=== PATIENT | male | born 1955 | race Caucasian/White ===

== ENCOUNTER 2024-08-31 11:04 | Outpatient (AMB) | payer BC, SELFPAY ==
--- NOTE | 2024-08-31 11:06 | MHC.PC.OV ---
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 Intake Note: patient here for new patient visit Hospice Manager Required: No Allergies No Known Allergies Allergy (Verified 08/31/24 11:42) Medication List - Last Reconciled 08/31/24 by Ford Alexandra CNP amlodipine-benazepril 5-10 mg 1 cap PO DAILY atorvastatin 40 mg PO DAILY dulaglutide (Trulicity) 0.75 mg subcut QWEEK empagliflozin (Jardiance) 25 mg PO QAM escitalopram oxalate 10 mg PO DAILY gabapentin 600 mg PO BID meloxicam 15 mg PO DAILY metformin 500 mg PO DAILY nitroglycerin 0.4 mg sublingual Q5M PRN Tobacco use date assessed: 08/31/24 Fall risk assessment: No Falls in past year Last assessed Fall Risk: 08/31/24 Dental Screening Dental Screen Date: 08/31/24 Did you have a dental visit in the last 12 months?: Yes Did you have a dental problem in the last 6 months where you did not have access to dental care?: No Was dental information given to patient?: Patient has dentist HPI HPI Comments History of Present Illness Details New patient Prior PCP:?[facility], [place], [place]. Lyla Brar APRN Last office visit/CPE: 06/2023 Acute issue(s): Hypertension - He is on amlodipine-benazepril 5-10 mg daily Type 2 diabetes - He is on metformin 500mg daily, trulicity 0.75 mg weekly and Jardiance 25mg daily Neuropathy right lower extremity - He is on gabapentin 600 mg twice daily Arthritis hands and knees - He is on meloxicam 15 mg daily HLD - He is on atorvastatin 40 mg daily Anxiety and depression - He is on escitalopram 10 mg daily h/o cardiac ischemia - He is on Jardiance 25mg daily and nitroglycerin 0.4 mg SL Q5M as needed PMHx: Type 2 diabetes, hyperlipidemia, hypertension, Levy's esophagus, erectile dysfunction, cardiac ischemia, arthritis of hands and knees right bicep tendon rupture, varicose vein of right thigh and left leg, shingles, generalized anxiety disorder, depression SurgHx: Arthroscopy of right knee, vasectomy, trigger finger release, lateral meniscus repair of right knee, carpal tunnel surgery of right and left wrist, rotator cuff surgery, tonsillectomy and adenoidectomy FHx: Mom: Cardiovascular disease, hypertension, hypercholesterolemia. Dad: Esophageal cancer, prostate cancer, hypertension, hyperlipidemia Social History - SocHx: Nonsmoker. drinks 2-3 beers twice weekly. No recreational drugs. - He does not always make dietary choices. He exercises routinely - He generally sleep well - His anxiety and depressive symptoms are controlled Health Maintenance - Last A1c was about a year ago, approximately 7.5% - Last eye exam was in 05/2024. He is also followed by a retinal specialist. He will sign a release for his PCP to obtain his ophthalmology record - Last colonoscopy was about 8 years ago at [facility] with normal findings. He will sign a release for his PCP to obtain record - Last foot exam was 4 years ago. He will be referred to podiatry - He is vaccinated for shingles - He is vaccinated for pneumonia - His last tetanus vaccine was in 2022 - He has not been vaccinated for the flu and will be vaccinated during this visit He was followed by Cardiology in [facility] for cardiac ischemia diagnosed in 2018. He requests new cardiology referral and will be referred to [facility] cardiology. [facility] Medical History (Updated 08/31/24 @ 13:11 by Lucinda Grant) Biceps tendon rupture Varicose veins of right thigh Erectile dysfunction Barretts esophagus Depression Hyperlipidemia Varicose vein of leg Shingles Neuropathy Arthritis Diabetes Cardiac ischemia High cholesterol High blood pressure Surgical History (Updated 08/31/24 @ 13:11 by Lucinda Grant) H/O arthroscopy of right knee History of vasectomy S/P trigger finger release H/O lateral meniscus repair of right knee History of carpal tunnel surgery of left wrist History of carpal tunnel surgery of right wrist History of rotator cuff surgery History of tonsillectomy and adenoidectomy Family History (Updated 08/31/24 @ 13:02 by Lucinda Grant) Mother High blood pressure High cholesterol Cardiovascular disease Father High blood pressure High cholesterol Prostate cancer Esophagus cancer Social History Housing: Apartment Patient Tobacco Use Status: Never used Tobacco e-Cigarette/Vaping Use: Never Used Second Hand Smoke Exposure: No service: No Current occupational status: employed Current occupation: [employer] Current occupational exposures/hazards: Yes Cognitive needs: No Hearing needs: No Vision needs: Yes Questionnaire PHQ-9 Over the last 2 weeks, how often have you been bothered by any of the following problems? 1. Little interest or pleasure in doing things: not at all 2. Feeling down, depressed, or hopeless: not at all 3. Trouble falling or staying asleep, or sleeping too much: not at all 4. Feeling tired or having little energy: not at all 5. Poor appetite or overeating: not at all 6. Feeling bad about yourself - or that you are a failure or have let yourself or your family down: not at all 7. Trouble concentrating on things, such as reading the newspaper or watching television: not at all 8. Moving or speaking so slowly that other people could have noticed. Or the opposite - being so fidgety or restless that you have been moving around a lot more than usual: not at all 9. Thoughts that you would be better off or of hurting yourself in some way: not at all Total score: 0 Depression Screening Interpretation: Positive Depression Screening Done: Yes 03551 - PHQ-9 Billing: Yes Source: Developed by Drs. Marko Castillo, Teri Donaldson, Jay Colindres and colleagues, with an educational jeanette from [employer]. Thrive Questionnaire Date Thrive assessed: 08/31/24 I am a: Patient What is your living situation today?: I have a steady place to live Within the past 12 months, did the food you bought not last and you didn't have the money to get more?: Never true Within the past 12 months, did you worry whether your food would run out before you got money to buy more?: Never true Do you have trouble paying for medicines?: No Do you have trouble getting transportation to medical appointments?: No Do you have trouble paying your heating and electricity bill?: No Do you have trouble taking care of your child, family member or friend?: No Do you have trouble with day-to-day activities such as bathing, preparing meals, shopping, managing finances, etc.?: No Are you currently unemployed and looking for a job?: No Are you interested in more education?: Yes Please select the resources that you would like help with: None Currently or been in a relationship where the following occur: No concerns reported THRIVE Score: 0 AUDIT C Alcohol Use Questionnaire (AUDIT-C) 1. How often do you have a drink containing alcohol?: 2-3 times a week 2. How many drinks containing alcohol do you have on a typical day when you are drinking?: 1 or 2 3. How often do you have six or more drinks on one occasion?: Never Total Score: 3 Score Reviewed/Action Taken: Yes KAREEN-7 AMB Questionnaire KAREEN-7 Date KAREEN - 7 assessed: 08/31/24 Feeling nervous, anxious, or on edge: 0 = Not at all Not being able to stop or control worryin = Not at all Worrying too much about different things: 0 = Not at all Trouble relaxin = Not at all Being so restless that it is hard to sit still: 0 = Not at all Becoming easily annoyed or irritable: 0 = Not at all Feeling afraid as if something awful might happen: 0 = Not at all Total KAREEN-7 score (0-4 normal; 5-9 mild; 10-14 moderate; 15-21 severe): 0 Source: Developed by Drs. Marko Castillo, Teri Donaldson, Jay Colindres and colleagues, with an educational jeanette from [employer]. KAREEN-7 Assessment Billing KAREEN-7 Assessment Tool: KAREEN-7 Assessment 33269 Review of Systems Const Details: Denies chills, Denies fatigue, Denies fever(s), Denies headache(s) and Denies weakness HEENT Denies change in vision, Denies dizziness, Denies headache(s), Denies hearing loss, Denies nasal congestion, Denies sinus pain, Denies sinus pressure and Denies sore throat Card Denies chest pain, Denies lightheadedness, Denies dyspnea and Denies other (palpitations) Resp Denies cough, Denies dyspnea and Denies wheezing GI Denies abdominal pain, Denies melena, Denies hematochezia, Denies change in bowel habits, Denies dyspepsia and Denies nausea Denies hematuria and Denies dysuria Musc Denies abnormal gait, Denies myalgias, Denies arthralgias, Denies numbness and Denies tingling Skin/Breast Denies rash, Denies unusual bruising and Denies wounds Neuro Denies abnormal gait, Denies dizziness, Denies headache(s), Denies memory loss, Denies numbness, Denies Sensory deficit (Neuro), Denies tingling and Denies weakness Psych Denies anxiety, Denies depression and Denies memory loss Endo Denies cold intolerance, Denies fatigue, Denies heat intolerance, Denies polydipsia and Denies polyuria Rico/Lymph Denies easy bleeding and Denies easy bruising Aller/Immun Denies wheezing Physical exam (Primary Care) Vital Signs: Last Vital Signs Temp 98.2 F 08/31/24 11:20 Pulse 79 08/31/24 11:20 Resp 16 08/31/24 11:20 BP 150/90 H 08/31/24 11:40 Pulse Ox 99 08/31/24 11:20 Oxygen Delivery Method Room Air 08/31/24 11:20 BMI result Body Mass Index 34.6 Tobacco/Smoking Status: Tobacco use Status Tobacco use date assessed 08/31/24 08/31/24 11:20 Patient Tobacco Use Status Never used Tobacco 08/31/24 11:20 e-Cigarette/Vaping Use Never Used 08/31/24 11:20 PHQ-9: PHQ-9 Score PHQ-9: Total score 0 08/31/24 14:37 Depression Screening Interpretation: Positive Thrive Assessment: Date of Thrive Assessment Date Thrive assessed 08/31/24 08/31/24 11:09 Currently or been in a relationship where the following occur: No concerns reported Const Other: General: no acute distress, well developed, alert and awake Nutritional Appearance: well nourished Orientation/consciousness: patient oriented x3 HENMT Head: Yes normocephalic and Yes atraumatic Ears: hearing grossly normal bilaterally and TM's normal bilaterally General nose exam: Normal external nose present and Normal nares present Mouth: Normal oral and palatal mucosa present and moist mucous membranes Teeth and gingiva: dentition normal Throat: Yes oropharynx normal Eyes Pupils: Equal, round and reactive pupils present and Pupil accommodation reflex normal EOM: EOMs intact bilaterally Neck Neck: Yes normal visual inspection, Yes no lymphadenopathy and Yes trachea midline Thyroid: Thyroid normal Carotids: no bruits Lymphatic: no lymphadenopathy noted Chest Chest palpation & inspection: normal inspection of the chest Resp Effort & Inspection: normal respiratory effort Auscultation: clear to auscultation bilaterally Cardio Rate: regular rate Rhythm: regular rhythm Heart sounds: S1 normal heart sound present, S2 normal heart sound present, no gallops, no murmurs and no rubs Bruits: no abdominal aortic bruits and no carotid bruits GI Palpation (GI): No Abdominal aortic bruit present, Soft to palpation, nontender, No hepatosplenomegaly present and No Rebound tenderness present Auscultation: normal bowel sounds General: Yes no CVA tenderness Back/Spine/Pelvis Back: no CVA tenderness Cervical Spine: cervical ROM normal and No Cervical spine tenderness Thoracic/Lumbar Spine: thoraco-lumbar ROM normal, No pain with thoraco-lumbar ROM, No thoracic spinal tenderness and No lumbar spinal tenderness Skin General: warm and dry. Normal skin color. Normal skin turgor Lesions: no lesions Rashes: no rashes Trauma: no lacerations or abrasions Wounds: no wounds Nails: normal Neuro General: patient oriented x3, gait normal and CN's II-XI intact bilaterally Cranial nerves: Yes Equal, round and reactive pupils present Cognition (Neuro): normal cognition Gait exam (Neuro): Normal gait present Motor exam (neuro): 5/5 motor strength present throughout Sensory Exam: No Sensory deficit (Neuro) Deep tendon reflexes (DTR's): Right patellar reflex intensity grade: 2+ and Left patellar reflex intensity grade: 2+ Extrem General: Yes normal to inspection, No edema and No calf tenderness Psych Appearance: grossly normal Affect: normal affect Attitude: cooperative Thought process: Normal thought process present Office Procedures Flu Questionnaire Does the patient have a severe egg allergy?: No Does the patient have severe life threatening allergies?: No Does the patient have a fever or illness today?: No Has the patient ever had Guillain-Brandon Syndrome?: No Has the patient ever had any past reaction to a flu shot?: No Results AMB Hemoglobin A1c AMB Hemoglobin A1c 7.2 % Last Edit by Lucinda Grant on 08/31/24 12:57 Immunizations Fluarix Triv [id number] (PF) 45 mcg (15 mcg x 3)/0.5 mL IM syringe Performing Provider: Ford Alexandra CNP Performing Location: [facility] Family Medicine Administered by: Mellissa Agustin RN on 08/31/24 14:08 Dose Route Admin Location Dispensed Lot Number Expiration Date NDC Laboratory Helper 0.5 mL IM Left Deltoid 0.5 mL [id number] 04/03/25 01611-473-47 [employer] VIS Given Date VIS Provided VIS Publication Date 08/31/24 Single Vaccine 21 Eligibility Eligibility Date Funding Source Not [facility] Eligible 08/31/24 Private Results Reviewed Results Reviewed: Laboratory Last Values Hgb A1c (Clinic) 7.2 % (4.0-6.0) H 08/31/24 11:55 Coding Level of Care Code New Pt Level 4 (22296) New Pt Prev Care >65yr (96643) Diagnoses Normal physical examination, routine Z00.00 Diabetes E11.9 High blood pressure I10 Cardiac ischemia I25.9 High cholesterol E78.00 Laboratory tests ordered as part of a complete physical exam (CPE) Z00.00 Additional Codes KAREEN-7 Assessment Billing - KAREEN-7 Assessment Tool: KAREEN-7 Assessment 53149 ([id number]) PHQ-9 - 63764 - PHQ-9 Billing: Yes ([id number]) Assessment & Plan Assessment & Plan (1) Normal physical examination, routine: Code(s): Z00.00 - Encounter for general adult medical examination without abnormal findings Category: Medical Plan: No physical functional limitation noted. (2) Diabetes: Code(s): E11.9 - Type 2 diabetes mellitus without complications Category: Medical Plan: A1c today is 7.2%, slightly above goal of less than 7.0%. Will increase Trulicity to 1.5 mg weekly; advised to take as prescribed. Continue to take metformin Jardiance as prescribed. ADA diet and routine exercise encouraged. Recheck A1c 3 months. Referred to director of occupational health for routine foot exam. Verbalized understanding and agreed with the plan. (3) High blood pressure: Code(s): I10 - Essential (primary) hypertension Category: Medical Plan: Resting blood pressure is 150/90, above goal of less than 130/80. Increased amlodipine-benazepril to 5-20 mg daily. Advised to take as low-sodium diet encouraged. Follow-up in 1 week. Verbalized understanding and with the plan. (4) Cardiac ischemia: Code(s): I25.9 - Chronic ischemic heart disease, unspecified Category: Medical Plan: History of cardiac ischemia diagnosed in 2018. He was followed by Cardiology but has not followed up in a few years. Continue current treatment regimen. Referred to [facility] cardiology. (5) High cholesterol: Code(s): E78.00 - Pure hypercholesterolemia, unspecified Category: Medical Plan: Continue current treatment regimen. Will check lipid panel levels and make changes as needed. Verbalized understanding and agreed with treatment plan. (6) Laboratory tests ordered as part of a complete physical exam (CPE): Code(s): Z00.00 - Encounter for general adult medical examination without abnormal findings Category: Medical Plan: Fasting labs ordered as part of a complete physical exam. Advised to fast for at least 10 hours before getting labs drawn. May drink water Verbalized understanding and agreed with treatment plan. Orders: Orders Comprehensive [place]. Panel Fast Today Z00.00 - Encounter for general adult medical examination without abnormal findings Microalbumin, Random (w Creat) Today Z00.00 - Encounter for general adult medical examination without abnormal findings UA CC w/rflx Micro + Cult Today Z00.00 - Encounter for general adult medical examination without abnormal findings PSA, Ultra Sensitive Today Z00.00 - Encounter for general adult medical examination without abnormal findings AMB Hemoglobin A1c Today Z13.9 - Encounter for screening, unspecified Influenza [id number] Immunization Today Z23 - Encounter for immunization Complete Blood Count Auto Diff Today Z00.00 - Encounter for general adult medical examination without abnormal findings Lipid Panel Today Z00.00 - Encounter for general adult medical examination without abnormal findings TSH reflex Free T4 Today Z00.00 - Encounter for general adult medical examination without abnormal findings Referrals Cardiology Referral I25.9 - Chronic ischemic heart disease, unspecified Podiatry Referral E11.9 - Type 2 diabetes mellitus without complications Medications: New dulaglutide (Trulicity) 1.5 mg (0.5 mL) subcut QWEEK 2 mL 3RF amlodipine-benazepril 5-20 mg 1 cap PO DAILY 30 caps 3RF 30 days
[2024-08-31 11:20] VITALS: BP 148/80; PULSE 79; RESP 16; TEMP 36.8; O2SAT 99; BMI 34.6
[2024-08-31 11:40] VITALS: BP 150/90
== END 2024-08-31 12:35 | disposition home or self-care (01) ==
PROVIDERS: Visit Provider Nurse Practitioner Family
DX: Z00.00 Encounter for general adult medical examination without abnormal findings (principal); E11.9 Type 2 diabetes mellitus without complications; I10 Essential (primary) hypertension; I25.9 Chronic ischemic heart disease, unspecified; E78.00 Pure hypercholesterolemia, unspecified; Z23 Encounter for immunization

== ENCOUNTER → 2024-08-31 11:04 | Outpatient (BNVA) | payer BC, SELFPAY | PROVIDERS: Visit Provider Nurse Practitioner Family | DX: Z00.00 Encounter for general adult medical examination without abnormal findings (principal); Z23 Encounter for immunization; E11.9 Type 2 diabetes mellitus without complications; I10 Essential (primary) hypertension; I25.9 Chronic ischemic heart disease, unspecified; E78.00 Pure hypercholesterolemia, unspecified; Z79.84 Long term (current) use of oral hypoglycemic drugs; Z79.899 Other long term (current) drug therapy | CPT/HCPCS: 83036; 90471; 90656; 96127 ==

== ENCOUNTER 2024-08-31 12:40 | Outpatient (REF) | payer BC, SELFPAY ==
[2024-08-31 14:30] LABS: Appearance Urine Clear; Color Urine Yellow; Glucose Urine UA >=1000 mg/dL (Negative); Leukocyte Esterase Urine Negative (Negative); Nitrite Urine Negative (Negative); Specific Gravity - Urine >= 1.030 (1.005-1.025); UMIC TRIGGER UACC YES; Urine Blood Negative (Negative); Urine Ketones Trace mg/dL (Negative); Urine Protein Negative (Neg-Trace)
[2024-08-31 14:36] LABS: Basophils Absolute Auto 0.1 X10*3/uL (0.0-0.2); Basophils Percent Auto 0.7 % (0-2); Eosinophils Absolute Auto 0.1 X10*3/uL (0.0-0.4); Eosinophils Percent Auto 0.8 % (0-4); Hematocrit 49.7 % (42.0-52.0); Imm Gran Abs Auto 0.05 X10*3/uL (0.00-0.03); Imm Gran Pct Auto 0.7 % (0.0-0.4); Lymphocytes Absolute Auto 1.6 X10*3/uL (1.2-4.9); MANUAL DIFF FLAG SCAN; Mean Corpuscular HGB Conc 34.2 g/dl (31.0-36.0); Mean Corpuscular Hemoglobin 31.8 pg (27.0-33.0); Mean Corpuscular Volume 92.9 fL (80.0-98.0); Mean Platelet Volume 12.6 fL (9.4-12.4); Monocytes Absolute Auto 0.6 X10*3/uL (0.1-1.2); Monocytes Percent Auto 7.5 % (2-11); Neutrophils Percent Auto 68.3 % (45-73); PLT CLUMP 1; Red Blood Count 5.35 X10*6/uL (4.60-5.80); SCAN SMEAR FLAG 1
[2024-08-31 14:37] LABS: White Blood Count 7.3 X10*3/uL (4.8-10.8)
[2024-08-31 14:51] LABS: Alanine Aminotransferase 49 U/L (0-40); Albumin Level 4.6 g/dL (3.5-5.0); Alkaline Phosphatase 91 U/L (39-117); Anion Gap 20 (12-20); Aspartate Amino Transferase 60 U/L (5-37); Bilirubin Total 1.1 mg/dL (0.0-1.0); Blood Urea Nitrogen 15 mg/dL (9-16); Carbon Dioxide 27 mmol/L (22-29); Chloride 98 mmol/L (96-108); Cholesterol 238 mg/dL (<200); Estimated Glomerular Filt Rate > 60; Glucose Fasting 149 mg/dL (60-99); HDL Cholesterol 93 mg/dL (>40); LDL Cholesterol Calculated 123 mg/dL (<100); Potassium 5.1 mmol/L (3.3-5.1); Sodium 140 mmol/L (135-145); Triglycerides 114 mg/dL (<150)
[2024-08-31 14:57] LABS: Platelet Count 153 X10*3/uL (160-400); SLIDE REVIEW VERIFIED
[2024-08-31 15:00] LABS: Creatinine Urine 67.79 mg/dL; Microalbum/Creatinine Ratio Ur 11.8 ug/mg cr (<30)
[2024-08-31 15:06] LABS: TSH reflex Free T4 1.79 uIU/mL (0.32-4.0)
[2024-08-31 15:09] LABS: Bacteria Urine None Seen (None Seen); Hyaline Casts Urine 0-2 /LPF (0-2); RBC Urine 0-2 /HPF (0-2); Squamous Epithelial Cell Urine 0-2 /HPF (0-2); WBC Urine 0-5 /HPF (0-5)
[2024-09-06 07:33] LABS: PSA, Ultra Sensitive 2.12 ng/mL
== END 2024-08-31 12:41 | disposition home or self-care (01) ==
LOC: HO.WFDLDS 12:40
PROVIDERS: Visit Provider Nurse Practitioner Family
DX: Z00.00 Encounter for general adult medical examination without abnormal findings (principal); Z12.5 Encounter for screening for malignant neoplasm of prostate
CPT/HCPCS: 36415; 80053; 80061; 81001; 82043; 82570; 84153; 84443; 85025

== ENCOUNTER 2024-09-16 10:46 | Outpatient (AMB) | payer BC, SELFPAY ==
--- NOTE | 2024-09-16 10:53 | A.OFFPC_ITS ---
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 Allergies No Known Allergies Allergy (Verified 09/16/24 11:05) Medication List - Last Reconciled 09/16/24 by Ford Alexandra CNP amlodipine-benazepril 5-20 mg 1 cap PO DAILY 30 days atorvastatin 40 mg PO DAILY dulaglutide (Trulicity) 1.5 mg (0.5 mL) subcut QWEEK empagliflozin (Jardiance) 25 mg PO QAM escitalopram oxalate 10 mg PO DAILY gabapentin 600 mg PO BID meloxicam 15 mg PO DAILY metformin 500 mg PO DAILY nitroglycerin 0.4 mg sublingual Q5M PRN Tobacco use date assessed: 09/16/24 Fall risk assessment: No Falls in past year Last assessed Fall Risk: 09/16/24 Dental Screening Dental Screen Date: 09/16/24 Did you have a dental visit in the last 12 months?: Yes Did you have a dental problem in the last 6 months where you did not have access to dental care?: No Was dental information given to patient?: Patient has dentist HPI HPI Comments History of Present Illness Details 69-year-old male presents for hypertensi on and review of recent labs follow-up. He admits to taking his medications as prescribed without adverse reactions. He offers no complaints and denies acute symptoms at this time. COUNTS INCLUDE 234 BEDS AT THE [facility] Medical History (Updated 09/16/24 @ 11:21 by Ford Alexandra CNP) Biceps tendon rupture Varicose veins of right thigh Erectile dysfunction Barretts esophagus Depression Hyperlipidemia Varicose vein of leg Shingles Neuropathy Arthritis Diabetes Cardiac ischemia High cholesterol High blood pressure Surgical History (Updated 08/31/24 @ 13:11 by Lucinda Grant) H/O arthroscopy of right knee History of vasectomy S/P trigger finger release H/O lateral meniscus repair of right knee History of carpal tunnel surgery of left wrist History of carpal tunnel surgery of right wrist History of rotator cuff surgery History of tonsillectomy and adenoidectomy Family History (Updated 08/31/24 @ 13:02 by Lucinda Grant) Mother High blood pressure High cholesterol Cardiovascular disease Father High blood pressure High cholesterol Prostate cancer Esophagus cancer Social History Housing: Apartment Patient Tobacco Use Status: Never used Tobacco e-Cigarette/Vaping Use: Never Used Second Hand Smoke Exposure: No service: No Current occupational status: employed 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 [employer] Current occupational exposures/hazards: Yes Cognitive needs: No Hearing needs: No Vision needs: Yes Questionnaire Thrive Questionnaire Date Thrive assessed: 08/28/24 I am a: Patient What is your living situation today?: I have a steady place to live Within the past 12 months, did the food you bought not last and you didn't have the money to get more?: Never true Within the past 12 months, did you worry whether your food would run out before you got money to buy more?: Never true Do you have trouble paying for medicines?: No Do you have trouble getting transportation to medical appointments?: No Do you have trouble paying your heating and electricity bill?: No Do you have trouble taking care of your child, family member or friend?: No Do you have trouble with day-to-day activities such as bathing, preparing meals, shopping, managing finances, etc.?: No Are you currently unemployed and looking for a job?: No Are you interested in more education?: Yes Please select the resources that you would like help with: None Currently or been in a relationship where the following occur: No concerns reported THRIVE Score: 0 KAREEN-7 AMB Questionnaire KAREEN-7 Date KAREEN - 7 assessed: 08/31/24 Source: Developed by Drs. Marko Castillo, Teri Donaldson, Jay Colindres and colleagues, with an educational jeanette from [employer]. Review of Systems Const Details: Const Denies chills, Denies fatigue, Denies fever(s), Denies headache(s) and Denies weakness ENT Denies dizziness and Denies headache(s) Card Denies chest pain, Denies lightheadedness, Denies dyspnea and Denies other (Palpitations) Resp Denies cough, Denies dyspnea, Denies wheezing and Denies other ( shortness of breath) GI Denies abdominal pain, Denies melena, Denies hematochezia, Denies change in bowel habits, Denies dyspepsia and Denies nausea Denies hematuria and Denies dysuria Musc Denies abnormal gait, Denies myalgias, Denies arthralgias, Denies numbness and Denies tingling Skin/Breast Denies rash, Denies unusual bruising and Denies wounds Neuro Denies abnormal gait, Denies dizziness, Denies headache(s), Denies memory loss, Denies numbness, Denies Sensory deficit (Neuro), Denies tingling and Denies weakness Psych Denies anxiety, Denies depression, Denies memory loss Endo Denies cold intolerance, Denies fatigue, Denies heat intolerance, Denies polydipsia and Denies polyuria Aller/Immun Denies wheezing Physical exam (Primary Care) Tobacco/Smoking Status: Tobacco use Status Tobacco use date assessed 08/31/24 09/16/24 10:54 Patient Tobacco Use Status Never used Tobacco 09/16/24 10:54 e-Cigarette/Vaping Use Never Used 09/16/24 10:54 Thrive Assessment: Date of Thrive Assessment Date Thrive assessed 08/28/24 09/16/24 10:54 Currently or been in a relationship where the following occur: No concerns reported Const Other: General: no acute distress and well developed Nutritional Appearance: well nourished Orientation/consciousness: patient oriented x3 HENMT Head: Yes normocephalic and Yes atraumatic Eyes General: appearance normal, both eyes and all related structures Pupils: Equal, round and reactive pupils present EOM: EOMs intact bilaterally Resp Effort & Inspection: normal respiratory effort Auscultation: clear to auscultation bilaterally Cardio Rate: regular rate Rhythm: regular rhythm Heart sounds: S1 normal heart sound present, S2 normal heart sound present, no gallops, no murmurs and no rubs GI Palpation (GI): No Abdominal aortic bruit present, Soft to palpation, nontender, No hepatosplenomegaly present and No Rebound tenderness present Auscultation: normal bowel sounds General: Yes no CVA tenderness Back/Spine/Pelvis Back: no CVA tenderness Cervical Spine: cervical ROM normal and No Cervical spine tenderness Thoracic/Lumbar Spine: thoraco-lumbar ROM normal, No pain with thoraco-lumbar ROM, No thoracic spinal tenderness and No lumbar spinal tenderness Extrem General: Yes normal to inspection, No edema and No calf tenderness Skin General: warm and dry. Normal skin color. Normal skin turgor Neuro General: patient oriented x3, gait normal and no focal neuro deficit Cranial nerves: Yes Equal, round and reactive pupils present Cognition (Neuro): normal cognition Gait exam (Neuro): Normal gait present Sensory Exam: No Sensory deficit (Neuro) Psych Appearance: grossly normal Affect: normal affect Attitude: cooperative Thought process: Normal thought process present Coding Level of Care Code Est Pt Level 4 (79904) Diagnoses High blood pressure I10 Transaminitis R74.01 High cholesterol E78.00 Thrombocytopenia D69.6 Hyperbilirubinemia E80.6 Assessment & Plan Assessment & Plan (1) High blood pressure: Code(s): I10 - Essential (primary) hypertension Category: Medical Plan: Blood pressure today is 128/70, within goal of less than 130/80. Continue current treatment regimen. Follow-up 10 weeks for hypertension, diabetes, anxiety, depression or sooner with worsening or new symptoms. Verbalized understanding and agreed with treatment plan. (2) Transaminitis: Code(s): R74.01 - Elevation of levels of liver transaminase levels Category: Medical Plan: Recent AST and ALT levels elevated, 60 and 49 respectively. He notes history of fatty liver disease. Healthy diet and routine exercise encouraged. Will monitor liver enzyme periodically or based on symptoms. Verbalized understanding and agreed with the plan. (3) High cholesterol: Code(s): E78.00 - Pure hypercholesterolemia, unspecified Category: Medical Plan: Recent total cholesterol and LDL levels are elevated, 238 and 123 respectively. LDL goal is less than 70. He also has history of cardiac ischemia. Will increase atorvastatin to 80 mg daily. Advised to take as prescribed. Advised to limit foods high in saturated fat and avoid foods high in trans fat. Routine exercise encouraged. Fast for 10-12 hours, may drink water, and get lipid panel blood work done 2-3 days before next visit. Verbalized understanding and agreed with the treatment plan. (4) Thrombocytopenia: Code(s): D69.6 - Thrombocytopenia, unspecified Category: Medical Plan: Recent platelet count is slightly low, 153. Will recheck platelet level and make changes as needed. (5) Hyperbilirubinemia: Code(s): E80.6 - Other disorders of bilirubin metabolism Category: Medical Plan: Recent bilirubin level is slightly elevated, 1.1. Gilbert syndrome is possible. Will recheck bilirubin levels and make changes as needed. Orders: Orders Lipid Panel 10 Weeks E78.00 - Pure hypercholesterolemia, unspecified, I25.9 - Chronic ischemic heart disease, unspecified Platelet Count Today D69.6 - Thrombocytopenia, unspecified, E80.6 - Other disorders of bilirubin metabolism Bilirubin Total Today E80.6 - Other disorders of bilirubin metabolism Medications: New atorvastatin 80 mg PO BEDTIME 90 days 90 tabs 1RF
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
--- OUTSIDE RECORDS SUMMARY | 2024-09-16 10:53 | XMS_ITS ---
Author Name [facility] Organization Unknown History of Medication Use Medication Directions Dispensed Refills Start Date End Date Stat METFORMIN HCL PO Take by mouth. 08/28/202410/04 active Problems Problem Status Onset Date Problem Type Date of Resoluti on Source Injury active EncounterDiagnosisAct CCT
[2024-09-16 10:57] VITALS: BP 128/78; PULSE 75; RESP 16; TEMP 36.4; O2SAT 100; BMI 34.9
== END 2024-09-16 11:18 | disposition home or self-care (01) ==
PROVIDERS: Visit Provider Nurse Practitioner Family
DX: I10 Essential (primary) hypertension (principal); R74.01 Elevation of levels of liver transaminase levels; E78.00 Pure hypercholesterolemia, unspecified; D69.6 Thrombocytopenia, unspecified; E80.6 Other disorders of bilirubin metabolism

== ENCOUNTER 2024-11-25 09:56 | Outpatient (REF) | payer BC, SELFPAY ==
--- OUTSIDE RECORDS SUMMARY | 2024-11-25 10:38 | XMS_ITS ---
Author Organization [facility] [place] Address [address] [place] [address] Care Team Providers Care Spinner Box Name Role Phone Ibrahima ORACLE MANUFACTURING CONSULTANT, [facility] Primary Care Provider Unavail able Melanie Sargent Unavailable [phone] REASON FOR VISIT rs from 12/02/24 Encounters Encounter Location Date Provider Diagnosis [address] [address] 09/21/2024 Melanie Sargent Plan Of Treatment Next Appt Details Provider Name:Melanie harden, 12/09/2024 10:30:00 AM, [address] [place] [address], [phone], Progress Notes * Prince REESDOB:[birth year] (69 yo M)Acc No.[id number]:09/21/2024 Patient:?Prince REES :1955???Age:69 Y???Sex:Male Address:[address], [place], [address] * true * Date:? Generated for Printi ng/Faxing/eTransmitting on:?11/25/2024 10:37 AM EST
--- OUTSIDE RECORDS SUMMARY | 2024-11-25 10:38 | XMS_ITS | Patient Health Record ---
Author Organization [facility] Address [address] [place] [address] Care Team Providers Care Hydraulics Engineer Name Role Phone Ibrahima ACEVES, [facility] Primary Care Provider Unavail Melanie Gomez Unavailable [phone] Reason For Referral No Information Social History Tobacco Use: Social History Observation Description Date Details (start date - stop date) Never Smoker NA - NA Tobacco use other than smoking: Question Answer Notes Are you an other tobacco user? No Tobacco Control (Standard) Question Answer Notes Tobacco use: Nonsmoker Additional Findings: Tobacco non-user Current no nsmoker AUDIT-C (Standard) Question Answer Notes Did you have a drink contain ing alcohol in the past year? Yes How often did you have a dri nk containing alcohol in the past year? Declined to specify (0 point) How many drinks did you have on a typical day when you were drinking in the past year? Declined to specify (0 point) How often did you have six o r more drinks on one occasion in the past year? Declined to specify (0 point) Points 0 Interpretation Negative Encounters Encounter Location Date Provider Diagnosis [facility] [address] [place] [address] 09/21/2024 Melanie Sargent Plan Of Treatment Next Appt Details Provider Name:Melanie harden, 12/09/2024 10:30:00 AM, [address] [place], [address], Insurance Providers Payer Name Payer Address Payer Phone Subscriber Number Group Number Insured Name Patient Relationship to Insured Coverage Start Date Coverage End Date [facility] [address] [place] [address] [id number] Prince Rees Self - patient is the insured Medical (General) History Medical History History ICD Code Anxiety Arthritis CAD (Cholesterol) covid-19 type II diabetes Heart disease High Blood Pressure Numbness Scarlet fever Vascular phlebitis (clots) Measles Mumps Chicken pox Surgical History Surgery Date(Month/Year) tonsillectomy and adenoidectomy 1961 carpal tunnel surgery l/r 1988/1997/2012 rotator cuff tear repair 1994 vericose vein removed 2012 [facility] right 2022 [facility] left 2020 latenal mewiscus repair right 2014 trigger finger release 2021
--- OUTSIDE RECORDS SUMMARY | 2024-11-25 10:38 | XMS_ITS | Clinical Summary ---
Author Organization [facility] Address [address] [place] [address] Care Team Providers Care Barbering Instructor Name Role Phone Lyla Brar [employer] Primary Care Provider [phone] Surgical History Surgery Date Site/Laterality Comments UPPER GASTROINTESTINAL ENDOSCOPY PROCEDURE:UPPER GASTROINTESTINAL ENDOSCOPY COLONOSCOPY PROCEDURE:COLONOSCOPY TONSILLECTOMY PROCEDURE:TONSILLECTOMY HAND SURGERY PROCEDURE:HAND SURGERY;COMMENT:galo carpal tunnel SHOULDER SURGERY PROCEDURE:SHOULDER SURGERY;COMMENT:rt rotator cuff VEIN SURGERY PROCEDURE:VEIN SURGERY;COMMENT:rt leg vein stripping COLONOSCOPY 12/14/2014 N/A PROCEDURE:COLONOSCOPY;COMMENT :Procedure: COLONOSCOPY SCREEN; Surgeon: Molly Aponte MD; Location: [facility] END[facility]; Service: Gastroenterology; Laterality: N/A; UPPER GASTROINTESTINAL ENDOSCOPY 10/03/2014 N/A PROCEDURE:UPPER GASTROINTESTINAL ENDOSCOPY;COMMENT:Procedure: UPPER ENDOSCOPY-EGD, ABDOMINAL PAIN, GI BLEED; Surgeon: Molly Aponte MD; Location: [facility] END[facility]; Service: Gastroenterology; Laterality: N/A; Medical History Medical History Date Comments GERD (gastroesophageal reflux disease) DX:GERD (gastroesophageal reflux disease) Levy esophagus DX:Levy eso phagus Hypertension DX:Hypertension Hyperlipidemia DX:Hyperlipidemi a Peripheral neuropathy DX:Periphe ral neuropathy Diabetes mellitus, type II (CMS/HCC) DX:Diabetes mellitus, type II (HCC) Rash DX:Rash;COMMENT: occ fungus infection on feet Social History Tobacco Use Types Packs/Day Years Used Date Smoking Tobacco: Never Smokeless Tobacco: Never Alcohol Use Standard Drinks/Week Comments Yes 0 (1 standard drink = 0.6 oz pur e alcohol) Sex and Gender Information Value Date Recorded Sex Assigned at Not on file Legal Sex Male 12:11 PM EST Gender Identity Not on file Sexual Orientation Not on file Obstetrics History Last Filed Vital Signs Vital Sign Reading Time Taken Comments Blood Pressure 138/70 06/03/2023 1:16 PM EDT Sitting Left arm Pulse 86 06/03/2023 1:16 PM EDT Temperature - - Respiratory Rate - - Oxygen Saturation - - Inhaled Oxygen Concentration - - Weight 111 kg (244 lb) 06/03/2023 1:16 PM EDT Height 177.8 cm (5' 10 ) 06/03/2023 1:1 6 PM EDT Body Mass Index 35.01 06/03/2023 1:16 PM EDT Plan of Treatment Health Maintenance Due Date Last Done Comments DTaP,Tdap,and Td Vaccines (1 - Tdap) 1975 Pneumococcal Vaccine: 50+ Ye ars (1 of 1 - PCV) 2006 Zoster Vaccines (1 of 2) 2006 Abdominal Aortic Aneurysm (A AA) Screen 09/12/2022 Colorectal Cancer Screening: Colonoscopy 09/12/2022 Depression Screening 09/12/2022 Falls Risk Assessment 09/12/2022 Hepatitis C Screening 09/12/2022 Social Influencers of Health Screening 09/12/2022 Hypertension/CHF/CAD Annual BMP Blood Test 09/13/2022 12/19/2019 COVID-19 Vaccine ( - 2023-2 5 season) 2024 Influenza Vaccine (#1) 2024 Cholesterol Screening (Lipid Panel) 12/18/2024 12/19/2019 RSV Immunization Patients 60 + Years Old (1 - 1-dose 75+ series) 2031 HIB Vaccines Aged Out No longer eligi ble based on patient's age to complete this topic HPV Vaccines Aged Out No longer eligi ble based on patient's age to complete this topic Hepatitis A Vaccines Aged Out No long er eligible based on patient's age to complete this topic Hepatitis B Vaccines Aged Out No long er eligible based on patient's age to complete this topic IPV Vaccines Aged Out No longer eligi ble based on patient's age to complete this topic MMR Vaccines Aged Out No longer eligi ble based on patient's age to complete this topic Meningococcal ACWY Vaccine Aged Out N o longer eligible based on patient's age to complete this topic Meningococcal B Vacine Aged Out No lo nger eligible based on patient's age to complete this topic RSV Immunization Patients Un nita 20 months Aged Out No longer eligible b ased on patient's age to complete this topic Varicella Vaccines Aged Out No longer eligible based on patient's age to complete this topic Care Teams Barbering Instructor Relationship Specialty Start Date End Date Lyla Brar NP [address] [place] [phone] PCP - General Family Medicine 09/22/14
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
--- OUTSIDE RECORDS SUMMARY | 2024-11-25 10:39 | XMS_ITS | Clinical Summary ---
Author Organization [facility] Address [address] [place] [address] Care Team Providers Care Mohel Name Role Phone Lyla Brar APRN Primary Care Provider [phone] Allergies No known active allergies Medications Medication Sig Dispensed Refills Start Date End Date Status metFORMIN (GLUCOPHAGE) tablet 500 mg Take 1 tablet (500 mg total) by mouth 2 (two) times a day. 0 Active amLODIPine-benazepri l (LOTREL 5-10) 5-10 MG per capsule Take 1 capsule by mouth daily. 0 Active fexofenadine (MARY) 180 MG tablet Take 1 tablet (180 mg total) by mouth daily. 0 Active polyethylene glycol (MIRALAX) packet Take 17 g by mouth daily. 0 Active aspirin EC 81 MG tablet Take 1 tablet (81 mg total) by mouth daily. Stopped per instructions 0 Active Multiple Vitamin (MULTI-VITAMIN DAILY PO) Take by mouth daily. 0 Active Probiotic Product (PROBIOTIC DAILY PO) Take by mouth. 0 Active meloxicam (MOBIC) 15 MG tablet Take 1 tablet (15 mg total) by mouth daily. 0 Active dulaglutide (TRULICITY) 0.75 MG/0.5ML subcutaneous pen-injector Inject under the skin. 0 Active Empagliflozin (Jardiance) 25 MG TABS Take 25 mg by mouth daily. 0 Active gabapentin (NEURONTIN) 600 MG tablet Take 1 tablet (600 mg total) by mouth 3 (three) times a day. 0 Active nitroglycerin (NITROSTAT) 0.4 MG SL tabletIndications:Es sential hypertension,Mixed hyperlipidemia,Atypi jaswant chest pain Place 1 tablet (0.4 mg total) under the tongue every 5 (five) minutes as needed for chest pain. 25 tablet 3 05/21/2022 Active escitalopram (LEXAPRO) tablet 10 mg Take 1 tablet (10 mg total) by mouth daily. 0 05/12/2023 Active OneTouch Verio test strip TEST TWICE A DAY 0 04/27/2023 Active atorvastatin (LIPITOR) tablet 40 mgIndications:Mixed hyperlipidemia TAKE 1 TABLET BY MOUTH EVERY DAY 90 tablet 3 02/26/2024 Active Active Problems Problem Noted Date Diagnosed Date Atypical chest pain 11/15/2018 Essential hypertension 11/15/2018 Mixed hyperlipidemia 11/15/2018 History of nuclear stress test 11/15/2018 Social History Tobacco Use Types Packs/Day Years Used Date Smoking Tobacco: Never Passive Smoke Exposure: Past Smokeless Tobacco: Never Tobacco Cessation:Counseling Given: Not Answered Alcohol Use Standard Drinks/Week Comments Yes 0 (1 standard drink = 0.6 oz pur e alcohol) Sex and Gender Information Value Date Recorded Sex Assigned at Not on file Gender Identity Not on file Sexual Orientation Not on file Job Start Date Occupation Industry Not on file Not on file Not on file Last Filed Vital Signs Vital Sign Reading Time Taken Comments Blood Pressure 138/70 06/03/2023 1:16 PM EDT Pulse 86 06/03/2023 1:16 PM EDT Temperature 36.5 ??C (97.7 ??F) 05/21/2022 9:10 AM ED T Respiratory Rate 14 12/14/2014 12:35 PM EDT Oxygen Saturation 97% 06/03/2023 1:16 PM EDT Inhaled Oxygen Concentration - - Weight 110.7 kg (244 lb) 06/03/2023 1:16 PM EDT Height 177.8 cm (5' 10 ) 06/03/2023 1:16 PM EDT Body Mass Index 35.01 06/03/2023 1:16 PM EDT Plan of Treatment Health Maintenance Due Date Last Done Comments Hepatitis C Screening 1955 COVID-19 Vaccine (#1) 1956 Depression Screening 1968 BMI Counseling 1974 Preventative Health Evaluation 1974 Shingrix-Zoster Vaccine (1 of 2) 2006 Fall Risk Assessment 2021 DTap / Tdap / Td (1 - Tdap) 10/28/2022 10/27/2022 Pneumococcal Vaccine (2 of 2 - PCV) 10/27/2023 10/27/2022 Influenza Vaccine (#1) 2024 07/15/2022 Colon Cancer Screening (Colonoscopy) 12/14/2024 12/14/2014 RSV Adult > 60+ Yrs or Pregn ant (1 - 1-dose 75+ series) 2031 Hepatitis B Vaccines Aged Out No long er eligible based on patient's age to complete this topic RSV Ped < 20 months Aged Out No longe r eligible based on patient's age to complete this topic Advance Directives For more information, please contact: [phone] Latest Code Status on File Code Status Date Activated Date Inactivated Comments Full Code 12/14/2014 12:13 PM 12/14/2014 7:19 PM This code status was ascertained in the following way: discussion with patient. Code Status History Code Status Date Activated Date Inactivated Comments Full Code 10/03/2014 2:36 PM 10/03/2014 9:32 PM Thi s code status was ascertained in the following way: discussion with patient. Care Teams Mohel Relationship Specialty Start Date End Date Lyla Brar APRN [address] [place] [address] PCP - General Family Medicine 09/22/14
--- OUTSIDE RECORDS SUMMARY | 2024-11-25 10:39 | XMS_ITS | Clinical Summary ---
Author Organization [facility] Address [address] [place] [address] Care Team Providers Care Membership Secretary Name Role Phone Ford Alexandra KETAN Primary Care Provider [phone] Allergies No known active allergies Medications Medication Sig Dispensed Refills Start Date End Date Status Atorvastatin Calcium (LIPITOR PO) Take by mouth. Active Dulaglutide (TRULICITY SC) Inject under the skin. Active MELOXICAM PO Take by mouth. Active GABAPENTIN PO Take by mouth. Active METFORMIN HCL PO Take by mouth. Acti ve ASPIRIN 81 PO Take by mouth. Active Encounters Date Type Department Care Team Description 08/25/2024 2:08 PM EST - 08/25/2024 11:59 PM EST Hospital Encounter [facility] Radiology [address] [place] [address] System, Provider Not In Injury Discharge Disposition: Home or Self Care 08/25/2024 Travel from Last 3 Months Social History Tobacco Use Types Packs/Day Years Used Date Smoking Tobacco: Never Smokeless Tobacco: Never Alcohol Use Standard Drinks/Week Comments Yes 0 (1 standard drink = 0.6 oz pur e alcohol) socially Sex and Gender Information Value Date Recorded Sex Assigned at Not on file Gender Identity Not on file Sexual Orientation Not on file Last Filed Vital Signs Vital Sign Reading Time Taken Comments Blood Pressure 149/83 06/17/2019 12:25 AM EDT Pulse 75 06/17/2019 12:25 AM EDT Temperature 36.9 ??C (98.4 ??F) 06/17/2019 12:25 AM E DT Respiratory Rate 16 06/17/2019 12:25 AM EDT Oxygen Saturation 94% 06/17/2019 12:25 AM EDT Inhaled Oxygen Concentration - - Weight 117 kg (258 lb) 06/16/2019 10:55 PM EDT Height 177.8 cm (5' 10 ) 06/16/2019 10:55 PM EDT Body Mass Index 37.02 06/16/2019 10:55 PM EDT Plan of Treatment Health Maintenance Due Date Last Done Comments Hepatitis C Virus Screening 1955 DTaP/Tdap/Td Vaccines (1 - Tdap) 1975 Colonoscopy 2001 Pneumococcal Vaccines 50+ (1 of 1 - PCV) 2006 Zoster (Shingles) Vaccine (1 of 2) 2006 Influenza Vaccine 05/05/2024 07/15/2022, , 06/25/2016, Additional history exists COVID-19 Vaccine ( season) 2024 09/03/2022, 02/04/2021, 01/14/2021 RSV Vaccine 60 years and older and Patients (1 - 1-dose 75+ series) 2031 Hepatitis B Vaccines Aged Out No long er eligible based on patient's age to complete this topic Procedures Procedure Name Priority Date/Time Associated Diagnosis Comments XR HAND 3+ VIEWS-LEFT Routine 08/25/2024 2:19 PM EST Injury from Last 3 Months Results * XR Hand 3+ views-Left (08/25/2024 2:19 PM EST) Anatomical Region Laterality Modality Hand Left Computed Radiogr aphy 08/27/2024 9:05 PM EST Impressions 08/27/2024 9:06 PM EST Postoperative change. No fracture. Narrative 08/27/2024 9:06 PM EST 3 views are performed of the left hand. Postoperative changes are seen. The trapezium has been removed. Bony alignment is normal. No fracture is seen. There is a lucent area in the distal phalanx of the thumb, possibly an enchondroma. There is no other abnormality. Procedure Note Christian Valera MD - 08/27/2024 3 views are performed of the left hand. Postoperative changes are seen.The trapezium has been removed. Bony alignment is normal. No fracture isseen. There is a lucent area in the distal phalanx of the thumb, possiblyan enchondroma. There is no other abnormality. IMPRESSION: Postoperative change. No fracture. Imelda Esqueda DO IMG DIAGNOSTIC IMAGING ORDERABLES from Last 3 Months Care Teams Membership Secretary Relationship Specialty Start Date End Date Ford Alexandra NP [address] [place] [address] PCP - General 08/25/24
[2024-11-25 11:16] LABS: Platelet Count 181 X10*3/uL (160-400)
[2024-11-25 11:37] LABS: Bilirubin Total 0.9 mg/dL (0.0-1.0); Cholesterol 155 mg/dL (<200); HDL Cholesterol 70 mg/dL (>40); LDL Cholesterol Calculated 77 mg/dL (<100); Triglycerides 42 mg/dL (<150)
== END 2024-11-25 09:57 | disposition home or self-care (01) ==
LOC: HO.WFDLDS 09:56
PROVIDERS: Visit Provider Nurse Practitioner Family
DX: E78.00 Pure hypercholesterolemia, unspecified (principal); D69.6 Thrombocytopenia, unspecified; E80.6 Other disorders of bilirubin metabolism; I25.9 Chronic ischemic heart disease, unspecified
CPT/HCPCS: 36415; 80061; 82247; 85049

== ENCOUNTER 2024-12-02 09:52 | Outpatient (AMB) | payer BC, SELFPAY ==
--- NOTE | 2024-12-02 09:55 | A.OFFPC_ITS ---
Vital Signs 12/02/24 10:02 12/02/24 10:29 Height 5 ft 10 in Weight 238 lb BMI 34.1 BP 136/75 104/64 Blood Pressure Location Lt brachial Rt brachial Position Sitting Sitting Respiration 16 Pulse 68 64 Pulse Source Pulse Oximeter Auscultation Temp 97.6 F Temp Source Oral Pulse Oximetry (%) 95 Oxygen Delivery Method Room Air Intake Visit Reasons: 10 wks HTN, DM, anx, dep (on/after 12/01) Intake Note: patient here for follow up on HTN,DM anxiety and depression Design Specialist Required: No Allergies No Known Allergies Allergy (Verified 12/02/24 10:25) Medication List - Last Reconciled 12/02/24 by Ford Alexandra CNP amlodipine-benazepril 5-20 mg 1 cap PO DAILY 30 days atorvastatin 80 mg PO BEDTIME 90 days dulaglutide (Trulicity) 1.5 mg (0.5 mL) subcut QWEEK empagliflozin (Jardiance) 25 mg PO QAM escitalopram oxalate 10 mg PO DAILY 90 days gabapentin 600 mg PO BID meloxicam 15 mg PO DAILY metformin 500 mg PO DAILY nitroglycerin 0.4 mg sublingual Q5M PRN Tobacco use date assessed: 12/02/24 Fall risk assessment: No Falls in past year Last assessed Fall Risk: 12/02/24 Dental Screening Dental Screen Date: 12/02/24 Did you have a dental visit in the last 12 months?: Yes Did you have a dental problem in the last 6 months where you did not have access to dental care?: No Was dental information given to patient?: Patient has dentist HPI HPI Comments History of Present Illness Details 69-year-old male presents for hypertensi on, diabetes, anxiety, and depression follow-up. He admits to taking his medications as prescribed without adverse reactions. He notes that he has been making healthy dietary choices, including low carbs and salt, and exercising routinely. Reports controlled anxiety and depressive symptoms. He offers no complaints and denies acute symptoms at this time. [facility] Medical History (Updated 12/02/24 @ 10:17 by Ford Alexandra CNP) Biceps tendon rupture Varicose veins of right thigh Erectile dysfunction Barretts esophagus Depression Hyperlipidemia Varicose vein of leg Shingles Neuropathy Arthritis Diabetes Cardiac ischemia High cholesterol High blood pressure Surgical History (Updated 08/31/24 @ 13:11 by Lucinda Grant) H/O arthroscopy of right knee History of vasectomy S/P trigger finger release H/O lateral meniscus repair of right knee History of carpal tunnel surgery of left wrist History of carpal tunnel surgery of right wrist History of rotator cuff surgery History of tonsillectomy and adenoidectomy Family History (Updated 08/31/24 @ 13:02 by Lucinda Grant) Mother High blood pressure High cholesterol Cardiovascular disease Father High blood pressure High cholesterol Prostate cancer Esophagus cancer Social History Housing: Apartment Patient Tobacco Use Status: Never used Tobacco e-Cigarette/Vaping Use: Never Used Second Hand Smoke Exposure: No service: No Current occupational status: employed Current occupation: [employer] Current occupational exposures/hazards: Yes Cognitive needs: No Hearing needs: No Vision needs: Yes Questionnaire PHQ-9 Over the last 2 weeks, how often have you been bothered by any of the following problems? 1. Little interest or pleasure in doing things: not at all 2. Feeling down, depressed, or hopeless: not at all 3. Trouble falling or staying asleep, or sleeping too much: not at all 4. Feeling tired or having little energy: not at all 5. Poor appetite or overeating: not at all 6. Feeling bad about yourself - or that you are a failure or have let yourself or your family down: not at all 7. Trouble concentrating on things, such as reading the newspaper or watching television: not at all 8. Moving or speaking so slowly that other people could have noticed. Or the opposite - being so fidgety or restless that you have been moving around a lot more than usual: not at all 9. Thoughts that you would be better off or of hurting yourself in some way: not at all Total score: 0 Depression Screening Interpretation: Negative Depression Screening Done: Yes 10391 - PHQ-9 Billing: Yes Source: Developed by Drs. Marko Castillo, Teri Donaldson, Jay Colindres and colleagues, with an educational jeanette from [employer]. Thrive Questionnaire Date Thrive assessed: 12/02/24 I am a: Patient What is your living situation today?: I have a steady place to live Within the past 12 months, did the food you bought not last and you didn't have the money to get more?: Never true Within the past 12 months, did you worry whether your food would run out before you got money to buy more?: Never true Do you have trouble paying for medicines?: No Do you have trouble getting transportation to medical appointments?: No Do you have trouble paying your heating and electricity bill?: No Do you have trouble taking care of your child, family member or friend?: No Do you have trouble with day-to-day activities such as bathing, preparing meals, shopping, managing finances, etc.?: No Are you currently unemployed and looking for a job?: No Are you interested in more education?: Yes Please select the resources that you would like help with: None Currently or been in a relationship where the following occur: No concerns reported THRIVE Score: 0 AUDIT C Alcohol Use Questionnaire (AUDIT-C) 1. How often do you have a drink containing alcohol?: 2-4 times a month 2. How many drinks containing alcohol do you have on a typical day when you are drinking?: 1 or 2 3. How often do you have six or more drinks on one occasion?: Never Total Score: 2 Score Reviewed/Action Taken: Yes KAREEN-7 AMB Questionnaire KAREEN-7 Date KAREEN - 7 assessed: 12/02/24 Feeling nervous, anxious, or on edge: 0 = Not at all Not being able to stop or control worryin = Not at all Worrying too much about different things: 0 = Not at all Trouble relaxin = Not at all Being so restless that it is hard to sit still: 0 = Not at all Becoming easily annoyed or irritable: 0 = Not at all Feeling afraid as if something awful might happen: 0 = Not at all Total KAREEN-7 score (0-4 normal; 5-9 mild; 10-14 moderate; 15-21 severe): 0 Source: Developed by Drs. Marko Castillo, Teri Donaldson, Jay Colindres and colleagues, with an educational jeanette from [employer]. KAREEN-7 Assessment Billing KAREEN-7 Assessment Tool: KAREEN-7 Assessment 83386 Review of Systems Const Details: Const Denies chills, Denies fatigue, Denies fever(s), Denies headache(s) and Denies weakness ENT Denies dizziness and Denies headache(s) Card Denies chest pain, Denies lightheadedness, Denies dyspnea and Denies other (Palpitations) Resp Denies cough, Denies dyspnea, Denies wheezing and Denies other ( shortness of breath) GI Denies abdominal pain, Denies melena, Denies hematochezia, Denies change in bowel habits, Denies dyspepsia and Denies nausea Denies hematuria and Denies dysuria Musc Denies abnormal gait, Denies myalgias, Denies arthralgias, Denies numbness and Denies tingling Skin/Breast Denies rash, Denies unusual bruising and Denies wounds Neuro Denies abnormal gait, Denies dizziness, Denies headache(s), Denies memory loss, Denies numbness, Denies Sensory deficit (Neuro), Denies tingling and Denies weakness Psych Denies anxiety, Denies depression, Denies memory loss Endo Denies cold intolerance, Denies fatigue, Denies heat intolerance, Denies polydipsia and Denies polyuria Aller/Immun Denies wheezing Physical exam (Primary Care) Vital Signs: Last Vital Signs Temp 97.6 F 12/02/24 10:02 Pulse 68 12/02/24 10:02 Resp 16 12/02/24 10:02 BP 136/75 12/02/24 10:02 Pulse Ox 95 12/02/24 10:02 Oxygen Delivery Method Room Air 12/02/24 10:02 BMI result Body Mass Index 34.1 Tobacco/Smoking Status: Tobacco use Status Tobacco use date assessed 12/02/24 12/02/24 10:06 Patient Tobacco Use Status Never used Tobacco 12/02/24 09:59 e-Cigarette/Vaping Use Never Used 12/02/24 09:59 PHQ-9: PHQ-9 Score PHQ-9: Total score 0 12/02/24 10:15 Depression Screening Interpretation: Negative Thrive Assessment: Date of Thrive Assessment Date Thrive assessed 12/02/24 12/02/24 09:59 Currently or been in a relationship where the following occur: No concerns reported Const Other: General: no acute distress and well developed Nutritional Appearance: well nourished Orientation/consciousness: patient oriented x3 HENMT Head: Yes normocephalic and Yes atraumatic Eyes General: appearance normal, both eyes and all related structures Pupils: Equal, round and reactive pupils present EOM: EOMs intact bilaterally Resp Effort & Inspection: normal respiratory effort Auscultation: clear to auscultation bilaterally Cardio Rate: regular rate Rhythm: regular rhythm Heart sounds: S1 normal heart sound present, S2 normal heart sound present, no gallops, no murmurs and no rubs GI Palpation (GI): No Abdominal aortic bruit present, Soft to palpation, nontender, No hepatosplenomegaly present and No Rebound tenderness present Auscultation: normal bowel sounds General: Yes no CVA tenderness Back/Spine/Pelvis Back: no CVA tenderness Cervical Spine: cervical ROM normal and No Cervical spine tenderness Thoracic/Lumbar Spine: thoraco-lumbar ROM normal, No pain with thoraco-lumbar ROM, No thoracic spinal tenderness and No lumbar spinal tenderness Extrem General: Yes normal to inspection, No edema and No calf tenderness Skin General: warm and dry. Normal skin color. Normal skin turgor Neuro General: patient oriented x3, gait normal and no focal neuro deficit Cranial nerves: Yes Equal, round and reactive pupils present Cognition (Neuro): normal cognition Gait exam (Neuro): Normal gait present Sensory Exam: No Sensory deficit (Neuro) Psych Appearance: grossly normal Affect: normal affect Attitude: cooperative Thought process: Normal thought process present Results AMB Hemoglobin A1c AMB Hemoglobin A1c 6.5 % Last Edit by Lucinda Grant on 12/02/24 10:37 Coding Level of Care Code Est Pt Level 3 (46801) Diagnoses High blood pressure I10 Diabetes E11.9 High cholesterol E78.00 Anxiety and depression F41.9; F32.A Additional Codes KAREEN-7 Assessment Billing - KAREEN-7 Assessment Tool: KAREEN-7 Assessment 52407 ([id number]) PHQ-9 - 28914 - PHQ-9 Billing: Yes ([id number]) Assessment & Plan Assessment & Plan (1) High blood pressure: Code(s): I10 - Essential (primary) hypertension Category: Medical Plan: Resting blood pressure is 104/64, within goal of less than 130/80. He has been maintaining low-sodium diet which is a likely cause for his improved blood pressure. Amlodipine 5 mg daily discontinued and benazepril 20 mg daily ordered; advised to take as prescribed. Low-sodium diet encouraged. Follow-up in 3 months or sooner with symptoms such as dizziness or lightheadedness or any concerns. Verbalized understanding and agreed with treatment plan. (2) Diabetes: Code(s): E11.9 - Type 2 diabetes mellitus without complications Category: Medical Plan: A1c today 6.5%, within goal of less than 7.0%. Previous A1c was 7.2%. Continue current treatment regimen. Will check A1c in 3 months. Verbalized understanding and agreed with treatment plan. (3) High cholesterol: Code(s): E78.00 - Pure hypercholesterolemia, unspecified Category: Medical Plan: Recent lipid panel level is normal. LDL is 77, within goal of less than 100. Continue current treatment regimen. Will check lipid panel level periodically. Verbalized understanding and agreed with treatment plan. (4) Anxiety and depression: Code(s): F41.9 - Anxiety disorder, unspecified; F32.A - Depression, unspecified Category: Medical Plan: Controlled anxiety and depressive symptoms. PHQ-9 and KAREEN-7 scores are normal. Continue to take escitalopram as prescribed. Routine exercise encouraged. Follow-up with symptoms or concerns. Verbalized understanding and agreed with the treatment plan. Orders: Orders AMB Hemoglobin A1c Today Z13.9 - Encounter for screening, unspecified Medications: New benazepril 20 mg PO DAILY 90 days 90 tabs 1RF Discontinued amlodipine-benazepril 5-20 mg Discontinued Reason: Doctor's Order 1 cap PO DAILY 30 days 30 caps 1RF
[2024-12-02 10:02] VITALS: BP 136/75; PULSE 68; RESP 16; TEMP 36.4; O2SAT 95; BMI 34.1
[2024-12-02 10:29] VITALS: BP 104/64; PULSE 64
--- OUTSIDE RECORDS SUMMARY | 2024-12-02 10:47 | XMS_ITS ---
Author Organization [facility] Address [address] [place] [address] Care Team Providers Care Pattern Carrier Name Role Phone Ibrahima LOG SORTER, Theron Primary Care Provider Unavail able Melanie Sargent Unavailable [phone] Encounters Encounter Location Date Provider Diagnosis [address] [address] 12/02/2024 Melanie Sargent Plan Of Treatment Next Appt Details Provider Name:Melanie harden, 12/09/2024 10:30:00 AM, [address] [place] [address], [address], Progress Notes * Prince REESDOB:[birth year] (69 yo M)Acc No.[id number]:12/02/2024 Progress Notes Patient:?Prince REES Provider:?Melanie Sargent DPM :1955???Age:69 Y???Sex:Male Harshad e:12/02/2024 Address:[address] [place] [address], [facility], [place], [place] Pcp:Theron Alexandra NP Subjective: * Chief Complaints: * ??? * Medical History:? Objective: * Vitals:? Assessment: Plan: * Treatment: * Images: * The named appointment provid er may or may not be the originator of this progress note, and it is not deemed complete until electronically signed by the appointment provider. Sign off status: Pending * Provider:?Melanie Sargent DPM Date:? Generated for Carrie velez/Arun/Ladarius on:?12/02/2024 10:47 AM EST
--- OUTSIDE RECORDS SUMMARY | 2024-12-02 10:48 | XMS_ITS | Clinical Summary ---
Author Organization [facility] Address [address] [place] [address] Care Team Providers Care Director News Name Role Phone IbrahimaFord javier KETAN Primary Care Provider [phone] Allergies No known active allergies Medications Medication Sig Dispensed Refills Start Date End Date Status Atorvastatin Calcium (LIPITOR PO) Take by mouth. Active Dulaglutide (TRULICITY SC) Inject under the skin. Active MELOXICAM PO Take by mouth. Active GABAPENTIN PO Take by mouth. Active METFORMIN HCL PO Take by mouth. Acti ve ASPIRIN 81 PO Take by mouth. Active Social History Tobacco Use Types Packs/Day Years [...] age to complete this topic Care Teams Director News Relationship Specialty Start Date End Date Ford Alexandra NP [address] [place] [address] PCP - General 08/25/24
--- OUTSIDE RECORDS SUMMARY | 2024-12-02 10:48 | XMS_ITS | Clinical Summary ---
Author Organization [facility] Address [address] [place] [address] Care Team Providers Care Online Marketing Manager Name Role Phone Lyla Brar APRN Primary Care Provider [phone] Allergies No known active allergies Medications Medication [...] Advance Directives For more information, please contact: [phone] Latest Code Status on File Code Status [...] following way: discussion with patient. Care Teams Online Marketing Manager Relationship Specialty Start Date End Date Lyla Brar APRN [address] [place] [address] PCP - General Family Medicine 09/22/14
--- OUTSIDE RECORDS SUMMARY | 2024-12-02 10:48 | XMS_ITS ---
Author Organization [facility] Address [address] [place] [address] Care Team Providers Care Associate Pastor Name Role Phone Ibrahima HELP DESK ASSOCIATE, [facility] Primary Care Provider Unavail able Melanie Sargent Unavailable [phone] REASON FOR VISIT rs from 12/02/24 Encounters Encounter Location Date Provider Diagnosis [address] [address] 09/21/2024 Melanie Sargent Plan Of Treatment Next Appt Details Provider Name:Melanie harden, 12/09/2024 10:30:00 AM, [address] [place] [address], [address], Progress Notes * Prince REESDOB:[birth year] (69 yo M)Acc No.[id number]:09/21/2024 Patient:?Prince REES :1955???Age:69 Y???Sex:Male Address:[address] [facility], [address], [place], [address] * true * Date:? Generated for Printi ng/Faxing/eTransmitting on:?12/02/2024 10:47 AM EST
--- OUTSIDE RECORDS SUMMARY | 2024-12-02 10:48 | XMS_ITS | Patient Health Record ---
Author Organization [facility] Address [address] [place] [address] Care Team Providers Care Business Office Associate Name Role Phone Ibrahima ACEVES, [facility] Primary Care Provider Unavail Melanie Gomez Unavailable [phone] Reason For Referral No Information Social History [...] Negative Encounters Encounter Location Date Provider Diagnosis [facility] [address] [place] [address] 09/21/2024 Melanie Sargent Plan Of Treatment Next Appt Details Provider Name:Melanie harden, 12/09/2024 10:30:00 AM, [address] [place], [address], Insurance Providers Payer Name Payer Address Payer Phone Subscriber Number Group Number Insured Name Patient Relationship to Insured Coverage Start Date Coverage End Date [facility] [address] [place] [address] [id number] Prince Rees Self - patient is [...]
--- OUTSIDE RECORDS SUMMARY | 2024-12-02 10:48 | XMS_ITS | Clinical Summary ---
Author Organization [facility] Address [address] [place] [address] Care Team Providers Care Shale Planer Operator Helper Name Role Phone Lyla Brar PLATING AND POINT ASSEMBLY SUPERVISOR Primary Care Provider Surgical History Surgery Date Site/Laterality Comments UPPER GASTROINTESTINAL ENDOSCOPY PROCEDURE:UPPER GASTROINTESTINAL ENDOSCOPY COLONOSCOPY PROCEDURE:COLONOSCOPY TONSILLECTOMY PROCEDURE:TONSILLECTOMY HAND SURGERY PROCEDURE:HAND SURGERY;COMMENT:galo carpal tunnel SHOULDER SURGERY PROCEDURE:SHOULDER SURGERY;COMMENT:rt rotator cuff VEIN SURGERY PROCEDURE:VEIN SURGERY;COMMENT:rt leg vein stripping COLONOSCOPY 12/14/2014 N/A PROCEDURE:COLONOSCOPY;COMMENT :Procedure: COLONOSCOPY SCREEN; Surgeon: Molly Aponte MD; Location: [facility] END[facility]COPY; Service: Gastroenterology; Laterality: N/A; UPPER GASTROINTESTINAL ENDOSCOPY 10/03/2014 N/A PROCEDURE:UPPER GASTROINTESTINAL ENDOSCOPY;COMMENT:Procedure: UPPER ENDOSCOPY-EGD, ABDOMINAL PAIN, GI BLEED; Surgeon: Molly Aponte MD; Location: [facility]; Service: Gastroenterology; Laterality: N/A; Medical [...] age to complete this topic Care Teams Shale Planer Operator Helper Relationship Specialty Start Date End Date Lyla Brar NP [address] [place] [address] PCP - General Family Medicine 09/22/14
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
== END 2024-12-02 10:38 | disposition home or self-care (01) ==
PROVIDERS: PCP Nurse Practitioner Family; Visit Provider Nurse Practitioner Family
DX: I10 Essential (primary) hypertension (principal); E11.9 Type 2 diabetes mellitus without complications; E78.00 Pure hypercholesterolemia, unspecified; F41.9 Anxiety disorder, unspecified; F32.A Depression, unspecified; Z13.9 Encounter for screening, unspecified

== ENCOUNTER → 2024-12-02 09:52 | Outpatient (BNVA) | payer BC, SELFPAY | PROVIDERS: PCP Nurse Practitioner Family; Visit Provider Nurse Practitioner Family | DX: I10 Essential (primary) hypertension (principal); E11.9 Type 2 diabetes mellitus without complications; E78.00 Pure hypercholesterolemia, unspecified; F41.9 Anxiety disorder, unspecified; F32.A Depression, unspecified | CPT/HCPCS: 83036; 96127 ==

== ENCOUNTER 2024-12-14 14:43 | Outpatient (REF) | payer BC, SELFPAY ==
[2024-12-15 11:38] LABS: Influenza A PCR NEGATIVE (Negative); Influenza B PCR NEGATIVE (Negative); Resp Syncy Virus RNA Qual PCR NEGATIVE (Negative); SARS COV2 PCR INHOUSE NEGATIVE (Negative)
--- OUTSIDE RECORDS SUMMARY | 2024-12-15 13:32 | XMS_ITS ---
Author Organization [facility] Address [address] [place] [address] Care Team Providers Care Puppy Trainer Name Role Phone Ibrahima ACEVES, Theron Primary Care Provider Unavail able Melanie Sarg[place] Unavailable [phone] Allergies No Known Allergies REASON FOR VISIT [...] Polyneuropathy due to type 2 diabetes mellitus (756029812) Type 2 diabetes mellitus with diabetic polyneuropathy (E11.42) Active confirmed Problem Polyneuropathy due to diabetes mellitus type I (753952925) Type 1 diabetes mellitus with diabetic polyneuropathy (E10.42) Active confirmed Problem Acquired hammer toe of right foot (8848789343652443 ) Other hammer toe(s) (acquired), right foot (M20.41) Active confirmed Problem Acquired hammer toe of left foot (8119821601271040 ) Other hammer toe(s) (acquired), left foot (M20.42) Active confirmed Vital Signs Height 5ft 10in in 12/09/2024 Weight 232 lbs 12/09/2024 BMI 33.28 kg/m2 12/09/2024 Blood pressure systolic 115 mm Hg 12/10/19 25 Blood pressure diastolic 70 mm Hg 025 Encounters Encounter Location Date Provider Diagnosis [facility] [address] [place] [address] 12/09/2024 Melanie Sargent Type 2 diabetes mellitus [...] Reason: Provider Name:Melanie harden, 03/17/2025 11:00:00 AM, [address] [place] [address], [phone], Procedure Notes * Category Sub-Category Detail [...] use of a nail nipper and/or dremel-type level vial inside grinder, to a more viable healthy nail [...] to maintain effectiveness in symptomatic relief - 93879 Keratoma Treatment Parring or Cutting o f [...] instrumentation by the physician of record - 42701 Progress Notes * Prince REESDOB:[birth year] (69 yo M)Acc No.[id number]:12/09/2024 Progress Notes Patient:?Prince REES Provider:?Melanie Sargent DPM :1955???Age:69 Y???Sex:Male Harshad e:12/09/2024 Address:[address] [place] [phone] Pcp:Theron Alexandra NP Subjective: * Chief Complaints: [...] 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 ?Marital status: . ?Occupation: [employer]. ???Drug/Alcohol:?AUDIT-C (Standard)?Did you have a drink containing [...] use of a nail nipper and/or dremel-type level vial inside grinder, to a more viable healthy nail [...] to maintain effectiveness in symptomatic relief - 23498.?Keratoma Treatment:?Parring or Cutting of Benign Hyperkeratotic Lesion(s)?(-57) [...] instrumentation by the physician of record - 73006.? * Procedure Codes:?95768 DEBRI DE NAIL, 6 OR MORE, Modifiers: XS 05094 TRIM SKIN LESIONS, OVER 4, Modifiers: XS [...] [place] DPM Date:?04/2025 Generated for Carrie velez/Arun/Ladarius on:?12/15/2024 01:32 PM EDT History and Physical Notes * [...]
--- OUTSIDE RECORDS SUMMARY | 2024-12-15 13:32 | XMS_ITS ---
Author Organization [facility] Address [address] [place] [address] Care Team Providers Care Credit Review Analyst Name Role Phone Ibrahima WRIST LINER, Theron Primary Care Provider Unavail able Melanie S[place] Unavailable [phone] Encounters Encounter Location Date Provider Diagnosis [address] [address] 12/02/2024 Melanie S[place]ent Plan Of Treatment Next Appt Details Provider Name:Melanie harden, 03/17/2025 11:00:00 AM, [address] [place] [address], [phone], Progress Notes * Prince REESDOB:[birth year] (69 yo M)Acc No.[id number]:12/02/2024 Progress Notes Patient:?Prince REES Provider:?Melanie S[place] DPM :1955???Age:69 Y???Sex:Male Harshad e:12/02/2024 Address:[address] [place] [address], [facility], [place], [place]-[phone] Pcp:Theron Alexandra NP Subjective: * Chief [...] [place] DPM Date:? Generated for Carrie velez/Arun/Ladarius on:?12/15/2024 01:31 PM EDT
--- OUTSIDE RECORDS SUMMARY | 2024-12-15 13:32 | XMS_ITS | Clinical Summary ---
Author Organization [facility] Address [address] [place] [address] Care Team Providers Care Catholic Priest Name Role Phone IbrahimaFord javier KETAN Primary Care Provider [phone] Allergies No known active allergies Medications Medication [...] age to complete this topic Care Teams Catholic Priest Relationship Specialty Start Date End Date Ford Alexandra NP [address] [place] [address] PCP - General 08/25/24
--- OUTSIDE RECORDS SUMMARY | 2024-12-15 13:32 | XMS_ITS | Clinical Summary ---
Author Organization [facility] Address [address] [place] [address] Care Team Providers Care Sanitary Landfill Supervisor Name Role Phone Lyla Brar DIRECTOR [place] Primary Care Provider [phone] Surgical History Surgery Date Site/Laterality Comments UPPER GASTROINTESTINAL ENDOSCOPY PROCEDURE:UPPER GASTROINTESTINAL ENDOSCOPY COLONOSCOPY PROCEDURE:COLONOSCOPY TONSILLECTOMY PROCEDURE:TONSILLECTOMY HAND SURGERY PROCEDURE:HAND SURGERY;COMMENT:galo carpal tunnel SHOULDER SURGERY PROCEDURE:SHOULDER SURGERY;COMMENT:rt rotator cuff VEIN SURGERY PROCEDURE:VEIN SURGERY;COMMENT:rt leg vein stripping COLONOSCOPY 12/14/2014 N/A PROCEDURE:COLONOSCOPY;COMMENT :Procedure: COLONOSCOPY SCREEN; Surgeon: Molly Aponte MD; Location: [facility]; Service: Gastroenterology; Laterality: N/A; UPPER GASTROINTESTINAL ENDOSCOPY 10/03/2014 N/A PROCEDURE:UPPER GASTROINTESTINAL ENDOSCOPY;COMMENT:Procedure: UPPER ENDOSCOPY-EGD, ABDOMINAL PAIN, GI BLEED; Surgeon: Molly Aponte MD; Location: [facility]; Service: Gastroenterology; Laterality: N/A; [...] age to complete this topic Care Teams Sanitary Landfill Supervisor Relationship Specialty Start Date End Date Lyla Brar NP [address] [place] [phone] PCP - General Family Medicine 09/22/14
--- OUTSIDE RECORDS SUMMARY | 2024-12-15 13:32 | XMS_ITS ---
Author Organization [facility] [place] Address [address] [place] [address] Care Team Providers Care Top Printing Press Operator Name Role Phone Ibrahima RETAIL COSMETICS SALES COUNTER MANAGER, [facility] Primary Care Provider Unavail able Melanie S[place] Unavailable [phone] REASON FOR VISIT rs from 12/02/24 Encounters Encounter Location Date Provider Diagnosis [address] [address] 09/21/2024 Melanie S[place] Plan Of Treatment Next Appt Details Provider Name:Melanie harden, 03/17/2025 11:00:00 AM, [address] [place] [address], [phone], Progress Notes * Prince REESDOB:[birth year] (69 yo M)Acc No.[id number]:09/21/2024 Patient:?Prince REES :1955???Age:69 Y???Sex:Male Address:[address] [facility], [place], [address] * true * Date:? Generated for Printi ng/Faxing/eTransmitting on:?12/15/2024 01:32 PM EDT
--- OUTSIDE RECORDS SUMMARY | 2024-12-15 13:32 | XMS_ITS | Clinical Summary ---
Author Organization [facility] Address [address] [place] [address] Care Team Providers Care Floor Layer Name Role Phone Lyla Brar APRN Primary [...] Advance Directives For more information, please contact: [phone] Latest Code Status on File Code Status [...] following way: discussion with patient. Care Teams Floor Layer Relationship Specialty Start Date End Date Lyla Brar APRN [address] [place] [address] PCP - General Family Medicine 09/22/14
--- OUTSIDE RECORDS SUMMARY | 2024-12-15 13:32 | XMS_ITS | Patient Health Record ---
Author [facility] Address [address] [place] [address] Care Team Providers Care Crepe Sole Scourer Name Role Phone Ibrahima ACEVES, Theron Primary Care Provider Unavail able ArleenSebastien hardenen Unavailable [phone] Allergies No Known Allergies Results Component Value [...] Problem Acquired hammer toe of right foot (9710570469061738 ) Other hammer toe(s) (acquired), right foot (M20.41) Active confirmed Problem Acquired hammer toe of left foot (0557462015980587 ) Other hammer toe(s) (acquired), left foot (M20.42) Active confirmed Problem Polyneuropathy due to diabetes mellitus type I (847740610) Type 1 diabetes mellitus with diabetic polyneuropathy (E10.42) Active confirmed Problem Polyneuropathy due to type 2 diabetes mellitus (566903791) Type 2 diabetes mellitus with diabetic polyneuropathy (E11.42) Active confirmed Vital Signs Blood pressure diastolic 70 mm Hg 12/09/2024 Height 5ft 10in in 12/09/2024 Blood pressure systolic 115 mm Hg 12/09/2024 Weight 232 lbs 12/09/2024 BMI 33.28 kg/m2 12/09/2024 Encounters Encounter Location Date [facility] [address] 12/09/2024 Melanie Sargent Type 2 diabetes mellitus with diabetic polyneuropathy E11.42 ; Other hammer toe(s) (acquired), left foot M20.42 ; Tinea unguium B35.1 and Other hammer toe(s) (acquired), right foot M20.41 [facility] [address] [place] [address] 09/21/2024 Melanie Sargent Assessments Encounter Date Diagnosis [...] Details Provider Name:Melanie harden, 03/17/2025 11:00:00 AM, [address] [place] [address], [address], Insurance Providers Payer Name Payer Address Payer Phone Subscriber Number Group Number Insured Name Patient Relationship to Insured Coverage Start Date Coverage End Date [facility] [address] [place] [address] [id number] Prince Rees Self - patient is [...]
== END 2024-12-14 14:44 | disposition home or self-care (01) ==
LOC: HO.LNP 14:43
PROVIDERS: PCP Nurse Practitioner Family; Visit Provider Physician Assistant
DX: J06.9 Acute upper respiratory infection, unspecified (principal)
CPT/HCPCS: 0241U

== ENCOUNTER 2024-12-14 14:43 | Outpatient (AMB) | payer BC, SELFPAY ==
--- NOTE | 2024-12-14 15:21 | MHC.OFFWIV ---
Intake Vital Signs 12/14/24 15:24 Weight 239 lb 6 oz BP 136/80 Blood Pressure Location Lt brachial Position Sitting Pulse 69 Pulse Source Pulse Oximeter Temp 98.6 F Temp Source Oral Pulse Oximetry (%) 98 Oxygen Delivery Method Room Air Intake Visit Reasons: EP-headaches, sore throat, running nose, cough Intake Note: Patient here for headaches, runny nose, cough and white mucus that started thursday. Patient Tobacco Use Status: Never used Tobacco Allergies No Known Allergies Allergy (Verified 12/14/24 15:24) Do you need a note to return to daycare/school/sports/work: No HPI HPI Comments History of Present Illness Details He presents with cold ymptoms since Thursday +headache, ST Turned to nasal congestion, runny nose + cough and dry without phlegm States aching in neck with stiffness No body aches + fatigue He did not do any OTC He took Alkaseltzer cold He said + sick contacts at work [employer] Medical History (Updated 12/14/24 @ 16:34 by Radha Garcia PA-C) Biceps tendon rupture Varicose veins of right thigh Erectile dysfunction Barretts esophagus Depression Hyperlipidemia Varicose vein of leg Shingles Neuropathy Arthritis Diabetes Cardiac ischemia High cholesterol High blood pressure Surgical History (Updated 08/31/24 @ 13:11 by Lucinda Grant MA) H/O arthroscopy of right knee History of vasectomy S/P trigger finger release H/O lateral meniscus repair of right knee History of carpal tunnel surgery of left wrist History of carpal tunnel surgery of right wrist History of rotator cuff surgery History of tonsillectomy and adenoidectomy Family History (Updated 08/31/24 @ 13:02 by Lucinda Grant MA) Mother High blood pressure High cholesterol Cardiovascular disease Father High blood pressure High cholesterol Prostate cancer Esophagus cancer Social History Housing: Apartment Patient Tobacco Use Status: Never used Tobacco e-Cigarette/Vaping Use: Never Used Second Hand Smoke Exposure: No service: No Current occupational status: employed Current occupation: [employer] Current occupational exposures/hazards: Yes Cognitive needs: No Hearing needs: No Vision needs: Yes Review of Systems Const Denies body aches, Reports fatigue and Denies fever(s) Eyes Denies change in vision ENT Reports nasal congestion Card Denies chest pain and Denies syncope Resp Reports cough GI Denies abdominal pain and Denies vomiting Musc Denies back pain Skin/Breast Denies erythema Neuro Denies syncope Endo Reports fatigue Physical Exam Vital Signs: Last Vital Signs Temp 98.6 F 12/14/24 15:24 Pulse 69 12/14/24 15:24 BP 136/80 12/14/24 15:24 Pulse Ox 98 12/14/24 15:24 Oxygen Delivery Method Room Air 12/14/24 15:24 General: Non-toxic, NAD. Speaking full sentences. Skin: Warm dry throughout Eye: EOMI HENT: Airway patent. Uvula midline. No pharyngeal erythema or edema. 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 Bilateral canals clear. TM non-erythematous, non-bulging. No TM perforation or hemotympanum noted. Respiratory: CTA bilaterally. No wheezes, rales or rhonchi Cardiac: RRR. No murmur MSK: Full ROM extremities. Neurology: Alert. No aphasia or facial droop. Gait without abnormality Psych: Good mood and affect Assessment & Plan Assessment & Plan (1) Upper respiratory infection: Code(s): J06.9 - Acute upper respiratory infection, unspecified Qualifiers: URI type: unspecified URI Qualified Code(s): J06.9 - Acute upper respiratory infection, unspecified Plan: Patient seen and evaluated. Covid/rsv/flu swab obtained Tessalon for cough FLuids/rest F/U with PCP Declined work note Patient gave verbal understanding and had no additional questions or concerns at time of discharge All questions answered Orders: Orders SARS-CoV2/FLU/RSV Today J06.9 - Acute upper respiratory infection, unspecified Medications: New benzonatate 200 mg PO BID-TID PRN 14 caps 0RF cough Coding Level of Care Code Est Pt Level 3 (03690) Diagnoses Upper respiratory tract infection, unspecified type J06.9 URI type: unspecified URI
[2024-12-14 15:24] VITALS: BP 136/80; PULSE 69; TEMP 37; O2SAT 98
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
--- OUTSIDE RECORDS SUMMARY | 2024-12-14 17:20 | XMS_ITS | Clinical Summary ---
Author Organization [facility] Address [address] [place] [address] Care Team Providers Care Data Quality Consultant Name Role Phone Lyla Brar MECHANICAL ENGINEERING SPECIALIST Primary Care Provider [phone] Surgical History Surgery Date Site/Laterality Comments UPPER GASTROINTESTINAL ENDOSCOPY PROCEDURE:UPPER GASTROINTESTINAL ENDOSCOPY COLONOSCOPY PROCEDURE:COLONOSCOPY TONSILLECTOMY PROCEDURE:TONSILLECTOMY HAND SURGERY PROCEDURE:HAND SURGERY;COMMENT:galo carpal tunnel SHOULDER SURGERY PROCEDURE:SHOULDER SURGERY;COMMENT:rt rotator cuff VEIN SURGERY PROCEDURE:VEIN SURGERY;COMMENT:rt leg vein stripping COLONOSCOPY 12/14/2014 N/A PROCEDURE:COLONOSCOPY;COMMENT :Procedure: COLONOSCOPY SCREEN; Surgeon: Molly Aponte MD; Location: [facility] END[facility]; Service: Gastroenterology; Laterality: N/A; UPPER GASTROINTESTINAL ENDOSCOPY 10/03/2014 N/A PROCEDURE:UPPER GASTROINTESTINAL ENDOSCOPY;COMMENT:Procedure: UPPER ENDOSCOPY-EGD, ABDOMINAL PAIN, GI BLEED; Surgeon: Molly Aponte MD; Location: [facility]; Service: Gastroenterology; Laterality: N/A; Medical History [...] age to complete this topic Care Teams Data Quality Consultant Relationship Specialty Start Date End Date Lyla Brar NP [address] [place] [address] PCP - General Family Medicine 09/22/14
--- OUTSIDE RECORDS SUMMARY | 2024-12-14 17:20 | XMS_ITS ---
Author Organization [facility] Address [address] [place] [address] Care Team Providers Care Public Relations Counselor Name Role Phone Ibrahima EXCELSIOR MACHINE FEEDER, Theron Primary Care Provider Unavail able Melanie Sargent Unavailable [phone] Encounters Encounter Location Date Provider Diagnosis [address] [address] 12/02/2024 Melanie Sargent Plan Of Treatment Next Appt Details Provider Name:Melanie harden, 03/17/2025 11:00:00 AM, [address] [place] [address], [address], Progress Notes * Prince REESDOB:[birth year] (69 yo M)Acc No.[id number]:12/02/2024 Progress Notes Patient:?Prince REES Provider:?Melanie Sargent DPM :1955???Age:69 Y???Sex:Male Harshad e:12/02/2024 Address:[address] [place] [address], [facility], [place], [place]-[address] Pcp:Theron Alexandra NP Subjective: * Chief [...] Sargent DPM Date:? Generated for Carrie velez/Arun/Ladarius on:?12/14/2024 05:20 PM EDT
--- OUTSIDE RECORDS SUMMARY | 2024-12-14 17:20 | XMS_ITS ---
Author Organization [facility]el Eaton Address [address] [place] [address] Care Team Providers Care Pipe Fitter Helper Name Role Phone Ibrahima WORD PROCESSING MACHINE OPERATOR, [facility] Primary Care Provider Unavail able Melanie Sargent Unavailable [phone] REASON FOR VISIT rs from 12/02/24 Encounters Encounter Location Date Provider Diagnosis [address] [address] 09/21/2024 Melanie Sargent Plan Of Treatment Next Appt Details Provider Name:Melanie harden, 03/17/2025 11:00:00 AM, [address] [place] [address], [phone], Progress Notes * Prince REESDOB:[birth year] (69 yo M)Acc No.[id number]:09/21/2024 Patient:?Prince REES :1955???Age:69 Y???Sex:Male Address:[address] [facility], [place], [address] * true * Date:? Generated for Printi ng/Faxing/eTransmitting on:?12/14/2024 05:20 PM EDT
--- OUTSIDE RECORDS SUMMARY | 2024-12-14 17:21 | XMS_ITS | Clinical Summary ---
Author Organization [facility] Address [address] [place] [address] Care Team Providers Care First Aid Teacher Name Role Phone IbrahimaFord javier KETAN Primary Care Provider [phone] Allergies No known active allergies Medications Medication [...] age to complete this topic Care Teams First Aid Teacher Relationship Specialty Start Date End Date Ford Alexandra NP [address] [place] [address] PCP - General 08/25/24
--- OUTSIDE RECORDS SUMMARY | 2024-12-14 17:21 | XMS_ITS ---
Author Organization [facility] [place] Address [address] [place] [address] Care Team Providers Care Real Estate Loan Officer Name Role Phone Ibrahima ACEVES, Theron Primary Care Provider Unavail able Melanie Sargent Unavailable [phone] Allergies No Known Allergies REASON FOR VISIT At Risk Footcare, Toe Irritation Medications Medication SIG (Take, Route, Frequency, Duration) Notes Start Date End Date Status Trulicity 1.5 MG/0.5ML as directed Subcutaneous Active amLODIPine Benzoate Not-Taking Benazepril HCl 20 MG Oral for 90 Days Active Atorvastatin Calcium 80 MG 1 tablet Orally Once a day Active Jardiance 25 MG 1 tablet Orally Once a day Active Empagliflozin 10 MG 1 tablet Orally Once a day Active Gabapentin 600 MG 1 tablet Orally Once a day Active Meloxicam 15 MG 1 tablet Orally Once a day Active metFORMIN HCl 500 MG 1 tablet with a justine l Orally Once a day Active Nitroglycerin 0.4 MG 1 tablet under the tongue and allow to dissolve as needed. Take every 5 minutes up to 3 times if chest pain persists Sublingual Three times a day Active Extra Depth Orthopedic Shoes (1 Pair) with Customized Heat Molded Multidensity Innersoles (3 Pair) as directed Dx: NIDDM/Polyneuropathy (E11.42), Hammertoe Foot Deformity (M20.41,M20.42), Preulcerative Skin Lesion(s) (L85.1 12/09/2024 Active Social History Tobacco Use: Social History Observation [...] nk containing alcohol in the past year? 2 to 3 times a week (3 points) How many drinks did you have on a typical day when you were drinking in the past year? 1 or 2 drinks (0 point) How often did you have six o r more drinks on one occasion in the past year? Never (0 point) Points 3 Interpretation Negative Problems Problem Type SNOMED Code ICD Code Onset Dates Problem Status W/U Status Risk Notes Problem Polyneuropathy due to type 2 diabetes mellitus (373586222) Type 2 diabetes mellitus with diabetic polyneuropathy (E11.42) Active confirmed Problem Polyneuropathy due to diabetes mellitus type I (289452450) Type 1 diabetes mellitus with diabetic polyneuropathy (E10.42) Active confirmed Problem Acquired hammer toe of right foot (7978816595894736 ) Other hammer toe(s) (acquired), right foot (M20.41) Active confirmed Problem Acquired hammer toe of left foot (2401460016643120 ) Other hammer toe(s) (acquired), left foot (M20.42) Active confirmed Vital Signs Height 5ft 10in in 12/09/2024 Weight 232 lbs 12/09/2024 BMI 33.28 kg/m2 12/09/2024 Blood pressure systolic 115 mm Hg 12/10/19 25 Blood pressure diastolic 70 mm Hg 025 Encounters Encounter Location Date Provider Diagnosis [facility] [place] [address] [place] [address] 12/09/2024 Melanie Sargent Type 2 diabetes mellitus with diabetic polyneuropathy E11.42 ; Other hammer toe(s) (acquired), left foot M20.42 ; Tinea unguium B35.1 and Other hammer toe(s) (acquired), right foot M20.41 Assessments Encounter Date Diagnosis (ICD Code) Assessment Notes Treatment Notes Treatment Clinical Notes Section Notes 12/09/2024 Type 2 diabetes mellitus with diabetic polyneuropathy (ICD-10 - E11.42) 12/09/2024 Other hammer toe(s) (acquired), left foot (ICD-10 - M20.42) 12/09/2024 Tinea unguium (ICD-10 - B35.1) 12/09/2024 Other hammer toe(s) (acquired), right foot (ICD-10 - M20.41) Patient Educated with: DIABETIC FOOT CARE INSTRUCTIONS. pdf (DIABETIC FOOT CARE INSTRUCTIONS. pdf) Plan Of Treatment Medication Medication Name Sig Start Date Stop Date Notes Extra Depth Orthopedic Shoes (1 Pair) with Customized Heat Molded Multidensity Innersoles (3 Pair) as directed Dx: NIDDM/Polyneuropathy (E11.42), Hammertoe Foot Deformity (M20.41,M20.42), Preulcerative Skin Lesion(s) (L85.1 12/09/2024 Treatment Notes Assessment Notes Other hammer toe(s) (acquired), right fo ot Patient Educated with: DIABETIC FOOT CARE INSTRUCTIONS.pdf (DIABETIC FOOT CARE INSTRUCTIONS.pdf) Next Appt Details Follow Up: 3 Months, Reason: Provider Name:Melanie harden, 03/17/2025 11:00:00 AM, [address] [place] [address], [phone], Procedure Notes * Category Sub-Category Detail Notes Debride Nail 6-10 Nail debridement Due to the cl inical pathology outlined in the exam findings, performance of this nail treatment is medically necessary as its management by an unskilled/untrained nonprofessional would put this patients foot and overall health at risk. Therefore, debridement to affected nail(s), as described in exam ( TA, T1, T2, T3, T4, T5, T6, T7, T8, T9, ), was performed exclusively by the physician of record to reduce/remove overall nail length, girth, thickness, subungual debris, and necrotic tissue, by manual and/or electrical means through the use of a nail nipper and/or dremel-type lens shaper grinder, to a more viable healthy nail plate or bed tissue 6-10 nails in total. Silver nitrate was used for any petechial bleeding as necessary. Definitive antifungal treatment options, both pharmaceutical and surgical, have been reviewed and discussed with the patient. The patient solely prefers the use of intermittent/as needed professional debridement services for their nail condition and understands the need for additional periodic treatments to maintain effectiveness in symptomatic relief - 52502 Keratoma Treatment Parring or Cutting o f Benign Hyperkeratotic Lesion(s) (-57) More than 4 Lesions - Due to the at risk nature of the patients medical condition as documented in the exam findings, performance of this keratoderma treatment is medically necessary as its management by an unskilled/untrained nonprofessional would put this patients foot and overall health at risk. Therefore, the benign hyperkeratotic lesions, ( 6 ) in total, locations as stated and described in the exam ( TA, T5, T9, SUB MTH (s), 1, B/L, 5, Left; ), were pared, and/or cut utilizing a sterile 15 blade, tissue nippers, and/or power dremel instrumentation by the physician of record - 96631 Progress Notes * Prince REESDOB:[birth year] (69 yo M)Acc No.[id number]:12/09/2024 Progress Notes Patient:?Prince REES Provider:?Melanie Sargent DPM :1955???Age:69 Y???Sex:Male Harshad e:12/09/2024 Address:[address] [place] [id number] Pcp:Theron Alexandra NP Subjective: * Chief Complaints: * ???At Risk FootcareToe Irrit ation * HPI: ???At Risk footcare:?Pt States Last PCP Visit:?Date?12/02/2024 ???Toe pain:?Location:?B/L feet.?Duration:?several years.?Course:?worse.?Aggravated by:?shoes, any pressure.?Treatments:?change in shoes.? * ROS:?General/Constitutional:?Nausea?denies.?Vomiting?denies.?Hunger Thirst?denies.?Loss appetite?denies.?Chills?denies.?Fatigue?denies.?Fever?denies.?Night Sweats?denies.?Unexplained weight loss?denies.?Unexplained weight gain?denies.?HEENTM:?Dentures?denies.?Dizziness?denies.?Glasses/contacts?admits.?Retinopathy?den ies.?Blurred/double vision?denies.?TMJ?denies.?Discharge/drainage?denies.?Implants?denies.?Sore throat?denies.?Dental implants?denies.?Hard of hearing ?denies.?Difficulty chewing/swallowing/speaking?denies.?Nose bleeds?denies.?Sore mouth?denies.?Respiratory:?On O xygen?denies.?Pneumonia/pleurisy?denies.?Bronchitis?denies.?Emphysema?denies.?Co ughing?denies.?Cough blood?denies.?Shortness of breath?denies.?Wheezing?denies.?Cardiovascular:?Pacemaker?denies.?MVP?denies.?WPW?denies.?CHF?denies.?Heart attack?denies.?Septal defect?denies.?Rapid beat?denies.?Chest pain ?denies.?Atrial Fib.?denies.?Murmur/Palpitations?denies.?Gastrointestinal:?Hemorrhoids?denies.?Stomach/Abdominal pain?denies.?Dark blood stool?denies.?Irritable bowel ?denies.?Constipation?denies.?Diarrhea?denies.?Hematology:?Swelling?denies.?Clots?denies.?Varicose Veins?denies.?Bruising?denies.?Bleeding problem?denies.?Genitourinary:?Blood urine?denies.?Frequent/Painfu/urination/bladder control?denies.?Kidney stones?denies.?Infection (UTI)?denies.?Nephropathy?denies.?sex trans dis (STD)?denies.?Prostate?denies.?Musculoskeletal:?Hammertoes?denies.?Bunions?denies.?Back Pain?denies.?Muscle Cramps/ Resting?denies.?Muscle cramps / walking?denies.?Generalized aches and pains?denies.?Weakness?denies.?Integ.:?[place]?denies.?Scars?denies.?Corns/calluses?denies.?Ingrown nails?denies.?Painful nails?denies.?Open Sores?admits.?Rashes?denies.?Neurologic:?Difficulty sleeping?denies.?Brain disorder?denies.?Numbness?denies.?Balance t rouble?denies.?Confusion?denies.?Fainting/blackouts?denies.?Tingling?denies.?Morales mors?denies.? * Medical History:? * Surgical History:?tonsillect shane and adenoidectomy 1962carpal tunnel surgery l/r 1988/1997/2012rotator cuff tear repair 1995vericose vein removed [place] [place]tm left atenal mewiscus repair right 2014trigger finger release 2021 * Hospitalization/Major Diagno stic Procedure:?Denies Past Hospitalization * Family History:?Mother: dece ased, diagnosed with Unspecified essential hypertension, Unspecified heart disease.?Father: , diagnosed with Other malignant neoplasm of unspecified site, Family history of arthritis.? * Social History:?Tobacco Use:?Tobacco use other than smoking?Are you an other tobacco user??No ?Tobacco Control (Standard)?Tobacco use:?Nonsmoker ?Additional Findings: Tobacco non-user?Current nonsmoker ???Drugs/Alcohol:?Drugs?Have you used drugs other than those for medical reasons in the past 12 months??No ???Miscellaneous:?Caffeine: yes, 1-2 cups per day. ?Exercise: yes, walking, photography,wood 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 ?Marital status: . ?Occupation: [employer]. ???Drug/Alcohol:?AUDIT-C (Standard)?Did you have a drink containing alcohol in the past year??Yes ?How often did you have a drink containing alcohol in the past year??2 to 3 times a week (3 points) ?How many drinks did you have on a typical day when you were drinking in the past year??1 or 2 drinks (0 point) ?How often did you have six or more drinks on one occasion in the past year??Never (0 point) ?Points?3 ?Interpretation?Negative * Medications:?TakingNitroglyc keesha 0.4 MG Tablet Sublingual 1 tablet under the tongue and allow to dissolve as needed. Take every 5 minutes up to 3 times if chest pain persists Sublingual Three times a day metFORMIN HCl 500 MG Tablet 1 tablet with a meal Orally Once a day Meloxicam 15 MG Tablet 1 tablet Orally Once a day Gabapentin 600 MG Tablet 1 tablet Orally Once a day Empagliflozin 10 MG Tablet 1 tablet Orally Once a day Trulicity 1.5 MG/0.5ML Solution Auto-injector as directed Subcutaneous Jardiance 25 MG Tablet 1 tablet Orally Once a day Atorvastatin Calcium 80 MG Tablet 1 tablet Orally Once a day Benazepril HCl 20 MG Tablet Oral Taking Nitroglycerin 0.4 MG Tablet Sublingual 1 tablet under the tongue and allow to dissolve as needed. Take every 5 minutes up to 3 times if chest pain persists Sublingual Three times a day Taking metFORMIN HCl 500 MG Tablet 1 tablet with a meal Orally Once a day Taking Meloxicam 15 MG Tablet 1 tablet Orally Once a day Taking Gabapentin 600 MG Tablet 1 tablet Orally Once a day Taking Empagliflozin 10 MG Tablet 1 tablet Orally Once a day Taking Trulicity 1.5 MG/0.5ML Solution Auto-injector as directed Subcutaneous Taking Jardiance 25 MG Tablet 1 tablet Orally Once a day Taking Atorvastatin Calcium 80 MG Tablet 1 tablet Orally Once a day Taking Benazepril HCl 20 MG Tablet Oral Not-Taking/PRNamLODIPine Benzoate Medication List reviewed and reconciled with the patientNot-Taking/PRN amLODIPine Benzoate Medication List reviewed and reconciled with the patient * Allergies:?N.K.D.A.yes[Aller gies Verified] Objective: * Vitals:?Ht: 5ft 10in, Wt:232 , BMI:33.28, Shoe size: 10.5, BP:115/70mm Hg, BS: 113, Ht-cm: 177.8 cm, Wt-k.23 kg. * ???Past Orders: ???Lab:HEMOGLOBIN A1C (GLYCO HEMOGLOBIN) (Order Date - 12/02/2024) (Collection Date & Time - 12/09/2024 10:32 AM) ? Value Reference Range ?HEMOGLOBIN A1C % (HH) 6.5 * Examination: ???Ophthalmology Referral: ?DIABETES EYE EXAM?Procedure Performed:?Yes ?Date of Exam Performed?04/04/2024 ?Diabetic Retinopathy Screening:?Yes ?Findings of Diabetic Eye Exam:?no retinopathy?Neurological: ?SENSORY:? Neurological exam demonstrates, reduced light touch sensation, reduced sharp/dull pin prick discrimination , B/L, 5.07 monofilament test performed at plantar aspects of 5 varied sites per foot shows sensation, reduced , B/L.?Nails: ?NAILS are:?Elongated, overgrown, dystrophic, lytic, greater than 3mm thick, discolored and friable with crumbly malodorous subungual debris, TA, T1, T2, T3, T4, T5, T6, T7, T8, T9.?Dermatologic: ?SKIN FINDINGS:?Skin exam reveals Keratotic lesion(s) located at, Medial plantar, TA, T5, T9, SUB MTH (s), 1, B/L, 5, Left; Abrasion with healing scab dorsal 5th toe and mpj Left.?Vascular: ?DP PULSES (B):?3/4, B/L.?PT PULSES (B):?3/4, B/L.?CAPILLARY FILL TIME:?immediate, all digits, B/L.?TROPHIC CONDITION-TEXTURE/ELASTICITY/TURGOR/HAIR GROWTH (B):?normal, B/L.?TEMPERTURE GRADIENT (C):?normal, warm to cool, proximal to distal, B/L, B/L.?PIGMENTATION:?normal, B/L.?Orthopedic: ?MUSCLE STRENGTH:?5/5 all groups in a symmetrical fashion, B/L.?DIGITAL DEFORMITIES:?Digital contracture, PIPJ, 2-5 B/L, incompl-reducible to push-up test, no over, nor underlapping,?there is?evidence of shoe producing skin irritation.?FOOTWEAR:?worn, non-supportive, shoe gear properties exacerbate patient's foot/toe deformity.?General Examination: ?GENERAL APPEARANCE:?Reveals a pleasant, alert, well nourished, well- developed, well hydrated individual, who demonstrates proper attention to hygiene/body habitus, and is in no acute distress, Pt serves as own historian for office visit today.?ORIENTED:?person, place, and time.?FOOT EXAM:?Lower Extremity Neurological Exam performed:?Yes Date ?Visual exam of foot performed:?Yes ?Date?12/09/2024 ?Footwear Evaluation?Footwear Evaluation performed:?Yes??? Assessment: * Assessment: 1.?Other hammer toe(s) (acqu ired), left foot - M20.42 (Primary)???Specify :Chronic problem, Worse (4),Rx Management (4)???2.?Type 2 diabetes mellitus with diabetic polyneuropathy - E11.42???3.?Tinea unguium - B35.1???4.?Other hammer toe(s) (acquired), right foot - M20.41???Specify :Chronic problem, Worse (4),Rx Management (4)??? Plan: * Treatment: * Procedures:?Debride Nail 6-10:?Nail debridement?Due to the clinical pathology outlined in the exam findings, performance of this nail treatment is medically necessary as its management by an unskilled/untrained nonprofessional would put this patients foot and overall health at risk. Therefore, debridement to affected nail(s), as described in exam ( TA, T1, T2, T3, T4, T5, T6, T7, T8, T9, ), was performed exclusively by the physician of record to reduce/remove overall nail length, girth, thickness, subungual debris, and necrotic tissue, by manual and/or electrical means through the use of a nail nipper and/or dremel-type lens shaper grinder, to a more viable healthy nail plate or bed tissue 6- 10 nails in total. Silver nitrate was used for any petechial bleeding as necessary. Definitive antifungal treatment options, both pharmaceutical and surgical, have been reviewed and discussed with the patient. The patient solely prefers the use of intermittent/as needed professional debridement services for their nail condition and understands the need for additional periodic treatments to maintain effectiveness in symptomatic relief - 01992.?Keratoma Treatment:?Parring or Cutting of Benign Hyperkeratotic Lesion(s)?(-57) More than 4 Lesions - Due to the at risk nature of the patients medical condition as documented in the exam findings, performance of this keratoderma treatment is medically necessary as its management by an unskilled/untrained nonprofessional would put this patients foot and overall health at risk. Therefore, the benign hyperkeratotic lesions, ( 6 ) in total, locations as stated and described in the exam (?TA,?T5,?T9,?SUB MTH (s),?1,?B/L,?5,?Left;?), were pared, and/or cut utilizing a sterile 15 blade, tissue nippers, and/or power dremel instrumentation by the physician of record - 22470.? * Procedure Codes:?60918 DEBRI DE NAIL, 6 OR MORE, Modifiers: XS 58110 TRIM SKIN LESIONS, OVER 4, Modifiers: XS * Preventive Medicine:? ??Counseling:?Discussion:?-04: Office or other outpatient visit for the evaluation and management of a new patient, which required a medically appropriate history and/or examination and MODERATE level of DECISION MAKING for: 1 OR MORE CHRONIC PROBLEM(S) THATS WORSENING, 2 STABLE CHRONIC PROBLEMS, A NEWLY DIAGNOSED PROBLEM WITH UNCERTAIN PROGNOSIS, AN ACUTE COMPLICATED INJURY WITH MULTIPLE TREATMENT OPTIONS, OR AN ACUTE PROBLEM WITH ACCOMPANYING SYSTEMIC SYMPTOMS, THAT POSE(S) A MODERATE RISK OF MORBIDITY. THIS CONDITION MAY ALSO INCLUDE RX DRUG MANAGEMENT, OR A DECISON FOR MINOR SURGERY. The visit on the day of the encounter encompassed interpreting the data and educating the patient as to the nature of their condition, treatment options available according to their individual PMH, meds, allergies, and overall health/living conditions, as well as any potential risks or complications that may occur from a failure to adhere to, and participate in, the recommended course of therapy. The discussion included a complete verbal, and/or written explanation of the examination results, any x-rays taken, the proposed diagnosis, and outline of the treatment plan. A schedule for future care needs was also explained. The patient verbalized an understanding of the instructions at this time and agreed to be an active participant in their treatment. If the patient should think of any questions or concerns after the visit, I have encouraged the patient to call the office.?Digital Surgery:?Digital surgery was discussed with the patient, We elected to try conservative treatment at the present time, due to the patients medical history and increased asssociated post-operative risks.?Digital Treatment:?HT- I explained to the patient the possible etiologies of Hammertoes, including genetics/foot type/shoegear/activity level/exercise routine and the risks/benefits of all the different treatment options for their pain including: No treatment at all, Rest, Ice, New/supportive/wider/deeper Shoegear, Digital Padding/Strapping/Taping/Bracing/Gel protective sleeves, Foot/Ankle AFO Bracing, Stretching exercises, Deep Tissue Massage, Arch support/shoe inserts with splay metatarsal padding, and Custom orthoses. I insisted that any digital devices be removed daily and not worn overnight for safety. The patient is to carefully examine the toes daily for any skin irritation while using any splinting or padding device. The advantages and disadvantages of each option were discussed and the patients questions re: shoegear, padding, custom vs prefabricated inserts, activity level, and consistency in home treatment regimens for optimal success were answered to their verbally confirmed satisfaction.?Shoe Gear Counseling:?SHOE Rx - The patient was counseled in great detail on their muscoloskeletal foot and toe deformities which coincided with the dermatological presentations visualized on exam. We discussed how their deformities put the integrity of their feet at risk for potential pedal complications which makes the accomidative diabetic shoes and cutomizable inserts medically necessary. We discussed the different shoe and insert treatment types and options, as well as the important advantages for adhering to regularly wearing these accomidative devices daily. The patient was made aware of the fact that a failure to abide by these recommedations may be deleterious to their foot health as they are able to prevent many pedal complications such as skin irritation, skin ulceration, infection, and even loss of toe/foot/leg/or life. Time was also spent with the patient dispensing and discussing proper diabetic footcare techniques including daily skin moisturization, daily foot inspection for any interruption in skin integrity including open lesions, or sign of infection such as redness/malodor/drainage/swelling. Also discussed and recommended were procedures regarding daily shoe inspection for the presence of internal foreign bodies as well as any visualized irregular shoe or insert wear. Patient questions re: shoes, inserts, and self foot inspections were answered to their satisfaction as the patient verbally confirmed a full understanding of the above information. A Rx for Extra Depth Orthopedic Shoes with 3 pair of custom heat-molded inserts was dispensed.? ??Screening/Special Tests:?Fall Risk?Screening:?No falls in the past year ?FALLS: Screening for Future Fall Risk?Have you had any falls with injury in the past year??No * Follow Up:?3 Months * Images: * Sign off status: Completed true * Provider:?Melanie Sargent DPM Date:?04/2025 Generated for Carrie velez/Arun/Ladarius on:?12/14/2024 05:20 PM EDT History and Physical Notes * HPI (History of Present Illness) Category Sub-Category Detail Notes Category Not es Toe pain Location: B/L feet Duration: several years Course: worse Aggravated by: shoes, any pressure Treatments: change in shoes At Risk footcare Pt States Last PCP Visit: Date: Examination Category Sub-Category Detail Notes Category Not es Neurological SENSORY: Neurological exa m demonstrates, reduced light touch sensation, reduced sharp/dull pin prick discrimination , B/L, 5.07 monofilament test performed at plantar aspects of 5 varied sites per foot shows sensation, reduced , B/L Dermatologic SKIN FINDINGS: Skin exam reveal s Keratotic lesion(s) located at, Medial plantar, TA, T5, T9, SUB MTH (s), 1, B/L, 5, Left; Abrasion with healing scab dorsal 5th toe and mpj Left Orthopedic FOOTWEAR: worn, non-suppor tive, shoe gear properties exacerbate patient's foot/toe deformity DIGITAL DEFORMITIES: Digital contracture , PIPJ, 2-5 B/L, incompl-reducible to push-up test, no over, nor underlapping, there is evidence of shoe producing skin irritation MUSCLE STRENGTH: 5/5 all groups in a symmetrical fashion, B/L General Examination GENERAL APPEARANCE: Reveals a pleasant, alert, well nourished, well-developed, well hydrated individual, who demonstrates proper attention to hygiene/body habitus, and is in no acute distress, Pt serves as own historian for office visit today FOOT EXAM: Lower Extremity Neurological Exa m performed:: Yes Date Visual exam of foot performed:: Yes Date: 12/09/2024 ORIENTED: person, place, and t moy Footwear Evaluation Footwear Evaluation performe d:: Yes Ophthalmology Referral DIABETES EYE EXAM Procedure Perform ed:: Yes ?Date of Exam Performed: 04/04/2024 Diabetic Retinopathy Screening:: Yes Findings of Diabetic Eye Exam:: no retin opathy Vascular DP PULSES (B): 3/4, B/L PT PULSES (B): 3/4, B/L CAPILLARY FILL TIME: immediate, all digi ts, B/L TEMPERTURE GRADIENT (C): normal, warm to cool, proximal to distal, B/L, B/L TROPHIC CONDITION-TEXTURE/ELASTICITY/TURGOR/HAIR GROWTH (B): normal, B/L PIGMENTATION: normal, B/L Nails NAILS are: Elongated, overg rown, dystrophic, lytic, greater than 3mm thick, discolored and friable with crumbly malodorous subungual debris, TA, T1, T2, T3, T4, T5, T6, T7, T8, T9
--- OUTSIDE RECORDS SUMMARY | 2024-12-14 17:21 | XMS_ITS | Clinical Summary ---
Author Organization [facility] Address [address] [place] [address] Care Team Providers Care Cyber Incident Responder Name Role Phone Lyla Brar APRN Primary Care Provider Allergies No known active allergies Medications Medication [...] Advance Directives For more information, please contact: [phone] Latest Code Status on File Code Status [...] following way: discussion with patient. Care Teams Cyber Incident Responder Relationship Specialty Start Date End Date Lyla Brar APRN [address] [place] [address] PCP - General Family Medicine 09/22/14
--- OUTSIDE RECORDS SUMMARY | 2024-12-14 17:21 | XMS_ITS | Patient Health Record ---
Author Organization [facility] Address [address] [place] [address] Care Team Providers Care Environmental Maintenance Worker Name Role Phone Ibrahima ACEVES, Theron Primary Care Provider Unavail able ArleenSebastien hardenen Unavailable [phone] Allergies No Known Allergies Results Component Value Reference Range Notes HEMOGLOBIN A1C (GLYCOHEMOGLO BIN) Reviewed date:12/09/2024 10:33:06 AM Interpretation: Performing Lab: Notes/Report: HEMOGLOBIN A1C % (HH) 6.5 Reason For Referral No Information Medications Medication SIG (Take, Route, Frequency, Duration) Notes Start Date End Date Status Trulicity 1.5 MG/0.5ML as directed Subcutaneous Active Empagliflozin 10 MG 1 tablet Orally Once a day Active Extra Depth Orthopedic Shoes (1 Pair) with Customized Heat Molded Multidensity Innersoles (3 Pair) as directed Dx: NIDDM/Polyneuropathy (E11.42), Hammertoe Foot Deformity (M20.41,M20.42), Preulcerative Skin Lesion(s) (L85.1 12/09/2024 Active Gabapentin 600 MG 1 tablet Orally [...] persists Sublingual Three times a day Active amLODIPine Benzoate Not-Taking Benazepril HCl 20 MG Oral for 90 Days Active Atorvastatin Calcium 80 MG 1 tablet Orally Once a day Active Jardiance 25 MG 1 tablet Orally Once a day Active Social History Tobacco Use: Social History [...] Problem Status W/U Status Risk Notes Problem Acquired hammer toe of right foot (0591523366994104 ) Other hammer toe(s) (acquired), right foot (M20.41) Active confirmed Problem Acquired hammer toe of left foot (4842168815049120 ) Other hammer toe(s) (acquired), left foot (M20.42) Active confirmed Problem Polyneuropathy due to diabetes mellitus type I (973414823) Type 1 diabetes mellitus with diabetic polyneuropathy (E10.42) Active confirmed Problem Polyneuropathy due to type 2 diabetes mellitus (670657400) Type 2 diabetes mellitus with diabetic polyneuropathy (E11.42) Active confirmed Vital Signs Blood pressure diastolic 70 mm Hg 12/09/2024 Height 5ft 10in in 12/09/2024 Blood pressure systolic 115 mm Hg 12/09/2024 Weight 232 lbs 12/09/2024 BMI 33.28 kg/m2 12/09/2024 Encounters Encounter Location Date [facility] [address] 12/09/2024 Melanie Sargent Type 2 diabetes mellitus with diabetic polyneuropathy E11.42 ; Other hammer toe(s) (acquired), left foot M20.42 ; Tinea unguium B35.1 and Other hammer toe(s) (acquired), right foot M20.41 [facility] [address] [place] [address] 09/21/2024 Melanie S[place]ent Assessments Encounter Date Diagnosis (ICD Code) Assessment Notes Treatment Notes Treatment Clinical Notes Section Notes 12/09/2024 Other hammer toe(s) (acquired), left foot (ICD-10 - M20.42) 12/09/2024 Type 2 diabetes mellitus with diabetic polyneuropathy (ICD-10 - E11.42) 12/09/2024 Tinea unguium (ICD-10 - B35.1) 12/09/2024 Other hammer toe(s) (acquired), right foot (ICD-10 - M20.41) Patient Educated with: DIABETIC FOOT CARE INSTRUCTIONS. pdf (DIABETIC FOOT CARE INSTRUCTIONS. pdf) Plan Of Treatment Next Appt Details Provider Name:Melanie harden, 03/17/2025 11:00:00 AM, [address] [place] [address], [address], Insurance Providers Payer Name Payer Address Payer Phone Subscriber Number Group Number Insured Name Patient Relationship to Insured Coverage Start Date Coverage End Date [facility] [address] [place] [address] [id number] 0M Prince Rees Self - patient is [...] tmc left 2020 latenal mewiscus repair right 2015 trigger finger release 2021
== END 2024-12-14 16:26 | disposition home or self-care (01) ==
PROVIDERS: PCP Nurse Practitioner Family; Visit Provider Physician Assistant
DX: J06.9 Acute upper respiratory infection, unspecified (principal)

== ENCOUNTER 2025-01-12 08:18 | Outpatient (AMB) | payer BC, SELFPAY ==
--- NOTE | 2025-01-12 08:24 | MHC.OFFVIS ---
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/ Chronic ischemic heart disease/ Ibrahima Key Cutter Required: No Accompanied by: Self / Same As Patient Allergies No Known Allergies Allergy (Verified 12/14/24 15:24) Medication List - Last Reconciled 01/12/25 by Gamaliel Parish MD atorvastatin 80 mg PO BEDTIME 90 days benazepril 20 mg PO DAILY 90 days dulaglutide (Trulicity) 1.5 mg (0.5 mL) subcut QWEEK empagliflozin (Jardiance) 25 mg PO QAM escitalopram oxalate 10 mg PO DAILY 90 days gabapentin 600 mg PO BID meloxicam 15 mg PO DAILY metformin 500 mg PO DAILY nitroglycerin 0.4 mg sublingual Q5M PRN HPI Comments Details: Patient transferring care from [place]. Prince is a 69-year-old male presenting with shortness of breath. He reports that his symptoms have manifested more clearly over the last three to four months, with exertional activities such as walking or climbing being particularly triggering. He did not experience concurrent chest discomfort like heaviness or pressure often seen with typical angina episodes. Previously, in 2018, the patient underwent a stress test in [place] due to episodes of mild chest discomfort during physical activity; the test results pointed towards ischemia, but there was no immediate intervention beyond prescribing nitroglycerin for use as needed. In terms of past cardiovascular interventions, the patient has not undergone cardiac catheterization or similar procedures. His hypertension treatment included amlodipine, recently ceased due to low blood pressure episodes, with blood pressure readings now stabilizing after discontinuation. Recent checks reveal morning hypertension, with recorded values in 140s upon waking, which tends to normalize later in the day post-medication. Additionally, the patient manages diabetes mellitus and hypercholesterolemia, increasing the risk for cardiac pathology. A recent ECG reflects changes from previous analyses, suggesting potential cardiac alterations warranting further investigation. [facility] Medical History (Updated 01/12/25 @ 08:43 by Gamaliel Parish MD) Biceps tendon rupture Varicose veins of right thigh Erectile dysfunction Barretts esophagus Depression Hyperlipidemia Varicose vein of leg Shingles Neuropathy Arthritis Diabetes Cardiac ischemia High cholesterol High blood pressure Surgical History H/O arthroscopy of right knee History of vasectomy S/P trigger finger release H/O lateral meniscus repair of right knee History of carpal tunnel surgery of left wrist History of carpal tunnel surgery of right wrist History of rotator cuff surgery History of tonsillectomy and adenoidectomy Family History Mother High blood pressure High cholesterol Cardiovascular disease Father High blood pressure High cholesterol Prostate cancer Esophagus cancer Social History (Updated 01/12/25 @ 08:28 by Frances Carbajal CMA) Housing: Apartment Alcohol intake: current Alcohol intake frequency: holidays/special occasions only Patient Tobacco Use Status: Never used Tobacco e-Cigarette/Vaping Use: Never Used Second Hand Smoke Exposure: No service: No Current occupational status: employed Current occupation: [email or web address] Current occupational exposures/hazards: Yes Cognitive needs: No Hearing needs: No Vision needs: Yes Review of Systems Const Denies chills, Denies fatigue, Denies fever(s), Denies frequent falls, Denies weakness, Denies weight gain and Denies weight loss ENT Denies dizziness Card Denies chest pain, Reports leg edema, Denies lightheadedness, Denies palpitations, Reports dyspnea and Reports dyspnea on exertion Resp Denies cough, Reports dyspnea and Reports dyspnea on exertion GI Denies hematochezia Musc Denies abnormal gait, Denies muscle weakness, Denies numbness, Denies radiating pain into limb and Denies tingling Neuro Denies abnormal gait, Denies dizziness, Denies frequent falls, Denies numbness, Denies tingling and Denies weakness Endo Denies fatigue and Denies palpitations Physical Exam Vital Signs: Last Vital Signs Pulse 74 01/12/25 08:26 BP 140/80 H 01/12/25 08:26 BMI result Body Mass Index 34.4 Const General: comfortable and no acute distress Orientation/consciousness: patient oriented x3 HEENT Other: Unremarkable Head: Yes normal to inspection Neck Neck: Yes normal visual inspection Chest Chest palpation & inspection: normal inspection of the chest Resp Auscultation: clear to auscultation bilaterally Cardio Palpation: normal PMI Heart sounds: S1 normal heart sound present, S2 normal heart sound present, no gallops, no murmurs and no rubs GI Palpation (GI): Soft to palpation Back/Spine/Pelvis Other: unremarkable Skin General skin exam: no rashes or lesions noted Neuro General: patient oriented x3 Extrem General: Yes normal to inspection Psych Mental Status: mental status grossly normal Office Procedures EKG Details: EKG with underlying sinus rhythm at 74/Min; premature supraventricular ectopy; suggestion of old inferior infarct; normal NM/[place]. [address]-Kmfiuvozclygmkjln, Complete Assessment & Plan Assessment & Plan (1) Atherosclerotic cardiovascular disease: Code(s): I25.10 - Atherosclerotic heart disease of eastern shosh[place] coronary artery without angina pectoris Category: Medical (2) Diabetes: Code(s): E11.9 - Type 2 diabetes mellitus without complications Category: Medical (3) High blood pressure: Code(s): I10 - Essential (primary) hypertension Category: Medical (4) High cholesterol: Code(s): E78.00 - Pure hypercholesterolemia, unspecified Category: Medical Plan Myocardial perfusion imaging study from [place], 2018-small to moderate reversible defect in the apical anterior, apical septal, apical areas suggestive of ischemia. Currently EKG shows inferior wall findings not seen in the earlier EKGs from last year. Considering the patient's history and presentation, I plan to proceed with cardiac catheterization to evaluate for potential coronary artery disease, in light of prior ischemic findings and current symptomatology of dyspnea on exertion. This diagnostic procedure is crucial to visualize coronary blockages, guided by prior ischemic indications and recent differing ECG findings. The patient was informed of the catheterization via radial or femoral access, acknowledging diagnostic confirmation and therapeutic intervention if pathologies are present. Benefits of resolving obstructive ischemia were weighed against procedural risks like vascular complications, ensuring informed consent and understanding. Future management and necessary absenteeism from work were candidly discussed, particularly emphasizing individualized recovery duration contingent on procedural outcomes inclusive of potential stenting. My focus will be to address underlying pathologies contributing to the patient's presenting symptoms. During our conversation, I explained the need for coronary catheterization based on historical ischemia and recent presentations of shortness of breath. We discussed how this procedure could definitively assess and potentially resolve ischemic pathology, which may be compounding his current respiratory issues, especially with exertion. The patient was informed about the procedure's benefits in terms of symptom relief, alongside risks of bleeding or reaction to contrast dyes. We addressed logistics given his work commitments, explaining that the procedure is generally a day case unless additional intervention is needed, in which recovery could extend. We also discussed following up with lab works within 30 days prior to the procedure. The patient understood the necessity and agreed to proceed, highlighting proactivity in managing his cardiac risks, given his comorbid ailments like hypertension, diabetes, and hypercholesterolemia. The collaborative plan was designed in consideration of all current data points and his clinical presentation. We will request last office note from [place] jitterbug operator. Patient was informed and verbally consented to the use of an ambient scribe for clinic note documentation during this visit. To start Aspirin 81mg daily. Orders: Orders CA echo transthoracic complete Today I25.10 - Atherosclerotic heart disease of [place] coronary artery without angina pectoris Cardiac Cath LT Diagnostic Today I25.10 - Atherosclerotic heart disease of [place] coronary artery without angina pectoris Basic Metabolic Panel Today I25.10 - Atherosclerotic heart disease of [place] coronary artery without angina pectoris Complete Blood Count no Diff Today I25.10 - Atherosclerotic heart disease of [place] coronary artery without angina pectoris Prothrombin Time INR Today I25.10 - Atherosclerotic heart disease of [place] coronary artery without angina pectoris Medications: New nitroglycerin do not exceed 3 doses per episode 0.4 mg sublingual Q5M PRN 30 tabs 5RF chest pain Patient Instructions: - Proceed with scheduled cardiac catheterization to evaluate heart health. - Expect a day-case procedure, possibly extending if intervention like stenting is required. - Monitor and report any new or worsening symptoms immediately. - Follow prescribed medication regimen strictly and report any side effects. - Coordinate with your insurance and employer regarding planned medical leave. - Arrange labs within 30 days prior to the scheduled procedure. - Contact the office with any questions or concerns before the procedure. - Avoid strenuous activities and listen to your body, resting as needed to prevent symptoms. - Understand and consent to the procedure after discussing risks and benefits. Coding Level of Care Code New Pt Level 4 (54814) Complex EM visit Add On G2211 Diagnoses Atherosclerotic cardiovascular disease I25.10 Diabetes E11.9 High blood pressure I10 High cholesterol E78.00 CPT Codes EKG - CPT: 50075-Qkatxohcnizktvdyn, Complete ([id number])
[2025-01-12 08:26] VITALS: BP 140/80; PULSE 74; BMI 34.4
--- OUTSIDE RECORDS SUMMARY | 2025-01-12 08:28 | XMS_ITS ---
Author Organization [facility] [place] Address [address] [place] [address] Care Team Providers Care Aircraft Maintenance Manager Name Role Phone Ibrahima OUTSIDE SALESMAN, [facility] Primary Care Provider Unavail able Melanie Sarg[place] Unavailable [phone] REASON FOR VISIT [facility] Code Encounters Encounter Location Date Provider Diagnosis [address] [address] 01/02/2025 Melanie Sargent Plan Of Treatment Next Appt Details Provider Name:Melanie harden, 03/17/2025 11:00:00 AM, [address] [place] [address], [address], Progress Notes * Pricne REESDOB:[birth year] (69 yo M)Acc No.[id number]:01/02/2025 Patient:?Prince REES :1955???Age:69 Y???Sex:Male Address:[address] [place] [address], [facility], [place], [address] * true * Date:? Generated for Printi ng/Faxing/eTransmitting on:?01/12/2025 08:28 AM EDT
--- OUTSIDE RECORDS SUMMARY | 2025-01-12 08:28 | XMS_ITS ---
Author Organization [facility] Address [address] [place] [address] Care Team Providers Care Wax Cutter Name Role Phone Ibrahima BUILDING SERVICEMAN, Theron Primary Care Provider Unavail able Melanie Sargent Unavailable [phone] Encounters Encounter Location Date Provider Diagnosis [address] [address] 12/02/2024 Melanie Sargent Plan Of Treatment Next Appt Details Provider Name:Melanie harden, 03/17/2025 11:00:00 AM, [address] [place] [address], [address], Progress Notes * Prince REESDOB:[birth year] (69 yo M)Acc No.[id number]:12/02/2024 Progress Notes Patient:?Prince REES Provider:?Melanie Sargent DPM :1955???Age:69 Y???Sex:Male Harshad e:12/02/2024 Address:[address] [place] [address], [facility], [place], [place]-[address] Pcp:Theron Alexandra NP Subjective: * Chief [...] Sargent DPM Date:? Generated for Carrie velez/Arun/Ladarius on:?01/12/2025 08:28 AM EDT
--- OUTSIDE RECORDS SUMMARY | 2025-01-12 08:29 | XMS_ITS | Clinical Summary ---
Author Organization [facility] Address [address] [place] [address] Care Team Providers Care Sodium Methylate Operator Name Role Phone Lyla Brar RESPITE PROVIDER Primary Care Provider [phone] Surgical History Surgery Date Site/Laterality Comments UPPER GASTROINTESTINAL ENDOSCOPY PROCEDURE:UPPER GASTROINTESTINAL ENDOSCOPY COLONOSCOPY PROCEDURE:COLONOSCOPY TONSILLECTOMY PROCEDURE:TONSILLECTOMY HAND SURGERY PROCEDURE:HAND SURGERY;COMMENT:galo carpal tunnel SHOULDER SURGERY PROCEDURE:SHOULDER SURGERY;COMMENT:rt rotator cuff VEIN SURGERY PROCEDURE:VEIN SURGERY;COMMENT:rt leg vein stripping COLONOSCOPY 12/14/2014 N/A PROCEDURE:COLONOSCOPY;COMMENT :Procedure: COLONOSCOPY SCREEN; Surgeon: Molly Aponte MD; Location: [facility]; Service: Gastroenterology; Laterality: N/A; UPPER GASTROINTESTINAL ENDOSCOPY 10/03/2014 N/A PROCEDURE:UPPER GASTROINTESTINAL ENDOSCOPY;COMMENT:Procedure: UPPER ENDOSCOPY-EGD, ABDOMINAL PAIN, GI BLEED; Surgeon: Molly Aponte MD; Location: [facility]; Service: Gastroenterology; Laterality: N/A; Medical History Medical History Date Comments GERD (gastroesophageal reflux disease) DX:GERD (gastroesophageal reflux disease) Levy esophagus DX:Levy eso phagus Hypertension DX:Hypertension Hyperlipidemia DX:Hyperlipidemi a Peripheral neuropathy DX:Periphe ral neuropathy Diabetes mellitus, type II ( CMS/HCC V24, CMS/HCC V28) DX:Diabetes mellitus, type I I ([facility]) Rash DX:Rash;COMMENT: occ fungus infection on feet [...] Vaccine ( - 2023-2 5 season) 2024 Cholesterol Screening (Lipid Panel) 12/18/2024 12/19/2019 Influenza Vaccine (Season Ended) 2025 RSV Immunization Adult Patie nts (1 - 1-dose 75+ series) 2031 HIB [...] age to complete this topic Meningococcal B Vaccine Aged Out No l onger eligible based on patient's age to complete this topic RSV Immunization Patients Un nita 20 months Aged Out No longer eligible b ased on patient's age to complete this topic Varicella Vaccines Aged Out No longer eligible based on patient's age to complete this topic Care Teams Sodium Methylate Operator Relationship Specialty Start Date End Date Lyla Brar NP [address] [place] [address] PCP - General Family Medicine 09/22/14
--- OUTSIDE RECORDS SUMMARY | 2025-01-12 08:29 | XMS_ITS | Patient Health Record ---
[facility] Address [address] [place] [address] Care Team Providers Care Drywall Taper Helper Name Role Phone Ibrahima ACEVES, Theron Primary Care Provider Unavail able ArleenSebastien hardenen Unavailable [phone] Allergies No Known Allergies Results Component Value [...] Problem Acquired hammer toe of right foot (9482945277944539 ) Other hammer toe(s) (acquired), right foot (M20.41) Active confirmed Problem Acquired hammer toe of left foot (9143417151513036 ) Other hammer toe(s) (acquired), left foot (M20.42) Active confirmed Problem Polyneuropathy due to diabetes mellitus type I (294771377) Type 1 diabetes mellitus with diabetic polyneuropathy (E10.42) Active confirmed Problem Polyneuropathy due to type 2 diabetes mellitus (505004538) Type 2 diabetes mellitus with diabetic polyneuropathy (E11.42) Active confirmed Vital Signs Blood pressure diastolic 70 mm Hg 12/09/2024 Height 5ft 10in in 12/09/2024 Blood pressure systolic 115 mm Hg 12/09/2024 Weight 232 lbs 12/09/2024 BMI 33.28 kg/m2 12/09/2024 Encounters Encounter Location Date [facility] [address] 12/09/2024 Melanie Sargent Type 2 diabetes mellitus with diabetic polyneuropathy E11.42 ; Other hammer toe(s) (acquired), left foot M20.42 ; Tinea unguium B35.1 and Other hammer toe(s) (acquired), right foot M20.41 [facility] [address] [place] [address] 09/21/2024 Melanie Sargent [facility] [place] [address] [place] [address] 01/02/2025 Melanie Sargent Assessments Encounter Date Diagnosis (ICD [...] Details Provider Name:Melanie harden, 03/17/2025 11:00:00 AM, [address] [place] [address], [address], Insurance Providers Payer Name Payer Address Payer Phone Subscriber Number Group Number Insured Name Patient Relationship to Insured Coverage Start Date Coverage End Date [facility] [address] [place] [address] [id number] Prince Rees Self - patient is [...]
--- OUTSIDE RECORDS SUMMARY | 2025-01-12 08:29 | XMS_ITS | Clinical Summary ---
Author Organization [facility] Address [address] [place] [address] Care Team Providers Care Locator Specialist Name Role Phone Lyla Brar APRN Primary [...] Advance Directives For more information, please contact: [phone] Latest Code Status on File Code Status [...] following way: discussion with patient. Care Teams Locator Specialist Relationship Specialty Start Date End Date Lyla Brar APRN [address] [place] [address] PCP - General Family Medicine 09/22/14
--- OUTSIDE RECORDS SUMMARY | 2025-01-12 08:29 | XMS_ITS | Clinical Summary ---
Author Organization [facility] Address [address] [place] [address] Care Team Providers Care Extra Gang Supervisor Name Role Phone IbrahimaFord javier KETAN Primary Care Provider [phone] Allergies No known active allergies Medications Medication [...] age to complete this topic Care Teams Extra Gang Supervisor Relationship Specialty Start Date End Date Ford Alexandra NP [address] [place] [address] PCP - General 08/25/24
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
--- OUTSIDE RECORDS SUMMARY | 2025-01-12 08:29 | XMS_ITS ---
Author Organization [facility] Address [address] [place] [address] Care Team Providers Care News Clerk Name Role Phone Ibrahima ACEVES, Theron Primary Care Provider Unavail able Melanie Sargent Unavailable [phone] Allergies No Known Allergies REASON FOR VISIT [...] Polyneuropathy due to type 2 diabetes mellitus (454431535) Type 2 diabetes mellitus with diabetic polyneuropathy (E11.42) Active confirmed Problem Polyneuropathy due to diabetes mellitus type I (771386423) Type 1 diabetes mellitus with diabetic polyneuropathy (E10.42) Active confirmed Problem Acquired hammer toe of right foot (8547202473036543 ) Other hammer toe(s) (acquired), right foot (M20.41) Active confirmed Problem Acquired hammer toe of left foot (8678913115736727 ) Other hammer toe(s) (acquired), left foot (M20.42) Active confirmed Vital Signs Height 5ft 10in in 12/09/2024 Weight 232 lbs 12/09/2024 BMI 33.28 kg/m2 12/09/2024 Blood pressure systolic 115 mm Hg 12/10/19 25 Blood pressure diastolic 70 mm Hg 025 Encounters Encounter Location Date Provider Diagnosis [facility] [place] [address] [place] [address] 12/09/2024 Melanie Sargent Type 2 diabetes mellitus [...] Reason: Provider Name:Melanie harden, 03/17/2025 11:00:00 AM, [address] [place] [address], [address], Procedure Notes * Category Sub-Category Detail [...] use of a nail nipper and/or dremel-type pulp grinder, to a more viable healthy nail [...] to maintain effectiveness in symptomatic relief - 26252 Keratoma Treatment Parring or Cutting o f [...] instrumentation by the physician of record - 87459 Progress Notes * Prince REESDOB:[birth year] (69 yo M)Acc No.[id number]:12/09/2024 Progress Notes Patient:?Prince REES Provider:?Melanie Sargent DPM :1955???Age:69 Y???Sex:Male Harshad e:12/09/2024 Address:[address] [place] [address] Pcp:Theron Alexandra NP Subjective: * Chief Complaints: [...] 1988/1997/2012rotator cuff tear repair 1995vericose vein removed 2012[facility] right 2022tm left atenal mewiscus repair right [...] 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 ?Marital status: . ?Occupation: [employer]. ???Drug/Alcohol:?AUDIT-C (Standard)?Did you have a drink containing [...] use of a nail nipper and/or dremel-type pulp grinder, to a more viable healthy nail [...] to maintain effectiveness in symptomatic relief - 11481.?Keratoma Treatment:?Parring or Cutting of Benign Hyperkeratotic Lesion(s)?(-57) [...] instrumentation by the physician of record - 32482.? * Procedure Codes:?60897 DEBRI DE NAIL, 6 OR MORE, Modifiers: XS 41371 TRIM SKIN LESIONS, OVER 4, Modifiers: XS [...] Sargent DPM Date:?04/2025 Generated for Carrie velez/Arun/Ladarius on:?01/12/2025 08:29 AM EDT History and Physical Notes * HPI [...] dorsal 5th toe and mpj Left Orthopedic FOOTWEAR EVALUATION: worn, non-s upportive, shoe gear properties exacerbate patient's foot/toe deformity [...]
== END 2025-01-12 09:14 | disposition home or self-care (01) ==
LOC: HO.HCS 08:19
PROVIDERS: PCP Nurse Practitioner Family; Visit Provider Internal Medicine
DX: I25.10 Atherosclerotic heart disease of native coronary artery without angina pectoris (principal); E11.9 Type 2 diabetes mellitus without complications; I10 Essential (primary) hypertension; E78.00 Pure hypercholesterolemia, unspecified
CPT/HCPCS: 93010; 99204

== ENCOUNTER → 2025-01-12 08:18 | Outpatient (BNVA) | payer BC, SELFPAY | PROVIDERS: PCP Nurse Practitioner Family; Visit Provider Internal Medicine | DX: I25.10 Atherosclerotic heart disease of native coronary artery without angina pectoris (principal); I10 Essential (primary) hypertension; E11.9 Type 2 diabetes mellitus without complications; E78.00 Pure hypercholesterolemia, unspecified; Z79.85 Long-term (current) use of injectable non-insulin antidiabetic drugs; Z79.84 Long term (current) use of oral hypoglycemic drugs | CPT/HCPCS: 93005 ==

== ENCOUNTER → 2025-02-10 12:53 | Outpatient (REF) | payer BC, SELFPAY ==
--- NOTE | 2025-02-10 12:56 | CA_ITS ---
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 Study Quality: Adequate w/Contrast ECG Rhythm: Sinus Conclusions: - The left ventricular systolic function is low normal. The calculated ejection fraction is 53% by biplane method. - No obvious valvular pathology seen on this study. Findings Left Ventricle Normal left ventricular cavity size. There is mildly increased left ventricular wall thickness. The left ventricular systolic function is low normal. The calculated ejection fraction is 53% by biplane method. There is no evidence of regional wall motion abnormalities. Diastolic function is normal for age. Right Ventricle Mildly increased right ventricular cavity size. There is normal right ventricular systolic function. Atria The left atrium is mildly dilated. The right atrium is normal in size. Aortic Valve There is a normal trileaflet aortic valve. There is no aortic valve stenosis. There is no aortic valve regurgitation. Mitral Valve The mitral valve appears normal. There is no mitral valve regurgitation. There is no mitral valve stenosis. Pulmonic Valve The pulmonic valve is likely normal. Tricuspid Valve There is mild tricuspid valve regurgitation. There is no evidence of pulmonary hypertension. Great Vessels The asc aorta is normal in size. Venous The inferior vena cava is normal in size and collapses greater than 50% with inspiration. Pericardium/Pleural There is no evidence of pericardial effusion. Prior Study Comparison No prior study available for comparison. Recommendations, Care & Conclusions No obvious valvular pathology seen on this study. Measurements 2D Linear Measurements IVSd: 1.09 0.6-0.9/0.6-1.0 cm LVIDd: 4.97 3.9-5.3/4.2-5.9 cm LVIDd Index: 2.22 2.4-3.2/2.2-3.1 cm/m2 LVIDs: 3.61 2.0-3.6 cm LVPWd: 1.05 0.7-1.1 cm LA Diam: 3.70 2.7-3.8/3.0-4.0 cm LAIDs Index: 1.65 1.5-2.3 cm/m2 LV Mass: 246.13 67-162/88-224 g LV Mass Index: 109.88 43-95/49-115 g/m2 LVOT Diam: 2.20 3.0+(-)1.3 cm 2D Systolic Function EF 4C: 53.00 >55% EF 2C: 51.60 >55% EF BiP: 52.60 >55% Mitral Valve MV Pk E: 0.83 MV PK A: 0.45 MV Decel Time: 143.00 E/A: 1.80 E'Lateral: 10.40 E'Medial: 7.18 E/E' Med: 11.50 E/E' Lat: 8.00 PHT: 42.00 MVA PHT: 5.24 Decel Preble: 5.80 Aortic Valve AoV Pk Leo: 1.05 AoV Mn Leo: 0.78 AoV VTI: 0.22 AoV Pk Grad: 4.00 Aov Mn Grad: 3.00 CLIVE Cont.VTI: 2.57 LVOT LVOT Pk Leo: 0.72 LVOT Mn Leo: 0.54 LVOT VTI: 0.15 LVOT Pk Grad: 2.00 LVOT Mn Grad: 2.00 LVOT Diam: 2.20 LVOT Area: 3.80 Diastolic Function MV Pk E: 0.83 MV Pk A: 0.45 E/A: 1.80 E'Medial: 7.18 E/E' Med: 11.50 E' Laterial: 10.40 E/E' Lat: 8.00 Right Ventricle TAPSE (mm): 22.90 TVS' Leo: 11.70 Tricuspid Valve TR Pk Leo: 2.12 TR Pk Grad: 18.00 RA Press: 3.00 RVSP: 21.00 Great Vessels Aorta Sinus of Valsalva: 3.30 2.0-3.5 cm Ao Asc: 3.00 2.1-3.4 cm Ao Arch: 2.90 Pulmonary Valve PV Pk Leo: 0.89 Peak PV Grad: 3.00 Updated in Other Vendor System with Status of Final Gamaliel Parish MD electronically signed on 02/11/2025 1:28:14 PM with status of Final
--- OUTSIDE RECORDS SUMMARY | 2025-02-10 12:56 | XMS_ITS ---
Author Organization [facility] [place] Address [address] [place] [address] Care Team Providers Care Mobile Tester Name Role Phone Ibrahima PRIVATE MORTGAGE BANKER SAFE, [facility] Primary Care Provider Unavail able Melanie Sargent Unavailable [phone] REASON FOR VISIT [facility] Code Encounters Encounter Location Date Provider Diagnosis [address] [address] 01/02/2025 Melanie Sargent Plan Of Treatment Next Appt Details Provider Name:Melanie harden, 03/17/2025 11:00:00 AM, [address] [place] [address], [address], Progress Notes * Prince REESDOB:[birth year] (69 yo M)Acc No.[id number]:01/02/2025 Patient:?Prince REES :1955???Age:69 Y???Sex:Male Address:[address] [place] [address], [facility], [place], [address] * true * Date:? Generated for Printi ng/Faxing/eTransmitting on:?02/10/2025 12:56 PM EDT
--- OUTSIDE RECORDS SUMMARY | 2025-02-10 12:57 | XMS_ITS ---
Author Organization [facility] Address [address] [place] [address] Care Team Providers Care Operations Manager Name Role Phone Ibrahima ACEVES, Theron Primary Care Provider Unavail able Melanie Sargent Unavailable [phone] Allergies No Known Allergies REASON FOR VISIT [...] Polyneuropathy due to type 2 diabetes mellitus (956190818) Type 2 diabetes mellitus with diabetic polyneuropathy (E11.42) Active confirmed Problem Polyneuropathy due to diabetes mellitus type I (343123035) Type 1 diabetes mellitus with diabetic polyneuropathy (E10.42) Active confirmed Problem Acquired hammer toe of right foot (9633284691683212 ) Other hammer toe(s) (acquired), right foot (M20.41) Active confirmed Problem Acquired hammer toe of left foot (1154166288138136 ) Other hammer toe(s) (acquired), left foot (M20.42) Active confirmed Vital Signs Height 5ft 10in in 12/09/2024 Weight 232 lbs 12/09/2024 BMI 33.28 kg/m2 12/09/2024 Blood pressure systolic 115 mm Hg 12/10/19 25 Blood pressure diastolic 70 mm Hg 025 Encounters Encounter Location Date Provider Diagnosis [facility] [place] [address] [place] [address] 12/09/2024 Melanie Sargent Type 2 diabetes mellitus [...] Reason: Provider Name:Melanie harden, 03/17/2025 11:00:00 AM, [address] [place] [address], [phone], Procedure Notes * Category Sub-Category Detail [...] use of a nail nipper and/or dremel-type snuff grinder and screener, to a more viable healthy nail plate [...] to maintain effectiveness in symptomatic relief - 95617 Keratoma Treatment Parring or Cutting o f [...] instrumentation by the physician of record - 09300 Progress Notes * Prince REESDOB:[birth year] (69 yo M)Acc No.[id number]:12/09/2024 Progress Notes Patient:?Prince REES Provider:?Melanie Sargent DPM :1955???Age:69 Y???Sex:Male Harshad e:12/09/2024 Address:[address] [place] [address] Pcp:Theron Alexandra NP Subjective: * Chief Complaints: [...] 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 ?Marital status: . ?Occupation: [employer]. ???Drug/Alcohol:?AUDIT-C (Standard)?Did you have a drink containing [...] use of a nail nipper and/or dremel-type snuff grinder and screener, to a more viable healthy nail plate [...] to maintain effectiveness in symptomatic relief - 68143.?Keratoma Treatment:?Parring or Cutting of Benign Hyperkeratotic Lesion(s)?(-57) [...] instrumentation by the physician of record - 58692.? * Procedure Codes:?26729 DEBRI DE NAIL, 6 OR MORE, Modifiers: XS 00453 TRIM SKIN LESIONS, OVER 4, Modifiers: XS [...] Sargent DPM Date:?04/2025 Generated for Carrie velez/Arun/Ladarius on:?02/10/2025 12:57 PM EDT History and Physical Notes * [...]
--- OUTSIDE RECORDS SUMMARY | 2025-02-10 12:57 | XMS_ITS | Clinical Summary ---
Author Organization [facility] Address [address] [place] [address] Care Team Providers Care City Controller Name Role Phone Lyla Brar APRN Primary [...] Advance Directives For more information, please contact: [phone] Latest Code Status on File Code Status [...] following way: discussion with patient. Care Teams City Controller Relationship Specialty Start Date End Date Lyla Brar APRN [address] [place] [address] PCP - General Family Medicine 09/22/14
--- OUTSIDE RECORDS SUMMARY | 2025-02-10 12:57 | XMS_ITS | Clinical Summary ---
Author Organization [facility] Address [address] [place] [address] Care Team Providers Care Market Analyst Name Role Phone Lyla Brar NUTRITION THERAPIST Primary Care Provider [phone] Surgical History Surgery Date Site/Laterality Comments UPPER GASTROINTESTINAL ENDOSCOPY PROCEDURE:UPPER GASTROINTESTINAL ENDOSCOPY COLONOSCOPY PROCEDURE:COLONOSCOPY TONSILLECTOMY PROCEDURE:TONSILLECTOMY HAND SURGERY PROCEDURE:HAND SURGERY;COMMENT:galo carpal tunnel SHOULDER SURGERY PROCEDURE:SHOULDER SURGERY;COMMENT:rt rotator cuff VEIN SURGERY PROCEDURE:VEIN SURGERY;COMMENT:rt leg vein stripping COLONOSCOPY 12/14/2014 N/A PROCEDURE:COLONOSCOPY;COMMENT :Procedure: COLONOSCOPY SCREEN; Surgeon: Molly Aponte MD; Location: [facility]; Service: Gastroenterology; Laterality: N/A; UPPER GASTROINTESTINAL ENDOSCOPY 10/03/2014 N/A PROCEDURE:UPPER GASTROINTESTINAL ENDOSCOPY;COMMENT:Procedure: UPPER ENDOSCOPY-EGD, ABDOMINAL PAIN, GI BLEED; Surgeon: Molly Aponte MD; Location: [facility]; Service: Gastroenterology; Laterality: N/A; Medical History Medical History Date Comments GERD (gastroesophageal reflux disease) DX:GERD (gastroesophageal reflux disease) Levy esophagus DX:Levy eso phagus Hypertension DX:Hypertension Hyperlipidemia DX:Hyperlipidemi a Peripheral neuropathy DX:Periphe ral neuropathy Diabetes mellitus, type II ( CMS/HCC V24, CMS/HCC V28) DX:Diabetes mellitus, type I I ([facility]) Rash DX:Rash;COMMENT: occ fungus infection [...] age to complete this topic Care Teams Market Analyst Relationship Specialty Start Date End Date Lyla Brar NP [address] [place] [address] PCP - General Family Medicine 09/22/14
--- OUTSIDE RECORDS SUMMARY | 2025-02-10 12:57 | XMS_ITS | Patient Health Record ---
[facility] Address [address] [place] [address] Care Team Providers Care College Director Name Role Phone Ibrahima ACEVES, Theron Primary Care Provider Unavail able ArleenSebastien hardenen Unavailable [phone] Allergies No Known Allergies Results Component Value [...] Problem Acquired hammer toe of right foot (9895506963946728 ) Other hammer toe(s) (acquired), right foot (M20.41) Active confirmed Problem Acquired hammer toe of left foot (7725604099765247 ) Other hammer toe(s) (acquired), left foot (M20.42) Active confirmed Problem Polyneuropathy due to diabetes mellitus type I (163978986) Type 1 diabetes mellitus with diabetic polyneuropathy (E10.42) Active confirmed Problem Polyneuropathy due to type 2 diabetes mellitus (653146229) Type 2 diabetes mellitus with diabetic polyneuropathy (E11.42) Active confirmed Vital Signs Blood pressure diastolic 70 mm Hg 12/09/2024 Height 5ft 10in in 12/09/2024 Blood pressure systolic 115 mm Hg 12/09/2024 Weight 232 lbs 12/09/2024 BMI 33.28 kg/m2 12/09/2024 Encounters Encounter Location Date Provider [facility] [address] 12/09/2024 Melanie Sargent Type 2 diabetes mellitus with diabetic polyneuropathy E11.42 ; Other hammer toe(s) (acquired), left foot M20.42 ; Tinea unguium B35.1 and Other hammer toe(s) (acquired), right foot M20.41 [facility] [address] [place] [address] 09/21/2024 Melanie Sargent [facility] [place] [address] [place] [address] 01/02/2025 Melanie Sargent Assessments Encounter Date Diagnosis [...] Details Provider Name:Melanie harden, 03/17/2025 11:00:00 AM, [address] [place] [address], [address], Insurance Providers Payer Name Payer Address Payer Phone Subscriber Number Group Number Insured Name Patient Relationship to Insured Coverage Start Date [facility]age End Date [facility] [address] [place] [address] [id number] Prince Rees Self - patient is [...]
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
--- OUTSIDE RECORDS SUMMARY | 2025-02-10 12:57 | XMS_ITS ---
Author Organization [facility] Address [address] [place] [address] Care Team Providers Care Chief Safety Officer Name Role Phone Ibrahima BAR SUPERVISOR, Theron Primary Care Provider Unavail able Melanie Sargent Unavailable [phone] Encounters Encounter Location Date Provider Diagnosis [address] [address] 12/02/2024 Melanie Sargent Plan Of Treatment Next Appt Details Provider Name:Melanie harden, 03/17/2025 11:00:00 AM, [address] [place] [address], [address], Progress Notes * Prince REESDOB:[birth year] (69 yo M)Acc No.[id number]:12/02/2024 Progress Notes Patient:?Prince REES Provider:?Mealnie Sargent DPM :1955???Age:69 Y???Sex:Male Harshad e:12/02/2024 Address:[address] [place] [address], [facility], [place], [place]-[address] Pcp:Theron Alexandra NP Subjective: * Chief Complaints: * ??? * Medical History:? Objective: * Vitals:? Assessment: Plan: * Treatment: * Images: * The named appointment provid er may or may not be the originator of this progress note, and it is not deemed complete until electronically signed by the appointment provider. Sign off status: Pending * Provider:Maile Sargent DPM Date:? Generated for Carrie velez/Arun/Ladarius on:?02/10/2025 12:56 PM EDT
== END ==
LOC: HO.CARD 12:53
PROVIDERS: PCP Nurse Practitioner Family; Visit Provider Internal Medicine
DX: I25.10 Atherosclerotic heart disease of native coronary artery without angina pectoris (principal)
CPT/HCPCS: 93306; Q9957

== ENCOUNTER → 2025-02-10 12:56 | Outpatient (BNV) | payer BC, SELFPAY | PROVIDERS: PCP Nurse Practitioner Family; Visit Provider Internal Medicine | DX: I36.1 Nonrheumatic tricuspid (valve) insufficiency (principal) | CPT/HCPCS: 93306 ==

== ENCOUNTER 2025-03-16 11:04 | Outpatient (REF) | payer BC, SELFPAY ==
[2025-03-16 14:29] LABS: Influenza A PCR NEGATIVE (Negative); Influenza B PCR NEGATIVE (Negative); Resp Syncy Virus RNA Qual PCR NEGATIVE (Negative); SARS COV2 PCR INHOUSE NEGATIVE (Negative)
== END 2025-03-16 11:05 | disposition home or self-care (01) ==
LOC: HO.LAB 11:04
PROVIDERS: PCP Nurse Practitioner Family; Visit Provider Physician Assistant
DX: J06.9 Acute upper respiratory infection, unspecified (principal); R09.89 Other specified symptoms and signs involving the circulatory and respiratory systems
CPT/HCPCS: 0241U; 87880

== ENCOUNTER 2025-03-16 11:04 | Outpatient (AMB) | payer BC, SELFPAY ==
--- NOTE | 2025-03-16 11:46 | MHC.OFFWIV ---
Intake Vital Signs 03/16/25 11:47 Height 5 ft 10 in Weight 245 lb 4 oz BMI 35.2 BP 152/94 H Blood Pressure Location Rt brachial Position Sitting Pulse 78 Pulse Source Pulse Oximeter Temp 98.1 F Temp Source Oral Pulse Oximetry (%) 96 Oxygen Delivery Method Room Air Intake Visit Reasons: EP-sore throat, sinus issue, headaches, body ache Intake Note: Pt presents to the office today for c/o body aches, sinus pressure, headache, and sore throat x2 days. Patient Tobacco Use Status: Never used Tobacco Allergies No Known Allergies Allergy (Verified 03/16/25 11:47) HPI HPI Comments History of Present Illness Details History - The patient is a 69-year-old male presenting with the onset of clear nasal drainage last week, progressing to sore throat, headache, sinus pressure, and green nasal discharge. Some cough and congestion. - The patient experienced profuse sweating at night despite a cool environment, suggesting possible fever, although no temperature was checked. - Shortness of breath has been persistent since the onset of symptoms but developed over the last 4-6 months, he is seeing a Cards for this issues. - The patient has a history of ischemic heart disease diagnosed approximately 10 years ago, managed with amlodipine and benazepril. - Recent cardiac evaluations include an EKG and echocardiogram, with a cardiac catheterization initially denied by insurance but later approved for a cardiac CT scan scheduled for the of this month. - Echocardiogram results were reported as normal for age with an ejection fraction of 53%. Physical Exam General: Cooperative, healthy appearing, comfortable and no acute distress Orientation/consciousness: Patient oriented x3 Limitations: No limitations Head: Normal to inspection Ears: Hearing grossly normal bilaterally, external ears normal and TM's normal bilaterally Nose: Normal external nose present, Normal nares present and Green nasal discharge present Face and sinus: Normal facial exam and Sinuses tender Mouth: Normal oral and palatal mucosa present and moist mucous membranes Throat: Yes tonsils normal, Yes uvula midline. Posterior oropharynx erythema, no exudates Eyes: Appearance normal, both eyes and all related structures Neck: Normal visual inspection Respiratory: Clear to auscultation bilaterally. Normal respiratory effort, able to speak in complete sentences, not actively coughing, no respiratory distress, not tachypneic, no tripod positioning and no use of accessory muscles Cardiovascular: Regular rate and rhythm. Normal S1 and S2 Skin: No rashes or lesions noted Neuro: Patient oriented x3 Extremities: Normal to inspection and Yes no clubbing, cyanosis or edema PFSH Medical History Biceps tendon rupture Varicose veins of right thigh Erectile dysfunction Barretts esophagus Depression Hyperlipidemia Varicose vein of leg Shingles Neuropathy Arthritis Diabetes Cardiac ischemia High cholesterol High blood pressure Surgical History H/O arthroscopy of right knee History of vasectomy S/P trigger finger release H/O lateral meniscus repair of right knee History of carpal tunnel surgery of left wrist History of carpal tunnel surgery of right wrist History of rotator cuff surgery History of tonsillectomy and adenoidectomy Family History Mother High blood pressure High cholesterol Cardiovascular disease Father High blood pressure High cholesterol Prostate cancer Esophagus cancer Social History Housing: Apartment Alcohol intake: current Alcohol intake frequency: holidays/special occasions only Patient Tobacco Use Status: Never used Tobacco e-Cigarette/Vaping Use: Never Used Second Hand Smoke Exposure: No service: No Current occupational status: employed Current occupation: [employer] Current occupational exposures/hazards: Yes Cognitive needs: No Hearing needs: No Vision needs: Yes Review of Systems Const All systems reviewed & are unremarkable except as noted in HPI and below Physical Exam Vital Signs: Last Vital Signs Temp 98.1 F 03/16/25 11:47 Pulse 78 03/16/25 11:47 BP 152/94 H 03/16/25 11:47 Pulse Ox 96 03/16/25 11:47 Oxygen Delivery Method Room Air 03/16/25 11:47 BMI result Body Mass Index 35.2 Results AMB Rapid Strep AMB Rapid Strep Negative Last Edit by Radha Jackson CMA on 03/16/25 12:00 Results Reviewed Results Reviewed: Laboratory Last Values Strep Scn Rapid Clinic Negative 03/16/25 11:53 Assessment & Plan Assessment & Plan (1) Upper respiratory infection: Code(s): J06.9 - Acute upper respiratory infection, unspecified Qualifiers: URI type: unspecified URI Qualified Code(s): J06.9 - Acute upper respiratory infection, unspecified Plan: VSS, pt well appearing and PE unremarkable. - Rapid strep negative, low concern for strep. - Initiate treatment with Flonase (fluticasone propionate) nasal spray to alleviate sinus pressure and congestion. - Prescribe Tessalon Perles for nighttime cough suppression to improve sleep quality. - Continue monitoring for results of flu, COVID-19, and RSV tests, with follow-up communication planned for test outcomes. - Advise the patient on the proper technique for using Flonase to maximize efficacy. - Schedule follow-up for cardiac CT scan on the of this month to further evaluate ischemic heart disease. Patient was informed and verbally consented to the use of an ambient scribe for clinic note documentation during this visit Orders: Orders AMB Rapid Strep Screen Today Allyssa Rosales PA-C Z13.9 - Encounter for screening, unspecified SARS-CoV2/FLU/RSV Today Gabbi Moran PA-C R09.89 - Other specified symptoms and signs involving the circulatory and respiratory systems Medications: New benzonatate 200 mg PO BEDTIME PRN 10 caps 0RF cough Gabbi Moran PA-C Coding Level of Care Code Est Pt Level 3 (45137) Diagnoses Upper respiratory tract infection, unspecified type J06.9 URI type: unspecified URI
[2025-03-16 11:47] VITALS: BP 152/94; PULSE 78; TEMP 36.7; O2SAT 96; BMI 35.2
--- OUTSIDE RECORDS SUMMARY | 2025-03-16 13:01 | XMS_ITS ---
Author Organization [facility] Address [address] [place] [address] Care Team Providers Care Medical Claims Representative Name Role Phone Ibrahima SAND CUTTING MACHINE OPERATOR, Theron Primary Care Provider Unavail able Melanie Sargent Unavailable [phone] Encounters Encounter Location Date Provider Diagnosis [address] [address] 12/02/2024 Melanie Sargent Plan Of Treatment Next Appt Details Provider Name:Melanie harden, 03/17/2025 11:00:00 AM, [address] [place] [address], [phone], Progress Notes * Prince REESDOB:[birth year] (69 yo M)Acc No.[id number]:12/02/2024 Progress Notes Patient:?Prince REES Provider:?Melanie Sargent DPM :1955???Age:69 Y???Sex:Male Harshad e:12/02/2024 Address:[address] [place] [address], [facility], [place], [place]-[address] Pcp:Theron Alexandra NP Subjective: * Chief [...] Sargent DPM Date:? Generated for Carrie velez/Arun/Ladarius on:?03/16/2025 01:00 PM EDT
== END 2025-03-16 12:21 | disposition home or self-care (01) ==
PROVIDERS: PCP Nurse Practitioner Family; Visit Provider Physician Assistant
DX: J06.9 Acute upper respiratory infection, unspecified (principal); Z13.9 Encounter for screening, unspecified

== ENCOUNTER 2025-03-17 12:52 | Outpatient (REF) | payer BC, SELFPAY ==
--- OUTSIDE RECORDS SUMMARY | 2025-03-17 13:17 | XMS_ITS ---
Author Organization [facility] Address [address] [place] [address] Care Team Providers Care Clinic Coordinator Name Role Phone Ibrahima SQUEEGEE OPERATOR, Theron Primary Care Provider Unavail able Melanie Sargent Unavailable [phone] Encounters Encounter Location Date Provider Diagnosis [address] [address] 12/02/2024 Melanie Sargent Plan Of Treatment Next Appt Details Provider Name:Melanie harden, 06/16/2025 10:00:00 AM, [address] [place] [address], [phone], Progress Notes * Prince REESDOB:[birth year] (69 yo M)Acc No.[id number]:12/02/2024 Progress Notes Patient:?Prince REES Provider:?Melanie Sargent DPM :1955???Age:69 Y???Sex:Male Harshad e:12/02/2024 Address:[address] [place] [address], [facility] 3, [place], [place] Pcp:Theron Alexandra NP Subjective: * Chief [...] Sargent DPM Date:? Generated for Carrie velez/Arun/Ladarius on:?03/17/2025 01:17 PM EDT
[2025-03-17 13:29] LABS: Hematocrit 46.4 % (42.0-52.0); Hemoglobin 15.7 g/dl (14.0-18.0); Mean Corpuscular HGB Conc 33.8 g/dl (31.0-36.0); Mean Corpuscular Hemoglobin 31.9 pg (27.0-33.0); Mean Corpuscular Volume 94.3 fL (80.0-98.0); Mean Platelet Volume 11.1 fL (9.4-12.4); Platelet Count 149 X10*3/uL (160-400); Red Blood Count 4.92 X10*6/uL (4.60-5.80); Red Cell Distribution Width 12.4 % (11.0-16.0); White Blood Count 5.1 X10*3/uL (4.8-10.8)
[2025-03-17 13:43] LABS: INTERNATIONAL NORM RATIO 0.9 (0.9-1.1); Prothrombin Time 10.8 SEC (10.9-12.4)
[2025-03-17 14:10] LABS: Anion Gap 12 (12-20); Blood Urea Nitrogen 15 mg/dL (9-16); Calcium 9.2 mg/dL (8.4-10.2); Carbon Dioxide 30 mmol/L (22-29); Chloride 103 mmol/L (96-108); Estimated Glomerular Filt Rate > 60; Glucose Random 136 mg/dL (60-115); Potassium 4.3 mmol/L (3.3-5.1); Sodium 141 mmol/L (135-145)
== END 2025-03-17 12:53 | disposition home or self-care (01) ==
LOC: HO.LAB 12:52
PROVIDERS: PCP Nurse Practitioner Family; Visit Provider Internal Medicine
DX: I25.10 Atherosclerotic heart disease of native coronary artery without angina pectoris (principal)
CPT/HCPCS: 36415; 80048; 85027; 85610

== ENCOUNTER 2025-03-31 09:16 | Outpatient (AMB) | payer BC, SELFPAY ==
--- OUTSIDE RECORDS SUMMARY | 2024-12-02 04:30 | XMS_ITS ---
Author Organization [facility] Address [address] [place] [address] Care Team Providers Care Ornamental Rail Installer Name Role Phone Ibrahima SAND CUTTING MACHINE OPERATOR, Theron Primary Care Provider Unavail Melanie Gomez Unavailable [phone] Encounters Encounter Location Date Provider Diagnosis [address] [address] 12/02/2024 Melanie Sargent Plan Of Treatment Next Appt Details Provider Name:Melanie harden, 06/16/2025 10:00:00 AM, [address] [place] [address], [address], Progress Notes * Prince REESDOB:[birth year] (69 yo M)Acc No.[id number]:12/02/2024 Progress Notes Patient: Darci Prince VALDEZ Provider: Baldemar Sargent DPM :1955 A ge:69 Y S ex:Male Date:12/02/2024 Address:[address] [place] [address], [address], [place], [place] Pcp:Theron Alexandra NP Subjective: * Chief [...] 12/02/2024 Generated for Carrie velez/Arun/Ladarius on: 0 03/31/2025 09:37 AM EDT
[2025-03-31 09:34] VITALS: BP 138/78; PULSE 67; BMI 33.2
--- NOTE | 2025-03-31 09:34 | MHC.OFFVIS ---
Vital Signs 03/31/25 09:34 Height 5 ft 10 in Weight 231 lb 7.766 oz BMI 33.2 BP 138/78 Blood Pressure Location Lt brachial Position Sitting Pulse 67 Pulse Source Pulse Oximeter Intake Visit Reasons: Follow up post coronary CTA (cath cancelled) Allergies No Known Allergies Allergy (Verified 03/16/25 11:47) Medication List - Last Reconciled 03/31/25 by Jeanine Carlisle NP-C atorvastatin 80 mg PO BEDTIME 90 days benazepril 20 mg PO DAILY 90 days benzonatate 200 mg PO BEDTIME PRN dulaglutide (Trulicity) 1.5 mg (0.5 mL) subcut QWEEK empagliflozin (Jardiance) 25 mg PO QAM escitalopram oxalate 10 mg PO DAILY 90 days gabapentin 600 mg PO BID meloxicam 15 mg PO DAILY metformin 500 mg PO DAILY miscellaneous medical supply 1 pair orthopedic shoes nitroglycerin 0.4 mg sublingual Q5M PRN HPI HPI Follow up post coronary CTA (cath cancelled): Details: Prince is a 69-year-old male with past medical history of hypertension, hyperlipidemia, diabetes who is being evaluated for shortness of breath. On last visit an echocardiogram and CTA of the coronary arteries was ordered. The CTA was just completed and results are not available at the time of this visit. Today he reports that he continues to have some shortness of breath with activity. He is denying shortness of breath at rest, PND, orthopnea or edema. No chest discomfort at rest or with activity. No palpitations, lightheadedness, presyncope, syncope. Compliant with medications. [facility] Medical History Biceps tendon rupture Varicose veins of right thigh Erectile dysfunction Barretts esophagus Depression Hyperlipidemia Varicose vein of leg Shingles Neuropathy Arthritis Diabetes Cardiac ischemia High cholesterol High blood pressure Surgical History H/O arthroscopy of right knee History of vasectomy S/P trigger finger release H/O lateral meniscus repair of right knee History of carpal tunnel surgery of left wrist History of carpal tunnel surgery of right wrist History of rotator cuff surgery History of tonsillectomy and adenoidectomy Family History Mother High blood pressure High cholesterol Cardiovascular disease Father High blood pressure High cholesterol Prostate cancer Esophagus cancer Social History Housing: Apartment Alcohol intake: current Alcohol intake frequency: holidays/special occasions only Patient Tobacco Use Status: Never used Tobacco e-Cigarette/Vaping Use: Never Used Second Hand Smoke Exposure: No service: No Current occupational status: employed Current occupation: [employer] Current occupational exposures/hazards: Yes Cognitive needs: No Hearing needs: No Vision needs: Yes Review of Systems Const All systems reviewed & are unremarkable except as noted in HPI and below Denies weakness ENT Reports dizziness Card Denies chest pain, Denies chest pain with activity, Denies syncope, Denies rapid heart rate, Denies pedal edema, Denies edema, Denies leg edema, Denies lightheadedness, Denies palpitations, Denies dyspnea, Reports dyspnea on exertion and Denies orthopnea Resp Denies cough, Denies dyspnea and Reports dyspnea on exertion GI Denies hematochezia and Denies change in stool character Musc Denies abnormal gait, Denies muscle cramps, Denies muscle weakness, Denies numbness, Denies radiating pain into limb and Denies tingling Neuro Denies abnormal gait, Reports dizziness, Denies syncope, Denies numbness, Denies tingling and Denies weakness Endo Denies palpitations Physical Exam Vital Signs: Last Vital Signs Pulse 67 03/31/25 09:34 BP 138/78 03/31/25 09:34 BMI result Body Mass Index 33.2 Const General: cooperative, healthy appearing, comfortable and no acute distress Orientation/consciousness: patient oriented x3 Neck Neck: Yes normal visual inspection and Yes no JVD Resp Effort & Inspection: normal respiratory effort Auscultation: clear to auscultation bilaterally, no rales, no rhonchi and no wheezes Cardio Rate: regular rate Rhythm: regular rhythm Heart sounds: S1 normal heart sound present, S2 normal heart sound present, no gallops, no murmurs and no rubs Neuro General: patient oriented x3 Extrem General: Yes normal to inspection, No no pedal edema and No calf tenderness Psych Appearance: grossly normal Mental Status: mental status grossly normal Speech and movement: Normal speech and movement present Assessment & Plan Assessment & Plan (1) Shortness of breath: Code(s): R06.02 - Shortness of breath Category: Medical Plan: Shortness of breath with activity in patient with cardiac risk factors of diabetes, hypertension, hyperlipidemia. Notes indicate cardiac catheterization was recommended at last visit however denied by insurance. He then underwent a CTA of the coronary arteries and results are not available at this time. Will plan to call him and determine a plan of care once results are available. At this time his symptoms are stable. Continue aspirin, high-dose atorvastatin, benazepril. Signs and symptoms of angina reviewed. Emergency care if ever needed. (2) Atherosclerotic cardiovascular disease: Code(s): I25.10 - Atherosclerotic heart disease of [place] coronary artery without angina pectoris Category: Medical Plan: Reported history of CAD with prior stress test showing ischemia. He states he was given nitroglycerin by another provider in the past. CTA results pending. (3) High blood pressure: Code(s): I10 - Essential (primary) hypertension Category: Medical Plan: Blood pressure goal less than 130/80. Mild elevation at this time. At he is currently on benazepril, also Jardiance. Reviewed low-salt diet. Recommended periodic home monitoring. Will further address at follow-up visit if remains elevated. (4) High cholesterol: Code(s): E78.00 - Pure hypercholesterolemia, unspecified Category: Medical Plan: [place] LDL goal less than 70 in patient with diabetes. Labs done 11/25/2024 showed LDL 77. Continue high-dose atorvastatin. Plan I discussed with the patient the potential outcomes of the cardiac CT scan, including the possibility of significant coronary artery narrowing that may require cardiac catheterization. We reviewed the importance of maintaining blood pressure and cholesterol control to manage coronary artery disease. I advised the patient to continue taking aspirin and atorvastatin and to remain physically active within his tolerance levels. Follow-up plans were discussed, contingent on the CT scan results, with potential for a two-week follow-up post-catheterization or a six-month follow-up for medical management. Patient Instructions: - Continue taking aspirin and atorvastatin as prescribed. - Monitor blood pressure regularly and report significant changes. - Stay physically active within your comfort level. - Watch for symptoms like chest pain or increased shortness of breath and report them. - Await follow-up call regarding CT scan results and further management plan. Patient was informed and verbally consented to the use of an ambient scribe for clinic note documentation during this visit. Visit time spent on chart review, interview, assessment, orders, documentation. Coding Level of Care Code Est Pt Level 3 (79223) Complex EM visit Add On G2211 Diagnoses Shortness of breath R06.02 Atherosclerotic cardiovascular disease I25.10 High blood pressure I10 High cholesterol E78.00 Time Spent (min) 24
== END 2025-03-31 10:09 | disposition home or self-care (01) ==
LOC: HO.HCS 09:17
PROVIDERS: PCP Nurse Practitioner Family; Visit Provider Nurse Practitioner Family
DX: R06.02 Shortness of breath (principal); I25.10 Atherosclerotic heart disease of native coronary artery without angina pectoris; I10 Essential (primary) hypertension; E78.00 Pure hypercholesterolemia, unspecified
CPT/HCPCS: 99213

== ENCOUNTER 2025-04-14 09:07 | Outpatient (AMB) | payer BC, SELFPAY ==
--- OUTSIDE RECORDS SUMMARY | 2024-12-02 04:30 | XMS_ITS ---
Author Organization [facility] Address [address] [place] [address] Care Team Providers Care Heavy Forging Machine Operator Name Role Phone Ibrahima PREDATORY ANIMAL TRAPPER, Theron Primary Care Provider Unavail Melanie Gomez Unavailable [phone] Encounters Encounter Location Date Provider Diagnosis [address] [address] 12/02/2024 Melanie Sargent Plan Of Treatment Next Appt Details Provider Name:Melanie harden, 06/16/2025 10:00:00 AM, [address] [place] [address], [address], Progress Notes * Prince REESDOB:[birth year] (69 yo M)Acc No.[id number]:12/02/2024 Progress Notes Patient: Darci Prince VALDEZ Provider: Baldemar Sargent DPM :1955 A ge:69 Y S ex:Male Date:12/02/2024 Address:[address] [place] [address], [address], [place], [place] Pcp:Theron Alexandra NP Subjective: * Chief Complaints: * * Medical History: Objective: * Vitals: Assessment: Plan: * Treatment: * Images: * The named appointment provid er may or may not be the originator of this progress note, and it is not deemed complete until electronically signed by the appointment provider. Sign off status: Pending * Provider: Baldemar Sargent, DPM Date: 0 12/02/2024 Generated for Carrie velez/Arun/Ladarius on: 0 04/14/2025 09:22 AM EDT
--- NOTE | 2025-04-14 09:11 | A.OFFPC_ITS ---
Vital Signs 04/14/25 09:17 04/14/25 09:32 Height 5 ft 10 in Weight 238 lb 2 oz BMI 34.2 BP 139/77 130/70 Blood Pressure Location Lt brachial Lt brachial Position Sitting Sitting Respiration 16 Pulse 75 Pulse Source Pulse Oximeter Temp 98.6 F Temp Source Oral Pulse Oximetry (%) 95 Oxygen Delivery Method Room Air Intake Visit Reasons: 3 mos HTN, DM Intake Note: patient her for 3 month follow up on HTN and DM Hose Tubing Backer Required: No Allergies No Known Allergies Allergy (Verified 04/14/25 09:28) Medication List - Last Reconciled 04/14/25 by Ford Alexandra CNP aspirin 81 mg PO DAILY atorvastatin 80 mg PO BEDTIME 90 days benazepril 20 mg PO DAILY 90 days dulaglutide (Trulicity) 1.5 mg (0.5 mL) subcut QWEEK empagliflozin (Jardiance) 25 mg PO QAM escitalopram oxalate 10 mg PO DAILY 90 days gabapentin 600 mg PO BID meloxicam 15 mg PO DAILY metformin 500 mg PO DAILY miscellaneous medical supply 1 pair orthopedic shoes nitroglycerin 0.4 mg sublingual Q5M PRN Tobacco use date assessed: 04/14/25 Fall risk assessment: No Falls in past year Last assessed Fall Risk: 04/14/25 Dental Screening Dental Screen Date: 04/14/25 Did you have a dental visit in the last 12 months?: Yes Did you have a dental problem in the last 6 months where you did not have access to dental care?: No Was dental information given to patient?: Patient has dentist HPI HPI Comments History of Present Illness Details 69-year-old male presents for hypertensi on and diabetes follow-up. He admits to taking his medications as prescribed without adverse reactions. He notes that he has been making healthy dietary choices and exercising routinely. He notes that he recently started being sexually active after 10 years of inactivity. He reports erectile dysfunction and requests treatment. Followed by [facility] cardiology for cardiovascular disease. [facility] Medical History (Updated 04/14/25 @ 09:41 by Ford Alexandra CNP) Biceps tendon rupture Varicose veins of right thigh Erectile dysfunction Barretts esophagus Depression Hyperlipidemia Varicose vein of leg Shingles Neuropathy Arthritis Diabetes Cardiac ischemia High cholesterol High blood pressure Surgical History H/O arthroscopy of right knee History of vasectomy S/P trigger finger release H/O lateral meniscus repair of right knee History of carpal tunnel surgery of left wrist History of carpal tunnel surgery of right wrist History of rotator cuff surgery History of tonsillectomy and adenoidectomy Family History Mother High blood pressure High cholesterol Cardiovascular disease Father High blood pressure High cholesterol Prostate cancer Esophagus cancer Social History Housing: Apartment Alcohol intake: current Alcohol intake frequency: holidays/special occasions only Patient Tobacco Use Status: Never used Tobacco e-Cigarette/Vaping Use: Never Used Second Hand Smoke Exposure: No service: No Current occupational status: employed Current occupation: [employer] Current occupational exposures/hazards: Yes Cognitive needs: No Hearing needs: No Vision needs: Yes Questionnaire Thrive Questionnaire Date Thrive assessed: 11/29/24 I am a: Patient What is your living situation today?: I have a steady place to live Within the past 12 months, did the food you bought not last and you didn't have the money to get more?: Never true Within the past 12 months, did you worry whether your food would run out before you got money to buy more?: Never true Do you have trouble paying for medicines?: No Do you have trouble getting transportation to medical appointments?: No Do you have trouble paying your heating and electricity bill?: No Do you have trouble taking care of your child, family member or friend?: No Do you have trouble with day-to-day activities such as bathing, preparing meals, shopping, managing finances, etc.?: No Are you currently unemployed and looking for a job?: No Are you interested in more education?: Yes Please select the resources that you would like help with: None Currently or been in a relationship where the following occur: No concerns reported THRIVE Score: 0 KAREEN-7 AMB Questionnaire KAREEN-7 Date KAREEN - 7 assessed: 12/02/24 Source: Developed by Drs. Marko Castillo, Teri Donaldson, Jay Colindres and colleagues, with an educational jeanette from [employer]. Review of Systems Const Details: Const Denies chills, Denies fatigue, Denies fever(s), Denies headache(s) and Denies weakness ENT Denies dizziness and Denies headache(s) Card Denies chest pain, Denies lightheadedness, Denies dyspnea and Denies other (Palpitations) Resp Denies cough, Denies dyspnea, Denies wheezing and Denies other ( shortness of breath) GI Denies abdominal pain, Denies melena, Denies hematochezia, Denies change in bowel habits, Denies dyspepsia and Denies nausea Reports ED, Denies hematuria and Denies dysuria Musc Denies abnormal gait, Denies myalgias, Denies arthralgias, Denies numbness and Denies tingling Skin/Breast Denies rash, Denies unusual bruising and Denies wounds Neuro Denies abnormal gait, Denies dizziness, Denies headache(s), Denies memory loss, Denies numbness, Denies Sensory deficit (Neuro), Denies tingling and Denies weakness Psych Denies anxiety, Denies depression, Denies memory loss Endo Denies cold intolerance, Denies fatigue, Denies heat intolerance, Denies polydipsia and Denies polyuria Aller/Immun Denies wheezing Physical exam (Primary Care) Tobacco/Smoking Status: Tobacco use Status Tobacco use date assessed 12/02/24 04/14/25 09:15 Patient Tobacco Use Status Never used Tobacco 04/14/25 09:15 e-Cigarette/Vaping Use Never Used 04/14/25 09:15 Thrive Assessment: Date of Thrive Assessment Date Thrive assessed 11/29/24 04/14/25 09:15 Currently or been in a relationship where the following occur: No concerns reported Const Other: General: no acute distress and well developed Nutritional Appearance: well nourished Orientation/consciousness: patient oriented x3 HENMT Head: Yes normocephalic and Yes atraumatic Eyes General: appearance normal, both eyes and all related structures Pupils: Equal, round and reactive pupils present EOM: EOMs intact bilaterally Resp Effort & Inspection: normal respiratory effort Auscultation: clear to auscultation bilaterally Cardio Rate: regular rate Rhythm: regular rhythm Heart sounds: S1 normal heart sound present, S2 normal heart sound present, no gallops, no murmurs and no rubs GI Palpation (GI): No Abdominal aortic bruit present, Soft to palpation, nontender, No hepatosplenomegaly present and No Rebound tenderness present Auscultation: normal bowel sounds General: Yes no CVA tenderness Back/Spine/Pelvis Back: no CVA tenderness Cervical Spine: cervical ROM normal and No Cervical spine tenderness Thoracic/Lumbar Spine: thoraco-lumbar ROM normal, No pain with thoraco-lumbar ROM, No thoracic spinal tenderness and No lumbar spinal tenderness Extrem General: Yes normal to inspection, No edema and No calf tenderness Skin General: warm and dry. Normal skin color. Normal skin turgor Neuro General: patient oriented x3, gait normal and no focal neuro deficit Cranial nerves: Yes Equal, round and reactive pupils present Cognition (Neuro): normal cognition Gait exam (Neuro): Normal gait present Sensory Exam: No Sensory deficit (Neuro) Psych Appearance: grossly normal Affect: normal affect Attitude: cooperative Thought process: Normal thought process present Results AMB Hemoglobin A1c AMB Hemoglobin A1c 6.8 % Last Edit by Lucinda Grant MA on 04/14/25 09:32 Coding Level of Care Code Est Pt Level 4 (38946) Diagnoses High blood pressure I10 Diabetes E11.9 Erectile dysfunction N52.9 Assessment & Plan Assessment & Plan (1) High blood pressure: Code(s): I10 - Essential (primary) hypertension Category: Medical Plan: Resting blood pressure is 130/70, slightly above goal of less than 130/80. Metformin increased to 500 mg twice daily; advised to take as prescribed. Continue current treatment regimen. Low-sodium diet and routine exercise encouraged. Follow-up in 3 months or sooner with symptoms or concerns. Verbalized understanding and agreed with the plan. (2) Diabetes: Code(s): E11.9 - Type 2 diabetes mellitus without complications Category: Medical Plan: A1c today is 6.8%, within goal of less than 7.0%. Previous A1c was 6.5%. Continue current treatment regimen. ADA diet and routine exercise encouraged. Will recheck A1c in 3 months. Verbalized understanding and agreed with the plan. (3) Erectile dysfunction: Code(s): N52.9 - Male erectile dysfunction, unspecified Category: Medical Plan: He notes that he recently started being sexually active after 10 years of inactivity. He reports erectile dysfunction and requests treatment. Referred to urology for further workup given his history of hypertension, diabetes, and cardiovascular disease. Orders: Orders AMB Hemoglobin A1c Today Z13.9 - Encounter for screening, unspecified Referrals Urology Referral N52.9 - Male erectile dysfunction, unspecified Medications: Changed From metformin 500 mg PO DAILY 90 tabs 1RF To metformin 500 mg PO BID 90 tabs 1RF
[2025-04-14 09:17] VITALS: BP 139/77; PULSE 75; RESP 16; TEMP 37; O2SAT 95; BMI 34.2
--- OUTSIDE RECORDS SUMMARY | 2025-04-14 09:22 | XMS_ITS | Clinical Summary ---
Author Organization [facility] Address [address] [place] [address] Care Team Providers Care Wet Finisher Name Role Phone Lyla Brar APRN Primary [...] 86 06/03/2023 1:16 PM EDT Temperature 36.5 C (97.7 F) 05/21/2022 9:10 AM EDT Respiratory Rate 14 12/14/2014 12:35 PM EDT [...] (2 of 2 - PCV) 10/27/2023 10/27/2022 Colon Cancer Screening (Colonoscopy) 12/14/2024 12/14/2014 Influenza Vaccine (#1) 2025 07/15/2022 RSV Adult > 60+ Yrs or Pregn ant (1 - 1-dose 75+ series) 2031 Hepatitis B Vaccines Aged Out No long er eligible based on patient's age to complete this topic RSV Ped < 20 months Aged Out No longe r eligible based on patient's age to complete this topic Advance Directives For more information, please contact: [phone] Latest Code Status on File Code Status [...] following way: discussion with patient. Care Teams Wet Finisher Relationship Specialty Start Date End Date Lyla Brar APRN [address] [place] [address] PCP - General Family Medicine 09/22/14
--- OUTSIDE RECORDS SUMMARY | 2025-04-14 09:22 | XMS_ITS | Clinical Summary ---
Author Organization [facility] Address [address] [place] [id number] Care Team Providers Care Small Parts Assembler Name Role Phone Ford Aleaxndra KETAN Primary Care Provider [phone] Allergies No known active allergies Medications Atorvastatin Calcium (LIPITOR PO) Take by mouth. Active Dulaglutide (TRULICITY SC) Inject under the skin. Active MELOXICAM PO Take by mouth. Active GABAPENTIN PO Take by mouth. Active METFORMIN HCL PO Take by mouth. Active ASPIRIN 81 PO Take by mouth. Active Social History Tobacco Use Types Packs/Day Years Used Date Smoking Tobacco: Never Smokeless Tobacco: Never Alcohol Use Standard Drinks/Week Comments Yes 0 (1 standard drink = 0.6 oz pur e alcohol) socially Sex and Gender Information Value Date Recorded Sex Assigned at Not on file Legal Sex Male 11:40 AM EDT Gender Identity Not on file Sexual Orientation Not on file Last Filed Vital Signs Vital Sign Reading Time Taken Comments Blood Pressure 149/83 06/17/2019 12:25 AM EDT Pulse 75 06/17/2019 12:25 AM EDT Temperature 36.9 C (98.4 F) 06/17/2019 12:25 AM EDT Respiratory Rate 16 06/17/2019 12:25 AM EDT [...] Zoster (Shingles) Vaccine (1 of 2) 2006 COVID-19 Vaccine (4 - season) 2024 09/03/2022, 02/04/2021, 01/14/2021 Influenza Vaccine 05/05/2025 07/15/2022, , 06/25/2016, Additional history exists RSV Vaccine 60 years and older and Patients (1 - 1-dose 75+ series) 2031 Hepatitis B Vaccines Aged Out No long er eligible based on patient's age to complete this topic Insurance [facility] WORKER'S COMP ESIS/[employer] [place] [facility] [employer] Care Teams Small Parts Assembler Relationship Specialty Start Date End Date Ford Alexandra NP [address] [place] [id number] PCP - General 08/25/24
--- OUTSIDE RECORDS SUMMARY | 2025-04-14 09:22 | XMS_ITS | Clinical Summary ---
Author Organization [facility] Address [address] [place] [address] Care Team Providers Care Hosting Engineer Name Role Phone Lyla Brar AS400 ANALYST Primary Care Provider [phone] Surgical History Surgery Date Site/Laterality Comments UPPER GASTROINTESTINAL ENDOSCOPY PROCEDURE:UPPER GASTROINTESTINAL ENDOSCOPY COLONOSCOPY PROCEDURE:COLONOSCOPY TONSILLECTOMY PROCEDURE:TONSILLECTOMY HAND SURGERY PROCEDURE:HAND SURGERY;COMMENT:galo carpal tunnel SHOULDER SURGERY PROCEDURE:SHOULDER SURGERY;COMMENT:rt rotator cuff VEIN SURGERY PROCEDURE:VEIN SURGERY;COMMENT:rt leg vein stripping COLONOSCOPY 12/14/2014 N/A PROCEDURE:COLONOSCOPY;COMMENT :Procedure: COLONOSCOPY SCREEN; Surgeon: Molly Aponte MD; Location: [facility] END[facility]COPY; Service: Gastroenterology; Laterality: N/A; UPPER GASTROINTESTINAL ENDOSCOPY 10/03/2014 N/A PROCEDURE:UPPER GASTROINTESTINAL ENDOSCOPY;COMMENT:Procedure: UPPER ENDOSCOPY-EGD, ABDOMINAL PAIN, GI BLEED; Surgeon: Molly Aponte MD; Location: [facility] END[facility]COPY; Service: Gastroenterology; Laterality: N/A; Medical History Medical History Date Comments GERD (gastroesophageal reflux disease) DX:GERD (gastroesophageal reflux disease) Levy esophagus DX:Levy eso phagus Hypertension DX:Hypertension Hyperlipidemia DX:Hyperlipidemi a Peripheral neuropathy DX:Periphe ral neuropathy Diabetes mellitus, type II ( CMS/HCC V24, CMS/HCC V28) DX:Diabetes mellitus, type I I ([facility]) Rash DX:Rash;COMMENT: occ fungus infection on feet [...] Screening (Lipid Panel) 12/18/2024 12/19/2019 Influenza Vaccine (#1) 2025 RSV Immunization Adult Patie nts (1 [...] age to complete this topic Care Teams Hosting Engineer Relationship Specialty Start Date End Date Lyla Brar NP [address] [place] [id number] PCP - General Family Medicine 09/22/14
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
[2025-04-14 09:32] VITALS: BP 130/70
== END 2025-04-14 09:42 | disposition home or self-care (01) ==
LOC: HO.HMCFM 09:08
PROVIDERS: PCP Nurse Practitioner Family; Visit Provider Nurse Practitioner Family
DX: I10 Essential (primary) hypertension (principal); E11.9 Type 2 diabetes mellitus without complications; N52.9 Male erectile dysfunction, unspecified; Z13.9 Encounter for screening, unspecified

== ENCOUNTER → 2025-04-14 09:07 | Outpatient (BNVA) | payer BC, SELFPAY | PROVIDERS: PCP Nurse Practitioner Family; Visit Provider Nurse Practitioner Family | DX: I10 Essential (primary) hypertension (principal); E11.9 Type 2 diabetes mellitus without complications; N52.9 Male erectile dysfunction, unspecified | CPT/HCPCS: 83036 ==

== ENCOUNTER 2025-07-05 12:00 | Outpatient (AMB) | payer BC, SELFPAY ==
[2025-07-05 12:20] VITALS: BP 158/90; PULSE 79; TEMP 36.9; O2SAT 97; BMI 34.4
--- NOTE | 2025-07-05 12:20 | AM.OFFWIN_ITS ---
Intake Vital Signs 07/05/25 12:20 Height 5 ft 10 in Weight 240 lb BMI 34.4 BP 158/90 H Blood Pressure Location Lt brachial Position Sitting Pulse 79 Pulse Source Pulse Oximeter Temp 98.5 F Temp Source Oral Pulse Oximetry (%) 97 Oxygen Delivery Method Room Air Intake Visit Reasons: EP pink eye Intake Note: pt presents with right eye redness and weeping Patient Tobacco Use Status: Never used Tobacco Allergies No Known Allergies Allergy (Verified 07/05/25 12:20) Do you need a note to return to daycare/school/sports/work: Yes HPI HPI Comments History of Present Illness Details History of Present Illness - The patient is a 70-year-old male pres enting with symptoms suggestive of pink eye. - Symptoms began last night with weeping and discharge from the right eye. - The discharge was green-yellow, crusty . - The patient reports slight blurriness in vision. - No significant pain or vision changes were noted. Physical Exam General: Cooperative, healthy appearing, comfortable, no acute distress and well developed Orientation: Patient oriented x3 Limitations: No limitations Head: Normal to inspection Ears: Hearing grossly normal bilaterally Nose: Normal External nose present Face and sinus: Normal facial exam Eyes: Right eye with injection and green/yellow discharge, left eye normal Neck: Normal visual inspection and Yes full ROM Respiratory: Normal respiratory effort and able to speak in complete sentences. Skin: No rashes or lesions noted Neuro: Patient oriented x3 Extremities: Normal to inspection Review of Systems - Eyes: Reports discharge and slight jess rriness in the right eye. Denies significant pain or vision changes. All systems reviewed and are unremarkable except as noted in HPI [facility] Medical History (Updated 07/05/25 @ 12:41 by Gabbi Moran PA-C) Biceps tendon rupture Varicose veins of right thigh Erectile dysfunction Barretts esophagus Depression Hyperlipidemia Varicose vein of leg Shingles Neuropathy Arthritis Diabetes Cardiac ischemia High cholesterol High blood pressure Surgical History H/O arthroscopy of right knee History of vasectomy S/P trigger finger release H/O lateral meniscus repair of right knee History of carpal tunnel surgery of left wrist History of carpal tunnel surgery of right wrist History of rotator cuff surgery History of tonsillectomy and adenoidectomy Family History Mother High blood pressure High cholesterol Cardiovascular disease Father High blood pressure High cholesterol Prostate cancer Esophagus cancer Social History Housing: Apartment Alcohol intake: current Alcohol intake frequency: holidays/special occasions only Patient Tobacco Use Status: Never used Tobacco e-Cigarette/Vaping Use: Never Used Second Hand Smoke Exposure: No service: No Current occupational status: employed Current occupation: [employer] Current occupational exposures/hazards: Yes Cognitive needs: No Hearing needs: No Vision needs: Yes Physical Exam Vital Signs: Last Vital Signs Temp 98.5 F 07/05/25 12:20 Pulse 79 07/05/25 12:20 BP 158/90 H 07/05/25 12:20 Pulse Ox 97 07/05/25 12:20 Oxygen Delivery Method Room Air 07/05/25 12:20 BMI result Body Mass Index 34.4 Assessment & Plan Assessment & Plan (1) Bacterial conjunctivitis of right eye: Code(s): H10.9 - Unspecified conjunctivitis Plan: Patient was informed and verbally consented to the use of an ambient scribe for clinic note documentation during this visit. Conjunctivitis - Erythromycin ophthalmic ointment prescribed for application to the right eye four times daily for seven days. - Emphasized the importance of hand hygiene to prevent transmission to the other eye. - Advised to notify the clinic if symptoms develop in the left eye for further prescription. Medications: New erythromycin Apply to left eye 4 times a day while awake 0.5 inches ophthalmic-Right QID 3.5 grams 0RF Coding Level of Care Code Est Pt Level 3 (43330) Diagnoses Bacterial conjunctivitis of right eye H10.9
--- OUTSIDE RECORDS SUMMARY | 2025-07-05 13:32 | XMS_ITS ---
Author Name [facility] Organization Unknown History of Medication Use Medication Directions Dispensed Refills Start Date End Date Stat us METFORMIN HCL PO Take by mouth. active Problems Problem Status Onset Date Problem Type Date of Resoluti on Source Injury active EncounterDiagnosisAct [facility] Encounters Encounter Type Encounter Reason Primary Diagnosis Location Date Ambulatory Injury, unspecified, initial encounter Injury, unspecified, initial encounter [facility] [employer] [facility] 08/25/2024 Ambulatory [facility], [facility] 07/08/2024 Ambulatory [facility], [facility] 03[facility]04/2024 Ambulatory [facility], [facility] 09[facility]14/2023 Ambulatory [facility], [facility] 09/14/2023 Ambulatory [facility], [facility] 08/07/2023 Care Team Organization Name Specialty Phone Email Start Date End Da te [facility] Termed, PROVIDER Primary Care 02/10/2025 [facility] MARINA DE GUZMAN [facility]24 [facility] [employer] [facility] 08/25/2024 [facility] EMI LOU Primary Care 08/25/2024 [facility] NO PCP Primary Care 08/25/2024 [facility] Primary Care 08/25/2024 [facility] Primary Care 04/21/2024 [facility] Simran Kapadia Primary Care 12/10/2022 [facility], [facility] 10/08/2022 [facility] MARINA DE GUZMAN Primary Care 08/12/2022 [facility] SUSAN GARDINER Primary Care 08/09/2022 [facility], [facility] Ronald Gusman MD Primary Care 06/27/2021 05/23/2024
--- OUTSIDE RECORDS SUMMARY | 2025-07-05 13:32 | XMS_ITS | Clinical Summary ---
Author Organization [facility] Address [address] [place] [address] Care Team Providers Care Food Production Associate Name Role Phone Ford Alexandra KETAN Primary Care Provider [phone] Allergies No known active allergies Medications Atorvastatin [...] Health Maintenance Due Date Last Done Comments Advance Care Planning 1955 Hepatitis C Virus Screening 1955 DTaP/Tdap/Td Vaccines (1 - Tdap) 1975 Colonoscopy 2001 Pneumococcal Vaccines 50+ (1 of 1 - PCV) 2006 Zoster (Shingles) Vaccine (1 of 2) 2006 RSV Vaccine 60 years and older and Patients (1 - Risk 60-74 years 1-dose series) 2016 Influenza Vaccine 05/05/2025 07/15/2022, , 06/25/2016, Additional history exists COVID-19 Vaccine (2024- season) 2025 09/03/2022, 02/04/2021, 01/14/2021 Hepatitis B Vaccines Aged Out No long er eligible based on patient's age to complete this topic Insurance [employer] [facility] [employer] [facility] [employer] Care Teams Food Production Associate Relationship Specialty Start Date End Date Ford Alexandra NP [address] [place] [address] PCP - General 08/25/24
--- OUTSIDE RECORDS SUMMARY | 2025-07-05 13:32 | XMS_ITS | Clinical Summary ---
Author Organization [facility] Address [address] [place] [address] Care Team Providers Care Maternity Nurse Name Role Phone Lyla Brar APRN Primary [...] Advance Directives For more information, please contact: [phone] Latest Code Status on File Code Status [...] following way: discussion with patient. Care Teams Maternity Nurse Relationship Specialty Start Date End Date Lyla Brar APRN [address] [place] [address] PCP - General Family Medicine 09/22/14
--- OUTSIDE RECORDS SUMMARY | 2025-07-05 13:32 | XMS_ITS | Clinical Summary ---
Author Organization [facility] Address [address] [place] [address] Care Team Providers Care Floor Framer Name Role Phone Lyla Brar MERCHANDISING ASSISTANT Primary Care Provider [phone] Surgical History Surgery Date Site/Laterality Comments UPPER GASTROINTESTINAL ENDOSCOPY PROCEDURE:UPPER GASTROINTESTINAL ENDOSCOPY COLONOSCOPY PROCEDURE:COLONOSCOPY TONSILLECTOMY PROCEDURE:TONSILLECTOMY HAND SURGERY PROCEDURE:HAND SURGERY;COMMENT:galo carpal tunnel SHOULDER SURGERY PROCEDURE:SHOULDER SURGERY;COMMENT:rt rotator cuff VEIN SURGERY PROCEDURE:VEIN SURGERY;COMMENT:rt leg vein stripping COLONOSCOPY 12/14/2014 N/A PROCEDURE:COLONOSCOPY;COMMENT :Procedure: COLONOSCOPY SCREEN; Surgeon: Molly Aponte MD; Location: [facility]; Service: Gastroenterology; Laterality: N/A; UPPER GASTROINTESTINAL ENDOSCOPY 10/03/2014 N/A PROCEDURE:UPPER GASTROINTESTINAL ENDOSCOPY;COMMENT:Procedure: UPPER ENDOSCOPY-EGD, ABDOMINAL PAIN, GI BLEED; Surgeon: Molly Aponte MD; Location: [facility]; Service: Gastroenterology; Laterality: N/A; Medical History Medical History Date Comments GERD (gastroesophageal reflux disease) DX:GERD (gastroesophageal reflux disease) Levy esophagus DX:Levy eso phagus Hypertension DX:Hypertension Hyperlipidemia DX:Hyperlipidemi a Peripheral neuropathy DX:Periphe ral neuropathy Diabetes mellitus, type II ( CMS/HCC V24, CMS/HCC V28) DX:Diabetes mellitus, type I I ([facility]) Rash DX:Rash;COMMENT: occ fungus infection [...] Health Maintenance Due Date Last Done Comments Colorectal Cancer Screening: Colonoscopy 1955 DTaP,Tdap,and Td Vaccines (1 - Tdap) 1975 Pneumococcal Vaccine: 50+ Ye ars (1 of 1 - PCV) 2006 Zoster Vaccines (1 of 2) 2006 Abdominal Aortic Aneurysm (A AA) Screen 09/12/2022 Falls Risk Assessment 09/12/2022 Hepatitis C Screening 09/12/2022 Social Influencers of Health Screening 09/12/2022 Hypertension/CHF/CAD Annual BMP Blood Test 09/13/2022 12/19/2019 Depression Screening 10/05/2024 Cholesterol Screening (Lipid Panel) 12/18/2024 12/19/2019 COVID-19 Vaccine ( - 2023-2 5 season) 2025 Influenza Vaccine (#1) 2025 RSV Immunization Adult [...] age to complete this topic Care Teams Floor Framer Relationship Specialty Start Date End Date Lyla Brar NP [address] [place] [address] PCP - General Family Medicine 09/22/14
== END 2025-07-05 12:45 | disposition home or self-care (01) ==
PROVIDERS: PCP Nurse Practitioner Family; Visit Provider Physician Assistant
DX: H10.9 Unspecified conjunctivitis (principal)

== ENCOUNTER 2025-07-14 08:54 | Outpatient (REF) | payer BC, SELFPAY ==
--- OUTSIDE RECORDS SUMMARY | 2025-07-14 10:20 | XMS_ITS | Clinical Summary ---
Author Organization [facility] Address [address] [place] [address] Care Team Providers Care Software Application Tester Name Role Phone Lyla Brar BOTTLED BEVERAGE INSPECTOR Primary Care Provider [phone] Surgical History Surgery Date Site/Laterality Comments UPPER GASTROINTESTINAL ENDOSCOPY PROCEDURE:UPPER GASTROINTESTINAL ENDOSCOPY COLONOSCOPY PROCEDURE:COLONOSCOPY TONSILLECTOMY PROCEDURE:TONSILLECTOMY HAND SURGERY PROCEDURE:HAND SURGERY;COMMENT:galo carpal tunnel SHOULDER SURGERY PROCEDURE:SHOULDER SURGERY;COMMENT:rt rotator cuff VEIN SURGERY PROCEDURE:VEIN SURGERY;COMMENT:rt leg vein stripping COLONOSCOPY 12/14/2014 N/A PROCEDURE:COLONOSCOPY;COMMENT :Procedure: COLONOSCOPY SCREEN; Surgeon: Molly Aponte MD; Location: [facility]; Service: Gastroenterology; Laterality: N/A; UPPER GASTROINTESTINAL ENDOSCOPY 10/03/2014 N/A PROCEDURE:UPPER GASTROINTESTINAL ENDOSCOPY;COMMENT:Procedure: UPPER ENDOSCOPY-EGD, ABDOMINAL PAIN, GI BLEED; Surgeon: Molly Aponte MD; Location: [facility]; Service: Gastroenterology; Laterality: N/A; Medical History Medical History Date Comments GERD (gastroesophageal reflux disease) DX:GERD (gastroesophageal reflux disease) Levy esophagus DX:Levy eso phagus Hypertension DX:Hypertension Hyperlipidemia DX:Hyperlipidemi a Peripheral neuropathy DX:Periphe ral neuropathy Diabetes mellitus, type II ( CMS/HCC V24, CMS/HCC V28) DX:Diabetes mellitus, type I I ([facility]) Rash DX:Rash;COMMENT: occ fungus [...] age to complete this topic Care Teams Software Application Tester Relationship Specialty Start Date End Date Lyla Brar NP [address] [place] [phone] PCP - General Family Medicine 09/22/14
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
[2025-07-21 12:14] LABS: Testosterone, Free 58.0 pg/mL (35.0-155.0)
== END 2025-07-14 08:55 | disposition home or self-care (01) ==
LOC: HO.LAB 08:54
PROVIDERS: PCP Nurse Practitioner Family; Visit Provider Urology
DX: E11.69 Type 2 diabetes mellitus with other specified complication (principal); N52.1 Erectile dysfunction due to diseases classified elsewhere
CPT/HCPCS: 36415; 83002; 84402; 84403

== ENCOUNTER 2025-07-14 08:54 | Outpatient (AMB) | payer BC, SELFPAY ==
--- OUTSIDE RECORDS SUMMARY | 2024-12-02 04:30 | XMS_ITS ---
Author Organization [facility] Address [address] [place] [address] Care Team Providers Care Outside Barrel Lathe Operator Name Role Phone Ibrahima SAP PI ARCHITECT, Theron Primary Care Provider Unavail Melanie Gomez Unavailable [phone] Encounters Encounter Location Date Provider Diagnosis [address] [address] 12/02/2024 Melanie Sargent Plan Of Treatment Next Appt Details Provider Name:Melanie harden, 08/23/2025 09:00:00 AM, [address] [place] [address], [address], Progress Notes * Prince REESDOB:[birth year] (70 yo M)Acc No.[id number]:12/02/2024 Progress Notes Patient: Darci Prince VALDEZ Provider: Baldemar Sargent DPM :1955 A ge:69 Y S ex:Male Date:12/02/2024 Address:[address] [place] [address], [address], [place], [place] Pcp:Theron Alexandra NP Subjective: * Chief Complaints: * * Medical History: Objective: * Vitals: Assessment: Plan: * Treatment: * Images: * The named appointment provid er may or may not be the originator of this progress note, and it is not deemed complete until electronically signed by the appointment provider. Sign off status: Pending * Provider: Baldemar Sargent, JOHANA Date: 0 12/02/2024 Generated for Carrie velez/Arun/Ladarius on: 1 09:17 AM EDT
--- OUTSIDE RECORDS SUMMARY | 2025-06-16 06:00 | XMS_ITS ---
Author Organization [facility] Address [address] [place] [address] Care Team Providers Care Freight Handler Name Role Phone Ibrahima OPTICIAN MANAGER, Theron Primary Care Provider Unavail Melanie Gomez Unavailable [phone] Medications Medication SIG (Take, Route, Frequency, Duration) [...] Active Encounters Encounter Location Date Provider Diagnosis [facility] [address] [place] [address] 06/16/2025 Melanie Sargent Plan Of Treatment Next Appt Details Provider Name:Melanie harden, 08/23/2025 09:00:00 AM, [address] [place], [address], Progress Notes * Prince REES AdamDOB:[birth year] (70 yo M)Acc No.[id number]:06/16/2025 Progress Note Patient: Prince ANDINO Provider: Baldemar Sargent DPM :1955 A ge:70 Y S ex:Male Date:06/16/2025 Address:[address] [place], [place] [address] Pcp:Theron Alexandra NP Subjective: * Chief Complaints: [...] 06/16/2025 Generated for Carrie velez/Arun/Ladarius on: 1 09:16 AM EDT
--- NOTE | 2025-07-14 09:06 | MHC.OFFVIS ---
Intake Visit Reasons: erectile dysfunction Intake Note: Patient is present for ERECTILE DYFUNCTION Urology Medication:NONE Antibiotic Allergy:NONE Blood Thinner:ASPIRIN Seed Sales Manager Required: No Allergies No Known Allergies Allergy (Verified 07/21/25 09:44) HPI Comments Details: Prince is a pleasant male. He is a patient of . He is seen for the following urologic conditions - erectile dysfunction in setting of diabetes Progressive Erectile dysfunction in setting of diabetes Longstanding diabetes High-dose atorvastatin therapy with SSRI Labs - 04/28 HbA1c 6.5 Trial high-dose daily tadalafil with on demand PFSH Medical History (Updated 07/21/25 @ 09:57 by Ford Alexandra, CONTACT LENS LATHE OPERATOR) Biceps tendon rupture Varicose veins of right thigh Erectile dysfunction Barretts esophagus Depression Hyperlipidemia Varicose vein of leg Shingles Neuropathy Arthritis Diabetes Cardiac ischemia High cholesterol High blood pressure Surgical History H/O arthroscopy of right knee History of vasectomy S/P trigger finger release H/O lateral meniscus repair of right knee History of carpal tunnel surgery of left wrist History of carpal tunnel surgery of right wrist History of rotator cuff surgery History of tonsillectomy and adenoidectomy Family History Mother High blood pressure High cholesterol Cardiovascular disease Father High blood pressure High cholesterol Prostate cancer Esophagus cancer Social History Housing: Apartment Alcohol intake: current Alcohol intake frequency: holidays/special occasions only Patient Tobacco Use Status: Never used Tobacco e-Cigarette/Vaping Use: Never Used Second Hand Smoke Exposure: No service: No Current occupational status: employed Current occupation: [employer] Current occupational exposures/hazards: Yes Cognitive needs: No Hearing needs: No Vision needs: Yes Review of Systems Const Denies chills and Denies fever(s) Card Reports no additional complaints and Denies syncope Resp Denies cough GI Denies abdominal pain and Denies heartburn Reports as per HPI and Denies change in libido Neuro Denies syncope Psych Denies change in libido Endo Denies change in libido Physical Exam Const General: cooperative, healthy appearing, comfortable and no acute distress Orientation/consciousness: patient oriented x3 HEENT Face and sinus: Yes normal facial exam Mouth: moist mucous membranes Neck Neck: Yes normal visual inspection, Yes full ROM and Yes trachea midline Chest Chest palpation & inspection: normal inspection of the chest Resp Effort & Inspection: normal respiratory effort, able to speak in complete sentences and no respiratory distress GI Inspection: Yes normal to inspection Back/Spine/Pelvis Cervical Spine: normal cervical lordosis Thoracic/Lumbar Spine: thoracic and lumbar spine normal to inspection Skin General skin exam: no rashes or lesions noted Neuro General: patient oriented x3, gait normal, tone normal and moves all extremities Extrem General: Yes normal to inspection and Yes capillary refill normal Assessment & Plan Assessment & Plan (1) Erectile dysfunction associated with type 2 diabetes mellitus: Code(s): E11.69 - Type 2 diabetes mellitus with other specified complication; N52.1 - Erectile dysfunction due to diseases classified elsewhere Category: Medical Plan Three-month follow-up office lab work Orders: Orders Testosterone, Free/Total 07/14/25 E11.69 - Type 2 diabetes mellitus with other specified complication, N52.1 - Erectile dysfunction due to diseases classified elsewhere Lutenizing Hormone 07/14/25.69 - Type 2 diabetes mellitus with other specified complication, N52.1 - Erectile dysfunction due to diseases classified elsewhere Medications: New tadalafil 20 mg PO 1XD PRN 30 tabs 1RF sexual activity 30 days E11.69 - Type 2 diabetes mellitus with other specified complication, N52.1 - Erectile dysfunction due to diseases classified elsewhere tadalafil Intended as daily medication 10 mg PO ONCE 90 tabs 0RF sexual activity 90 days E11.69 - Type 2 diabetes mellitus with other specified complication, N52.1 - Erectile dysfunction due to diseases classified elsewhere Patient Instructions: This note is constructed using voice recognition software. While every effort has been made to ensure accuracy aircraft detail draftsperson errors may have been included. Imaging studies, laboratory and physical exam results were discussed and reviewed in detail. No major barriers to patient understanding were identified. An opportunity to ask questions regarding the treatment plan was provided. All questions were answered. The patient expressed understanding and agreement with the above treatment plan. The patient is aware they should contact our office by phone for worsening of their current condition or the appearance of new urologic symptoms. Compliance is encouraged with any medications and followup testing that is ordered. It is a privilege to participate in the urologic care of your patient. If you have any questions or concerns regarding treatment for the above conditions, or other urologic issues, please do not hesitate to contact me. The office telephone contact is [phone]. Sincerely, Dr Jun Santana MD, [facility] - Urology Compassionate Specialist Care for the Genitourinary System Coding Level of Care Code New Pt Level 4 (16444) Diagnoses Erectile dysfunction associated with type 2 diabetes mellitus E11.69; N52.1
--- OUTSIDE RECORDS SUMMARY | 2025-07-14 09:17 | XMS_ITS | Patient Health Record ---
[facility] Organization [facility] Address [address] [place] [address] Care Team Providers Care Special Education Administrator Name Role Phone Ibrahima ACEVES, Theron Primary Care Provider Unavail able ArleenMelanie harden Unavailable [phone] Allergies No Known Allergies Results Component Value Reference Range Notes HEMOGLOBIN A1C (GLYCOHEMOGLO BIN) Reviewed date:12/09/2024 10:33:06 AM Interpretation: Performing Lab: Notes/Report: HEMOGLOBIN A1C % (HH) 6.5 Reason For Referral No Information Medications Medication SIG (Take, Route, Frequency, Duration) Notes Start Date End Date Status Empagliflozin 10 MG 1 tablet Orally Once a day Active Trulicity 1.5 MG/0.5ML as directed Subcutaneous Active Jardiance 25 MG 1 tablet Orally Once a day Active Atorvastatin Calcium 80 MG 1 tablet Orally Once a day Active Nitroglycerin 0.4 MG 1 tablet under the tongue and allow to dissolve as needed. Take every 5 minutes up to 3 times if chest pain persists Sublingual Three times a day Active metFORMIN HCl 500 MG [...] Skin Lesion(s) (L85.1 Active amLODIPine Benzoate Not-Taking Immunizations Vaccine Route Administration Date Status Comme nts Influenza Unknown 08/05/2024 Administered Social History Tobacco Use: Social History Observation [...] Problem Acquired hammer toe of right foot ([id number] ) Other hammer toe(s) (acquired), right foot (M20.41) Active confirmed Problem Acquired hammer toe of left foot (7631394276755051 ) Other hammer toe(s) (acquired), left foot (M20.42) Active confirmed Problem Polyneuropathy due to type 2 diabetes mellitus (818095980) Type 2 diabetes mellitus with diabetic polyneuropathy (E11.42) Active confirmed Vital Signs Blood pressure diastolic 79 mm Hg 03/17/2025 Height 5ft 10in in 03/17/2025 Blood pressure systolic 117 mm Hg 03/17/2025 Weight 240 lbs 03/17/2025 BMI 34.43 kg/m2 03/17/2025 Encounters Encounter Location Date Provider Diagnosis [facility] [address] [address] 12/09/2024 Melanie Sargent Type 2 diabetes mellitus with diabetic polyneuropathy E11.42 ; Other hammer toe(s) (acquired), left foot M20.42 ; Tinea unguium B35.1 and Other hammer toe(s) (acquired), right foot M20.41 [facility] [address] [address] 03/17/2025 Melanie Sargent Type 2 diabetes mellitus with diabetic polyneuropathy E11.42 ; Other hammer toe(s) (acquired), left foot M20.42 ; Tinea unguium B35.1 and Other hammer toe(s) (acquired), right foot M20.41 [facility] [address] [place] [address] 09/21/2024 Melanie Sargent [facility] [address] [address] 01/02/2025 Melaniekaren Sargent [facility] [address] [address] 06/16/2025 Melanie Sargent Assessments Encounter Date Diagnosis (ICD Code) Assessment Notes Treatment Notes Treatment Clinical Notes Section Notes 12/09/2024 Other hammer toe(s) (acquired), left foot (ICD-10 - M20.42) 12/09/2024 Type 2 diabetes mellitus with diabetic polyneuropathy (ICD-10 - E11.42) 03/17/2025 Other hammer toe(s) (acquired), left foot (ICD-10 - M20.42) 03/17/2025 Type 2 diabetes mellitus with diabetic polyneuropathy (ICD-10 - E11.42) 03/17/2025 Tinea unguium (ICD-10 - B35.1) 12/09/2024 Tinea unguium (ICD-10 - B35.1) 03/17/2025 Other hammer toe(s) (acquired), right foot (ICD-10 - M20.41) Patient Educated with: DIABETIC FOOT CARE INSTRUCTIONS. pdf (DIABETIC FOOT CARE INSTRUCTIONS. pdf) 12/09/2024 Other hammer toe(s) (acquired), right foot (ICD-10 - M20.41) Patient Educated with: DIABETIC FOOT CARE INSTRUCTIONS. pdf (DIABETIC FOOT CARE INSTRUCTIONS. pdf) Plan Of Treatment Next Appt Details Provider Name:Melanie harden, 08/23/2025 09:00:00 AM, [address] [place] [address], [phone], Insurance Providers Payer Name Payer Address Payer Phone Subscriber Number Group Number Insured Name Patient Relationship to Insured Coverage Start Date Coverage End Date Aldo JAMES [address] [place] [address] [phone] [id number] Prince Rees Self - patient is the insured Medical (General) History Medical History History ICD Code Anxiety Arthritis CAD (Cholesterol) covid-19 type II diabetes Heart disease High Blood Pressure Numbness Scarlet fever Vascular phlebitis (clots) Measles Mumps Chicken pox Surgical History Surgery Date(Month/Year) tonsillectomy and adenoidectomy 1961 carpal tunnel surgery l/r 1988/1997/2012 rotator cuff tear repair 1994 vericose vein removed 2012 [facility] right 2022 [facility] left 2020 latenal mewiscus repair right 2014 trigger finger release 2021
--- OUTSIDE RECORDS SUMMARY | 2025-07-14 09:17 | XMS_ITS | Clinical Summary ---
Author Organization [facility] Address [address] [place] [address] Care Team Providers Care Binding Cutter Synthetic Cloth Name Role Phone Lyla Brar APRN Primary [...] Advance Directives For more information, please contact: [phone] Latest Code Status on File Code Status [...] following way: discussion with patient. Care Teams Binding Cutter Synthetic Cloth Relationship Specialty Start Date End Date Lyla Brar APRN [address] [place] [address] PCP - General Family Medicine 09/22/14
--- OUTSIDE RECORDS SUMMARY | 2025-07-14 09:17 | XMS_ITS | Clinical Summary ---
Author Organization [facility] Address [address] [place] [address] Care Team Providers Care Water Mechanic Name Role Phone Ford Alexandra KETAN Primary Care Provider [phone] Allergies No known active allergies Medications Atorvastatin [...] to complete this topic Insurance [employer] [facility] [facility] * Guarantor: Prince Rees Account Type Relation to Patient Date of Phone Billing Address Workers Comp Self 1955 [address] [facility] [address] [place] [id number] [employer] [facility] [place] [employer] Care Teams Water Mechanic Relationship Specialty Start Date End Date Ford Alexandra NP [address] [place] [address] PCP - General 08/25/24
== END 2025-07-14 09:40 | disposition home or self-care (01) ==
PROVIDERS: PCP Nurse Practitioner Family; Visit Provider Urology
DX: E11.69 Type 2 diabetes mellitus with other specified complication (principal); N52.1 Erectile dysfunction due to diseases classified elsewhere
CPT/HCPCS: 99204

== ENCOUNTER 2025-07-21 09:22 | Outpatient (REF) | payer BC, SELFPAY ==
--- OUTSIDE RECORDS SUMMARY | 2024-12-02 04:30 | XMS_ITS ---
Author Organization [facility] Address [address] [place] [address] Care Team Providers Care Commercial Real Estate Assistant Name Role Phone Ibrahima DIVING INSTRUCTOR, Theron Primary Care Provider Unavail Melanie Gomez Unavailable [phone] Encounters Encounter Location Date Provider Diagnosis [address] [address] 12/02/2024 Melanie Sargent Plan Of Treatment Next Appt Details Provider Name:Melanie harden, 08/23/2025 09:00:00 AM, [address] [place] [address], [phone], Progress Notes * Prince REESDOB:[birth year] (70 yo M)Acc No.[id number]:12/02/2024 Progress Notes Patient: Darci Prince VALDEZ Provider: Baldemar Sargent DPM :1955 A ge:69 Y S ex:Male Date:12/02/2024 Address:[address] [place] [address], [address], [place], [place] Pcp:Theron Alexandra NP Subjective: * Chief Complaints: * * Medical History: Objective: * Vitals: Assessment: Plan: * Treatment: * Images: * The named appointment provid er may or may not be the originator of this progress note, and it is not deemed complete until electronically signed by the appointment provider. Sign off status: Pending * Provider: Baldemar Sargent, DPSowmya Date: 0 12/02/2024 Generated for Carrie velez/Arun/Ladarius on: 1 11:36 AM EDT
--- OUTSIDE RECORDS SUMMARY | 2025-06-16 06:00 | XMS_ITS ---
Author Organization [facility] Address [address] [place] [address] Care Team Providers Care Potato Inspector Name Role Phone Ibrahima MULTIMEDIA INSTRUCTIONAL DESIGNER, Theron Primary Care Provider Unavail Melanie Gomez Unavailable [phone] Medications Medication SIG (Take, Route, Frequency, Duration) Notes Start Date End Date Status Jardiance 25 MG 1 tablet Orally Once a day Active Atorvastatin Calcium 80 MG 1 tablet Orally Once a day Active Benazepril HCl 20 MG Oral; Duration: 90 Days Active Extra Depth Orthopedic Shoes (1 Pair) with Customized Heat Molded Multidensity Innersoles (3 Pair) as directed Dx: NIDDM/Polyneuropathy (E11.42), Hammertoe Foot Deformity (M20.41,M20.42), Preulcerative Skin Lesion(s) (L85.1 Active amLODIPine Benzoate Not-Taking Empagliflozin 10 MG 1 tablet Orally Once a day Active Trulicity 1.5 MG/0.5ML as directed Subcutaneous Active metFORMIN HCl 500 MG 1 tablet with a justine l Orally Once a day Active Meloxicam 15 MG 1 tablet Orally Once a day Active Gabapentin 600 MG 1 tablet Orally Once a day Active Nitroglycerin 0.4 MG 1 tablet under the tongue and allow to dissolve as needed. Take every 5 minutes up to 3 times if chest pain persists Sublingual Three times a day Active Encounters Encounter Location Date Provider Diagnosis [facility] [address] [place] [address] 06/16/2025 Mealnie Sargent Plan Of Treatment Next Appt Details Provider Name:Melanie harden, 08/23/2025 09:00:00 AM, [address] [place], [address], Progress Notes * Prince REES AdamDOB:[birth year] (70 yo M)Acc No.[id number]:06/16/2025 Progress Note Patient: Prince ANDINO Provider: Baldemar Sargent DPM :1955 A ge:70 Y S ex:Male Date:06/16/2025 Address:[address] [place], [place] [address] Pcp:Theron Alexandra NP Subjective: * Chief Complaints: * * Medical History: A nxiety, Arthritis, CAD (Cholesterol), Covid-19, type II diabetes, Heart disease, High Blood Pressure, Numbness, Scarlet fever, Vascular phlebitis (clots), Measles, Mumps, Chicken pox. * Medications: T aking Nitroglycerin 0.4 MG Tablet Sublingual 1 tablet under the tongue and allow to dissolve as needed. Take every 5 minutes up to 3 times if chest pain persists Sublingual Three times a day , Taking metFORMIN HCl 500 MG Tablet 1 tablet with a meal Orally Once a day , Taking Meloxicam 15 MG Tablet 1 tablet Orally Once a day , Taking Gabapentin 600 MG Tablet 1 tablet Orally Once a day , Taking Empagliflozin 10 MG Tablet 1 tablet Orally Once a day , Taking Trulicity 1.5 MG/0.5ML Solution Auto-injector as directed Subcutaneous , Taking Jardiance 25 MG Tablet 1 tablet Orally Once a day , Taking Atorvastatin Calcium 80 MG Tablet 1 tablet Orally Once a day , Taking Benazepril HCl 20 MG Tablet Oral , Taking Extra Depth Orthopedic Shoes (1 Pair) with Customized Heat Molded Multidensity Innersoles (3 Pair) as directed Dx: NIDDM/Polyneuropathy (E11.42), Hammertoe Foot Deformity (M20.41,M20.42), Preulcerative Skin Lesion(s) (L85.1 , Not-Taking/PRN amLODIPine Benzoate Objective: * Vitals: Assessment: Plan: * Treatment: * Images: * The named appointment provid er may or may not be the originator of this progress note, and it is not deemed complete until electronically signed by the appointment provider. Sign off status: Pending * Provider: Baldemar Sargent DPM Date: 0 06/16/2025 Generated for Carrie velez/Arun/Ladarius on: 1 11:36 AM EDT
--- OUTSIDE RECORDS SUMMARY | 2025-07-21 11:36 | XMS_ITS | Patient Health Record ---
[facility] Address [address] [place] [address] Care Team Providers Care Dba Name Role Phone Ibrahima ACEVES, Theron Primary Care Provider Unavail able ArleenMelanie harden Unavailable [phone] Allergies No Known Allergies Results Component Value [...] Problem Acquired hammer toe of right foot (5992536782445142 ) Other hammer toe(s) (acquired), right foot (M20.41) Active confirmed Problem Acquired hammer toe of left foot (7803240066005224 ) Other hammer toe(s) (acquired), left foot (M20.42) Active confirmed Problem Polyneuropathy due to type 2 diabetes mellitus (510811548) Type 2 diabetes mellitus with diabetic polyneuropathy (E11.42) Active confirmed Vital Signs Blood pressure diastolic 79 mm Hg 03/17/2025 Height 5ft 10in in 03/17/2025 Blood pressure systolic 117 mm Hg 03/17/2025 Weight 240 lbs 03/17/2025 BMI 34.43 kg/m2 03/17/2025 Encounters Encounter Location Date Provider Diagnosis [facility] [address] [address] 12/09/2024 Melanie Sargent Type 2 diabetes mellitus with diabetic polyneuropathy E11.42 ; Other hammer toe(s) (acquired), left foot M20.42 ; Tinea unguium B35.1 and Other hammer toe(s) (acquired), right foot M20.41 [facility] [address] [address] 03/17/2025 Melanie Sargent Type 2 diabetes mellitus with diabetic polyneuropathy E11.42 ; Other hammer toe(s) (acquired), left foot M20.42 ; Tinea unguium B35.1 and Other hammer toe(s) (acquired), right foot M20.41 [facility] [address] [place] [address] 09/21/2024 Melanie Sargent [facility] [address] [address] 01/02/2025 Melaniekaren Sargent [facility] [address] [address] 06/16/2025 Melanie Sargent Assessments Encounter Date Diagnosis [...] Details Provider Name:Melanie harden, 08/23/2025 09:00:00 AM, [address] [place] [address], [id number], Insurance Providers Payer Name Payer Address Payer Phone Subscriber Number Group Number Insured Name Patient Relationship to Insured Coverage Start Date Coverage End Date Aldo JAMES [address] [place] [address] [phone] [id number] Prince Rees Self - patient is the insured Medical (General) History Medical History History ICD Code Anxiety Arthritis CAD (Cholesterol) covid-19 type II diabetes Heart disease High Blood Pressure Numbness Scarlet fever Vascular phlebitis (clots) Measles Mumps Chicken pox Surgical History Surgery Date(Month/Year) tonsillectomy and adenoidectomy 1961 carpal tunnel surgery l/r 1988/1997/2012 rotator cuff tear repair 1994 vericose vein removed 2012 [facility] [place] 2022 [facility] left 2020 latenal mewiscus repair right 2014 trigger finger release 2021
--- OUTSIDE RECORDS SUMMARY | 2025-07-21 11:36 | XMS_ITS | Clinical Summary ---
Author Organization [facility] Address [address] [place] [address] Care Team Providers Care Email Production Consultant Name Role Phone Lyal Brar OPHTHALMIC ASST Primary Care Provider [phone] Surgical History Surgery Date Site/Laterality Comments UPPER GASTROINTESTINAL ENDOSCOPY PROCEDURE:UPPER GASTROINTESTINAL ENDOSCOPY COLONOSCOPY PROCEDURE:COLONOSCOPY TONSILLECTOMY PROCEDURE:TONSILLECTOMY HAND SURGERY PROCEDURE:HAND SURGERY;COMMENT:galo carpal tunnel SHOULDER SURGERY PROCEDURE:SHOULDER SURGERY;COMMENT:rt rotator cuff VEIN SURGERY PROCEDURE:VEIN SURGERY;COMMENT:rt leg vein stripping COLONOSCOPY 12/14/2014 N/A PROCEDURE:COLONOSCOPY;COMMENT :Procedure: COLONOSCOPY SCREEN; Surgeon: Molly Aponte MD; Location: [facility]; Service: Gastroenterology; Laterality: N/A; UPPER GASTROINTESTINAL ENDOSCOPY 10/03/2014 N/A PROCEDURE:UPPER GASTROINTESTINAL ENDOSCOPY;COMMENT:Procedure: UPPER ENDOSCOPY-EGD, ABDOMINAL PAIN, GI BLEED; Surgeon: Molly Aponte MD; Location: [facility]; Service: Gastroenterology; Laterality: N/A; Medical History Medical History Date Comments GERD (gastroesophageal reflux disease) DX:GERD (gastroesophageal reflux disease) Levy esophagus DX:Levy eso phagus Hypertension DX:Hypertension Hyperlipidemia DX:Hyperlipidemi a Peripheral neuropathy DX:Periphe ral neuropathy Diabetes mellitus, type II ( CMS/HCC V24, CMS/HCC V28) DX:Diabetes mellitus, type I I (FORMERLY [facility]) Rash DX:Rash;COMMENT: occ fungus infection on feet [...] age to complete this topic Care Teams Email Production Consultant Relationship Specialty Start Date End Date Lyla Brar NP [address] [place] [id number] PCP - General Family Medicine 09/22/14
--- OUTSIDE RECORDS SUMMARY | 2025-07-21 11:37 | XMS_ITS | Clinical Summary ---
Author Organization [facility] Address [address] [place] [address] Care Team Providers Care [employer] Truck Driver Name Role Phone Lyla Brar APRN Primary [...] Advance Directives For more information, please contact: [phone] Latest Code Status on File Code Status [...] following way: discussion with patient. Care Teams Local [employer] Truck Driver Relationship Specialty Start Date End Date Lyla Brar APRN [address] [place] [address] PCP - General Family Medicine 09/22/14
--- OUTSIDE RECORDS SUMMARY | 2025-07-21 11:37 | XMS_ITS | Clinical Summary ---
Author Organization [facility] Address [address] [place] [id number] Care Team Providers Care Restaurant Line Cook Name Role Phone Ford Alexandra KETAN Primary Care Provider [phone] Allergies No known active allergies Medications Atorvastatin [...] 50+ (1 of 1 - PCV) 2006 RSV Vaccine 50 years and older and Patients (1 - Risk 50-74 years 1-dose series) 2006 Zoster (Shingles) Vaccine (1 of 2) 2006 Influenza Vaccine 05/05/2025 07/15/2022, , 06/25/2016, Additional history exists COVID-19 Vaccine (2024- season) 2025 09/03/2022, 02/04/2021, 01/14/2021 Hepatitis B Vaccines Aged Out No long er eligible based on patient's age to complete this topic Insurance [employer] [place] [facility] [employer] [place] [facility] [place] [employer] Care Teams Restaurant Line Cook Relationship Specialty Start Date End Date Ford Alexandra NP [address] [place] [id number] PCP - General 08/25/24
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
[2025-07-21 12:53] LABS: Resp Syncy Virus RNA Qual PCR NEGATIVE (Negative); SARS COV2 PCR INHOUSE NEGATIVE (Negative)
== END 2025-07-21 09:23 | disposition home or self-care (01) ==
LOC: HO.LAB 09:22
PROVIDERS: PCP Nurse Practitioner Family; Visit Provider Nurse Practitioner Family
DX: Z00.00 Encounter for general adult medical examination without abnormal findings (principal); I10 Essential (primary) hypertension; R05.9 Cough, unspecified; E11.9 Type 2 diabetes mellitus without complications; R09.89 Other specified symptoms and signs involving the circulatory and respiratory systems
CPT/HCPCS: 83036; 87637

== ENCOUNTER 2025-07-21 09:22 | Outpatient (AMB) | payer BC, SELFPAY ==
--- NOTE | 2025-07-21 09:26 | MHC.PC.OV ---
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: No Allergies No Known Allergies Allergy (Verified 07/21/25 09:44) Medication List - Last Reconciled 07/21/25 by Ford Alexandra CNP aspirin 81 mg PO DAILY atorvastatin 80 mg PO BEDTIME 90 days benazepril 20 mg PO DAILY 90 days dulaglutide (Trulicity) 1.5 mg (0.5 mL) subcut QWEEK empagliflozin (Jardiance) 25 mg PO QAM erythromycin 0.5 inches ophthalmic-Right QID escitalopram oxalate 10 mg PO DAILY 90 days gabapentin 600 mg PO BID meloxicam 15 mg PO DAILY metformin 500 mg PO BID miscellaneous medical supply 1 pair orthopedic shoes nitroglycerin 0.4 mg sublingual Q5M PRN tadalafil 20 mg PO 1XD PRN 30 days tadalafil 10 mg PO ONCE 90 days Tobacco use date assessed: 07/21/25 Fall risk assessment: 1 Fall in past year Last assessed Fall Risk: 07/21/25 Dental Screening Dental Screen Date: 07/21/25 Did you have a dental visit in the last 12 months?: Yes Did you have a dental problem in the last 6 months where you did not have access to dental care?: No Was dental information given to patient?: Patient has dentist HPI HPI Comments History of Present Illness Details 69-year-old male presents for hypertension and diabetes follow-up. He admits to taking his medications as prescribed without adverse reactions. He notes that he has been making healthy dietary choices and exercising routinely. He reports runny nose and predominantly dry cough with intermittent clear phlegm, and intermittent high-pitched ringing of the right ear; symptoms ongoing for the past 2 week. He has not taken any medication for his symptoms. He denies headache, sore throat, fever, chills, body aches, fatigue, or weakness. He was treated for conjunctivitis of the right eye at the walk-in 2 weeks ago. He lives alone. He denies known sick contacts but works at a [employer]. [facility] Medical History (Updated 07/21/25 @ 09:57 by Ford Alexandra CNP) Biceps tendon rupture Varicose veins of right thigh Erectile dysfunction Barretts esophagus Depression Hyperlipidemia Varicose vein of leg Shingles Neuropathy Arthritis Diabetes Cardiac ischemia High cholesterol High blood pressure Surgical History H/O arthroscopy of right knee History of vasectomy S/P trigger finger release H/O lateral meniscus repair of right knee History of carpal tunnel surgery of left wrist History of carpal tunnel surgery of right wrist History of rotator cuff surgery History of tonsillectomy and adenoidectomy Family History Mother High blood pressure High cholesterol Cardiovascular disease Father High blood pressure High cholesterol Prostate cancer Esophagus cancer Social History Housing: Apartment Alcohol intake: current Alcohol intake frequency: holidays/special occasions only Patient Tobacco Use Status: Never used Tobacco e-Cigarette/Vaping Use: Never Used Second Hand Smoke Exposure: No service: No Current occupational status: employed 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 [employer] Current occupational exposures/hazards: Yes Cognitive needs: No Hearing needs: No Vision needs: Yes Questionnaire Thrive Questionnaire Date Thrive assessed: 11/29/24 I am a: Patient What is your living situation today?: I have a steady place to live Within the past 12 months, did the food you bought not last and you didn't have the money to get more?: Never true Within the past 12 months, did you worry whether your food would run out before you got money to buy more?: Never true Do you have trouble paying for medicines?: No Do you have trouble getting transportation to medical appointments?: No Do you have trouble paying your heating and electricity bill?: No Do you have trouble taking care of your child, family member or friend?: No Do you have trouble with day-to-day activities such as bathing, preparing meals, shopping, managing finances, etc.?: No Are you currently unemployed and looking for a job?: No Are you interested in more education?: Yes Please select the resources that you would like help with: None Currently or been in a relationship where the following occur: No concerns reported THRIVE Score: 0 KAREEN-7 AMB Questionnaire KAREEN-7 Date KAREEN - 7 assessed: 12/02/24 Source: Developed by Drs. Marko Castillo, Teri Donaldson, Jay Colindres and colleagues, with an educational jeanette from [employer]. Review of Systems Const Details: Const Denies chills, Denies fatigue, Denies fever(s), Denies headache(s) and Denies weakness ENT Reports as per HPI Card Denies chest pain, Denies lightheadedness, Denies dyspnea and Denies other (Palpitations) Resp Reports cough, Denies dyspnea, Denies wheezing and Denies other ( shortness of breath) GI Denies abdominal pain, Denies melena, Denies hematochezia, Denies change in bowel habits, Denies dyspepsia and Denies nausea Denies hematuria and Denies dysuria Musc Denies abnormal gait, Denies myalgias, Denies arthralgias, Denies numbness and Denies tingling Skin/Breast Denies rash, Denies unusual bruising and Denies wounds Neuro Denies abnormal gait, Denies dizziness, Denies headache(s), Denies memory loss, Denies numbness, Denies Sensory deficit (Neuro), Denies tingling and Denies weakness Psych Denies anxiety, Denies depression, Denies memory loss Endo Denies cold intolerance, Denies fatigue, Denies heat intolerance, Denies polydipsia and Denies polyuria Aller/Immun Denies wheezing Physical exam (Primary Care) Vital Signs: Last Vital Signs Temp 97.5 F 07/21/25 09:31 Pulse 74 07/21/25 09:31 Resp 16 07/21/25 09:31 BP 145/73 H 07/21/25 09:31 Pulse Ox 98 07/21/25 09:31 Oxygen Delivery Method Room Air 07/21/25 09:31 BMI result Body Mass Index 34.6 Tobacco/Smoking Status: Tobacco use Status Tobacco use date assessed 07/21/25 07/21/25 09:41 Patient Tobacco Use Status Never used Tobacco 07/21/25 09:28 e-Cigarette/Vaping Use Never Used 07/21/25 09:28 Thrive Assessment: Date of Thrive Assessment Date Thrive assessed 11/29/24 07/21/25 09:28 Currently or been in a relationship where the following occur: No concerns reported Const Other: General: no acute distress and well developed Nutritional Appearance: well nourished Orientation/consciousness: patient oriented x3 HENMT Head is normocephalic Bilateral ear canal and TM are normal Nasal turbinates and oropharynx are pink and moist Sinuses are nontender with palpation No auricular or cervical lymphadenopathy Eyes General: appearance normal, both eyes and all related structures Pupils: Equal, round and reactive pupils present EOM: EOMs intact bilaterally Resp Effort & Inspection: normal respiratory effort Auscultation: clear to auscultation bilaterally Cardio Rate: regular rate Rhythm: regular rhythm Heart sounds: S1 normal heart sound present, S2 normal heart sound present, no gallops, no murmurs and no rubs GI Palpation (GI): No Abdominal aortic bruit present, Soft to palpation, nontender, No hepatosplenomegaly present and No Rebound tenderness present Auscultation: normal bowel sounds General: Yes no CVA tenderness Back/Spine/Pelvis Back: no CVA tenderness Cervical Spine: cervical ROM normal and No Cervical spine tenderness Thoracic/Lumbar Spine: thoraco-lumbar ROM normal, No pain with thoraco-lumbar ROM, No thoracic spinal tenderness and No lumbar spinal tenderness Extrem General: Yes normal to inspection, No edema and No calf tenderness Skin General: warm and dry. Normal skin color. Normal skin turgor Neuro General: patient oriented x3, gait normal and no focal neuro deficit Cranial nerves: Yes Equal, round and reactive pupils present Cognition (Neuro): normal cognition Gait exam (Neuro): Normal gait present Sensory Exam: No Sensory deficit (Neuro) Psych Appearance: grossly normal Affect: normal affect Attitude: cooperative Thought process: Normal thought process present Results AMB Hemoglobin A1c AMB Hemoglobin A1c 6.6 % Last Edit by MAYKEL Sorensen on 07/21/25 10:16 Coding Level of Care Code Est Pt Level 4 (63741) Complex EM visit Add On G2211 Diagnoses Diabetes E11.9 High blood pressure I10 Upper respiratory symptom R09.89 Laboratory tests ordered as part of a complete physical exam (CPE) Z00.00 Assessment & Plan Assessment & Plan (1) Diabetes: Code(s): E11.9 - Type 2 diabetes mellitus without complications Category: Medical Plan: A1c today 6.6%, within goal of less than 7.0%. Previous A1c was 6.8%. Continue current treatment regimen. ADA diet and routine exercise encouraged. Perform fasting lab work before next visit. Follow-up in 6 weeks for an extended physical exam and labs review. Return sooner with symptoms or concerns. Verbalized understanding and agreed with the plan. (2) High blood pressure: Code(s): I10 - Essential (primary) hypertension Category: Medical Plan: Resting blood pressure is 130/82, slightly above goal of less than 130/80. Continue current treatment regimen. Low-sodium diet encouraged. Will continue to monitor. Verbalized understanding and agreed with the plan. (3) Upper respiratory symptom: Code(s): R09.89 - Other specified symptoms and signs involving the circulatory and respiratory systems Category: Medical Plan: Likely allergies though possibly viral. No exam evidence of bacterial infection Viral illness There is no antibiotic medication for viruses.? They must run their course.? Most average 5-7 days but 7-10 days is not uncommon and up to 14 days is still possible.? A cough is often the last symptom to resolve and this can last for weeks in some cases. Rest Hydrate well -? Drink plenty of fluids.? Especially water Tylenol or ibuprofen for muscle aches, headache, fever/discomfort Cetirizine and benzonatate as prescribed. Cannot rule out COVID-19/RSV/Flu infection Nasal swab acquired and will be sent to the lab Return for new or worsening symptoms Verbalized understanding and agreed with treatment plan. (4) Laboratory tests ordered as part of a complete physical exam (CPE): Code(s): Z00.00 - Encounter for general adult medical examination without abnormal findings Category: Medical Plan: Fasting labs ordered as part of a complete physical exam. Advised to fast for at least 10 hours before getting labs drawn. May drink water Verbalized understanding and agreed with treatment plan. Orders: Orders SARS-CoV2/FLU/RSV Today R09.89 - Other specified symptoms and signs involving the circulatory and respiratory systems Liver Panel Today Z00.00 - Encounter for general adult medical examination without abnormal findings Complete Blood Count Auto Diff Today Z00.00 - Encounter for general adult medical examination without abnormal findings AMB Hemoglobin A1c Today Z13.9 - Encounter for screening, unspecified Lipid Panel Today Z00.00 - Encounter for general adult medical examination without abnormal findings PSA, Ultra Sensitive Today Z00.00 - Encounter for general adult medical examination without abnormal findings TSH reflex Free T4 Today Z00.00 - Encounter for general adult medical examination without abnormal findings Vitamin D 25-OH Total Today Z00.00 - Encounter for general adult medical examination without abnormal findings Microalbumin, Random (w Creat) Today Z00.00 - Encounter for general adult medical examination without abnormal findings Medications: New cetirizine 10 mg PO DAILY 30 tabs 0RF 30 days benzonatate 100 mg PO BID PRN 10 caps 0RF cough
[2025-07-21 09:31] VITALS: BP 145/73; PULSE 74; RESP 16; TEMP 36.4; O2SAT 98; BMI 34.6
[2025-07-21 09:48] VITALS: BP 130/82
== END 2025-07-21 10:19 | disposition home or self-care (01) ==
LOC: HO.HMCFM 09:23
PROVIDERS: PCP Nurse Practitioner Family; Visit Provider Nurse Practitioner Family
DX: E11.9 Type 2 diabetes mellitus without complications (principal); I10 Essential (primary) hypertension; R09.89 Other specified symptoms and signs involving the circulatory and respiratory systems; Z00.00 Encounter for general adult medical examination without abnormal findings; Z13.9 Encounter for screening, unspecified

== ENCOUNTER 2025-09-08 10:10 | Outpatient (REF) | payer BC, SELFPAY ==
--- OUTSIDE RECORDS SUMMARY | 2025-09-08 13:52 | XMS_ITS | Clinical Summary ---
Author Organization [facility] Address [address] [place] [address] Care Team Providers Care Household Chores Name Role Phone Lyla Brar BATH MIX OPERATOR Primary Care Provider Surgical History Surgery Date [...] DX:Diabetes mellitus, type I I ([facility]) Rash DX:Rash;COMMENT: occ fungus infection [...] Screening (Lipid Panel) 12/18/2024 12/19/2019 COVID-19 Vaccine (1 - 2024-2 6 season) 2025 Influenza Vaccine (#1) 2025 RSV [...] age to complete this topic Care Teams Household Chores Relationship Specialty Start Date End Date Lyla Brar NP [address] [place] [phone] PCP - General Family Medicine 09/22/14
--- OUTSIDE RECORDS SUMMARY | 2025-09-08 13:52 | XMS_ITS | Clinical Summary ---
Author Organization [facility] Address [address] [place] [address] Care Team Providers Care Abrasive Worker Name Role Phone Ford Alexandra KETAN Primary Care Provider [phone] Allergies No known active allergies Medications Atorvastatin [...] to complete this topic Insurance [employer] [place] [facility] [employer] [place] [facility] [employer] Care Teams Abrasive Worker Relationship Specialty Start Date End Date Ford Alexandra NP [address] [place] [address] PCP - General 08/25/24
--- OUTSIDE RECORDS SUMMARY | 2025-09-08 13:52 | XMS_ITS | Clinical Summary ---
Author Organization [facility] Prior to 03/04/25 Address [address] [place] [address] Care Team Providers Care Punch Machine Operator Name Role Phone Lyla Brar APRN Primary [...] Advance Directives For more information, please contact: [phone] Latest Code Status on File Code Status [...] following way: discussion with patient. Care Teams Punch Machine Operator Relationship Specialty Start Date End Date Lyla Brar APRN [address] [place] [address] PCP - General Family Medicine 09/22/14
[2025-09-08 14:16] LABS: MANUAL DIFF FLAG NO
[2025-09-08 14:25] LABS: Hematocrit 49.2 % (42.0-52.0); Hemoglobin 15.9 g/dl (14.0-18.0); Imm Gran Abs Auto 0.02 X10*3/uL (0.00-0.03); Imm Gran Pct Auto 0.4 % (0.0-0.4); Lymphocytes Absolute Auto 1.5 X10*3/uL (1.2-4.9); Mean Corpuscular HGB Conc 32.3 g/dl (31.0-36.0); Mean Corpuscular Hemoglobin 31.2 pg (27.0-33.0); Mean Corpuscular Volume 96.5 fL (80.0-98.0); NRBC Abs Auto 0.000 X10*3/uL (0.0-0.012); NRBC Pct Auto 0.0 /100WBC (0.0-0.2); Platelet Count 199 X10*3/uL (160-400); Red Blood Count 5.10 X10*6/uL (4.60-5.80); White Blood Count 5.7 X10*3/uL (4.8-10.8)
[2025-09-08 18:44] LABS: Alanine Aminotransferase 44 U/L (0-40); Albumin Level 4.7 g/dL (3.5-5.0); Alkaline Phosphatase 77 U/L (39-117); Aspartate Amino Transferase 52 U/L (5-37); Cholesterol 202 mg/dL (<200); HDL Cholesterol 78 mg/dL (>40); Total Protein 7.2 g/dL (6.5-8.0); Triglycerides 63 mg/dL (<150)
[2025-09-13 02:38] LABS: PSA, Ultra Sensitive 1.93 ng/mL
== END 2025-09-08 10:11 | disposition home or self-care (01) ==
LOC: HO.WFDLDS 10:10
PROVIDERS: PCP Nurse Practitioner Family; Visit Provider Nurse Practitioner Family
DX: Z00.00 Encounter for general adult medical examination without abnormal findings (principal); Z12.5 Encounter for screening for malignant neoplasm of prostate; Z12.11 Encounter for screening for malignant neoplasm of colon; I10 Essential (primary) hypertension; Z79.82 Long term (current) use of aspirin; Z79.85 Long-term (current) use of injectable non-insulin antidiabetic drugs; Z79.84 Long term (current) use of oral hypoglycemic drugs; Z79.899 Other long term (current) drug therapy
CPT/HCPCS: 36415; 80061; 80076; 82306; 84153; 84443; 85025; 90471; 90656; 96127

== ENCOUNTER 2025-09-08 10:10 | Outpatient (AMB) | payer BC, SELFPAY ==
--- NOTE | 2025-09-08 10:12 | MHC.PC.OV ---
Vital Signs 09/08/25 10:19 09/08/25 10:37 Height 5 ft 10 in Weight 240 lb 2 oz BMI 34.5 BP 148/74 H 120/76 Blood Pressure Location Rt brachial Rt brachial Position Sitting Sitting Respiration 16 Pulse 67 Pulse Source Pulse Oximeter Temp 97.5 F Temp Source Oral Pulse Oximetry (%) 99 Oxygen Delivery Method Room Air Intake Visit Reasons: 6 wks CPE, labs review Intake Note: patient here for CPE. 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 Required: No Allergies No Known Allergies Allergy (Verified 09/08/25 10:29) Medication List - Last Reconciled 09/08/25 by Ford Alexandra CNP aspirin 81 mg PO DAILY atorvastatin 80 mg PO BEDTIME 90 days benazepril 20 mg PO DAILY 90 days cetirizine 10 mg PO DAILY dulaglutide (Trulicity) 1.5 mg (0.5 mL) subcut QWEEK empagliflozin (Jardiance) 25 mg PO QAM escitalopram oxalate 10 mg PO DAILY 90 days gabapentin 600 mg PO BID meloxicam 15 mg PO DAILY metformin 500 mg PO BID miscellaneous medical supply 1 pair orthopedic shoes nitroglycerin 0.4 mg sublingual Q5M tadalafil 20 mg PO 1XD PRN 30 days tadalafil 10 mg PO ONCE 90 days Tobacco use date assessed: 09/08/25 Fall risk assessment: No Falls in past year Last assessed Fall Risk: 09/08/25 Dental Screening Dental Screen Date: 09/08/25 Did you have a dental visit in the last 12 months?: Yes Did you have a dental problem in the last 6 months where you did not have access to dental care?: No Was dental information given to patient?: Patient has dentist HPI HPI Comments History of Present Illness Details 70-year-old male presents for an extended physical exam and review of recent lab results. He admits to taking his medications as prescribed without adverse reactions. He did not perform blood work for this visit as planned but will do so at the end of visits visit. Acute issue(s) - None Past Medical History - Type 2 diabetes, hyperlipidemia, hypertension, Levy's esophagus, erectile dysfunction, cardiac ischemia, arthritis of hands and knees right bicep tendon rupture, varicose vein of right thigh and left leg, shingles, myopia, hyperopia, generalized anxiety disorder, depression Social History - Nonsmoker. Does not vape. Drinks 1-2 beers twice monthly. Denies recreational drug use - Has been making healthy dietary choices. Exercises routinely. Generally sleep well Health maintenance - Last eye exam was 11/04/2024 with [facility] : No retinopathy. 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 Referred to [facility] for a colonoscopy - last foot exam was with [facility] in 12/09/2024; has a f/u in 11/2024 Specialists - [facility]rology - [facility] - [facility] - Youth Care Worker [facility] Medical History Biceps tendon rupture Varicose veins of right thigh Erectile dysfunction Barretts esophagus Depression Hyperlipidemia Varicose vein of leg Shingles Neuropathy Arthritis Diabetes Cardiac ischemia High cholesterol High blood pressure Surgical History H/O arthroscopy of right knee History of vasectomy S/P trigger finger release H/O lateral meniscus repair of right knee History of carpal tunnel surgery of left wrist History of carpal tunnel surgery of right wrist History of rotator cuff surgery History of tonsillectomy and adenoidectomy Family History Mother High blood pressure High cholesterol Cardiovascular disease Father High blood pressure High cholesterol Prostate cancer Esophagus cancer Social History Housing: Apartment Alcohol intake: current Alcohol intake frequency: holidays/special occasions only Patient Tobacco Use Status: Never used Tobacco e-Cigarette/Vaping Use: Never Used Second Hand Smoke Exposure: No service: No Current occupational status: employed Current occupation: [employer] Current occupational exposures/hazards: Yes Cognitive needs: No Hearing needs: No Vision needs: Yes Questionnaire PHQ-9 Over the last 2 weeks, how often have you been bothered by any of the following problems? 1. Little interest or pleasure in doing things: not at all 2. Feeling down, depressed, or hopeless: not at all 3. Trouble falling or staying asleep, or sleeping too much: not at all 4. Feeling tired or having little energy: not at all 5. Poor appetite or overeating: not at all 6. Feeling bad about yourself - or that you are a failure or have let yourself or your family down: not at all 7. Trouble concentrating on things, such as reading the newspaper or watching television: not at all 8. Moving or speaking so slowly that other people could have noticed. Or the opposite - being so fidgety or restless that you have been moving around a lot more than usual: not at all 9. Thoughts that you would be better off or of hurting yourself in some way: not at all Total score: 0 Depression Screening Interpretation: Negative Depression Screening Done: Yes 84297 - PHQ-9 Billing: Yes Source: Developed by Drs. Marko Castillo, Teri Donaldson, Jay Colindres and colleagues, with an educational jeanette from [employer]. Thrive Questionnaire Date Thrive assessed: 09/08/25 I am a: Patient What is your living situation today?: I have a steady place to live Within the past 12 months, did the food you bought not last and you didn't have the money to get more?: Never true Within the past 12 months, did you worry whether your food would run out before you got money to buy more?: Never true Do you have trouble paying for medicines?: No Do you have trouble getting transportation to medical appointments?: No Do you have trouble paying your heating and electricity bill?: No Do you have trouble taking care of your child, family member or friend?: No Do you have trouble with day-to-day activities such as bathing, preparing meals, shopping, managing finances, etc.?: No Are you currently unemployed and looking for a job?: No Are you interested in more education?: Yes Please select the resources that you would like help with: None Currently or been in a relationship where the following occur: No concerns reported THRIVE Score: 0 AUDIT C Alcohol Use Questionnaire (AUDIT-C) 1. How often do you have a drink containing alcohol?: 2-4 times a month 2. How many drinks containing alcohol do you have on a typical day when you are drinking?: 1 or 2 3. How often do you have six or more drinks on one occasion?: Never Total Score: 2 Score Reviewed/Action Taken: Yes KAREEN-7 AMB Questionnaire KAREEN-7 Date KAREEN - 7 assessed: 09/08/25 Feeling nervous, anxious, or on edge: 1 = Several days Not being able to stop or control worryin = Not at all Worrying too much about different things: 0 = Not at all Trouble relaxin = Several days Being so restless that it is hard to sit still: 0 = Not at all Becoming easily annoyed or irritable: 1 = Several days Feeling afraid as if something awful might happen: 0 = Not at all Total KAREEN-7 score (0-4 normal; 5-9 mild; 10-14 moderate; 15-21 severe): 3 Source: Developed by Drs. Marko Castillo, Teri Donaldson, Jay Colindres and colleagues, with an educational jeanette from [employer]. KAREEN-7 Assessment Billing KAREEN-7 Assessment Tool: KAREEN-7 Assessment 21199 Review of Systems Const Details: Denies chills, Denies fatigue, Denies fever(s), Denies headache(s) and Denies weakness HEENT Denies change in vision, Denies dizziness, Denies headache(s), Denies hearing loss, Denies nasal congestion, Denies sinus pain, Denies sinus pressure and Denies sore throat Card Denies chest pain, Denies lightheadedness, Denies dyspnea and Denies other (palpitations) Resp Denies cough, Denies dyspnea and Denies wheezing GI Denies abdominal pain, Denies melena, Denies hematochezia, Denies change in bowel habits, Denies dyspepsia and Denies nausea Denies hematuria and Denies dysuria Musc Denies abnormal gait, Denies myalgias, Denies arthralgias, Denies numbness and Denies tingling Skin/Breast Denies rash, Denies unusual bruising and Denies wounds Neuro Denies abnormal gait, Denies dizziness, Denies headache(s), Denies memory loss, Denies numbness, Denies Sensory deficit (Neuro), Denies tingling and Denies weakness Psych Denies anxiety, Denies depression and Denies memory loss Endo Denies cold intolerance, Denies fatigue, Denies heat intolerance, Denies polydipsia and Denies polyuria Rico/Lymph Denies easy bleeding and Denies easy bruising Aller/Immun Denies wheezing Physical exam (Primary Care) Vital Signs: Last Vital Signs Temp 97.5 F 09/08/25 10:19 Pulse 67 09/08/25 10:19 Resp 16 09/08/25 10:19 BP 120/76 09/08/25 10:37 Pulse Ox 99 09/08/25 10:19 Oxygen Delivery Method Room Air 09/08/25 10:19 BMI result Body Mass Index 34.5 Tobacco/Smoking Status: Tobacco use Status Tobacco use date assessed 09/08/25 09/08/25 10:23 Patient Tobacco Use Status Never used Tobacco 09/08/25 10:13 e-Cigarette/Vaping Use Never Used 09/08/25 10:13 PHQ-9: PHQ-9 Score PHQ-9: Total score 0 09/08/25 11:00 Depression Screening Interpretation: Negative Thrive Assessment: Date of Thrive Assessment Date Thrive assessed 09/08/25 09/08/25 10:23 Currently or been in a relationship where the following occur: No concerns reported Const Other: General: no acute distress, well developed, alert and awake Nutritional Appearance: well nourished Orientation/consciousness: patient oriented x3 HENMT Head: Yes normocephalic and Yes atraumatic Ears: hearing grossly normal bilaterally and TM's normal bilaterally General nose exam: Normal external nose present and Normal nares present Mouth: Normal oral and palatal mucosa present and moist mucous membranes Teeth and gingiva: dentition normal Throat: Yes oropharynx normal Eyes Pupils: Equal, round and reactive pupils present and Pupil accommodation reflex normal EOM: EOMs intact bilaterally Neck Neck: Yes normal visual inspection, Yes no lymphadenopathy and Yes trachea midline Thyroid: Thyroid normal Carotids: no bruits Lymphatic: no lymphadenopathy noted Chest Chest palpation & inspection: normal inspection of the chest Resp Effort & Inspection: normal respiratory effort Auscultation: clear to auscultation bilaterally Cardio Rate: regular rate Rhythm: regular rhythm Heart sounds: S1 normal heart sound present, S2 normal heart sound present, no gallops, no murmurs and no rubs Bruits: no abdominal aortic bruits and no carotid bruits GI Palpation (GI): No Abdominal aortic bruit present, Soft to palpation, nontender, No hepatosplenomegaly present and No Rebound tenderness present Auscultation: normal bowel sounds General: Yes no CVA tenderness Back/Spine/Pelvis Back: no CVA tenderness Cervical Spine: cervical ROM normal and No Cervical spine tenderness Thoracic/Lumbar Spine: thoraco-lumbar ROM normal, No pain with thoraco-lumbar ROM, No thoracic spinal tenderness and No lumbar spinal tenderness Skin General: warm and dry. Normal skin color. Normal skin turgor Lesions: no lesions Rashes: no rashes Trauma: no lacerations or abrasions Wounds: no wounds Nails: normal Neuro General: patient oriented x3, gait normal and CN's II-XI intact bilaterally Cranial nerves: Yes Equal, round and reactive pupils present Cognition (Neuro): normal cognition Gait exam (Neuro): Normal gait present Motor exam (neuro): 5/5 motor strength present throughout Sensory Exam: No Sensory deficit (Neuro) Deep tendon reflexes (DTR's): Right patellar reflex intensity grade: 2+ and Left patellar reflex intensity grade: 2+ Extrem General: Yes normal to inspection, No edema and No calf tenderness Psych Appearance: grossly normal Affect: normal affect Attitude: cooperative Thought process: Normal thought process present Office Procedures Flu Questionnaire Does the patient have a severe egg allergy?: No Does the patient have severe life threatening allergies?: No Does the patient have a fever or illness today?: No Has the patient ever had Guillain-[place] Syndrome?: No Has the patient ever had any past reaction to a flu shot?: No Immunizations Fluarix [id number] (PF) 45 mcg (15 mcg x 3)/0.5 mL IM syringe Performing Provider: Ford Alexandra CNP Performing Location: [facility] Administered by: Yesika May RN on 09/08/25 10:59 Dose Route Admin Location Dispensed Lot Number Expiration Date [place] Motor Racer 0.5 mL IM Left Deltoid 0.5 mL [id number] 04/03/26 10470-696-57 [employer] VIS Given Date VIS Provided VIS Publication Date 09/08/25 Single Vaccine 24 Eligibility Eligibility Date Funding Source Not [facility] Eligible 09/08/25 Private Coding Level of Care Code Est Pt Level 3 (41380) Est Pt Prev Care >65y(23847) Diagnoses Normal physical examination, routine Z00.00 High blood pressure I10 Colon cancer screening Z12.11 Additional Codes KAREEN-7 Assessment Billing - KAREEN-7 Assessment Tool: KAREEN-7 Assessment 74045 ([id number]) PHQ-9 - 45234 - PHQ-9 Billing: Yes ([id number]) Assessment & Plan Assessment & Plan (1) Normal physical examination, routine: Code(s): Z00.00 - Encounter for general adult medical examination without abnormal findings Category: Medical Plan: No significant functional limitations noted. Continue current treatment regimen. Healthy diet and routine exercise encouraged. He will perform lab work today. Will review results and make changes as needed. Follow-up in 2 months with a new provider within the practice for transfer of care, hypertension, diabetes, and depression. Return sooner with symptoms or concerns. Verbalized understanding and agreed with the plan. (2) High blood pressure: Code(s): I10 - Essential (primary) hypertension Category: Medical Plan: Resting blood pressure is 120/76, within goal of less than 130/80. Continue current treatment regimen. Low-sodium diet encouraged. Follow-up in 2 months. Verbalized understanding and agreed with the plan. (3) Colon cancer screening: Code(s): Z12.11 - Encounter for screening for malignant neoplasm of colon Category: Medical Plan: Last colonoscopy was 10 years ago. Referred to [facility] gastroenterology for a colonoscopy. Orders: Orders Influenza [id number] Immunization Today Z23 - Encounter for immunization Referrals Gastroenterology Referral Z12.11 - Encounter for screening for malignant neoplasm of colon
[2025-09-08 10:19] VITALS: BP 148/74; PULSE 67; RESP 16; TEMP 36.4; O2SAT 99; BMI 34.5
[2025-09-08 10:37] VITALS: BP 120/76
== END 2025-09-08 11:03 | disposition home or self-care (01) ==
LOC: HO.HMCFM 10:11
PROVIDERS: PCP Nurse Practitioner Family; Visit Provider Nurse Practitioner Family
DX: Z00.00 Encounter for general adult medical examination without abnormal findings (principal); I10 Essential (primary) hypertension; Z12.11 Encounter for screening for malignant neoplasm of colon; Z23 Encounter for immunization